=== PATIENT | male | born 1950 | race African-American/Black ===

== ENCOUNTER 2017-05-25 05:42 | Inpatient (IN) | payer OTHER ==
[2017-05-25] VITALS (18 sets, daily range): BP systolic 96–128; BP diastolic 58–74
[~2017-05-25] VITALS: Ht 188 cm; Wt 72.9 kg
--- NOTE | ~2017-05-25 | HC ---
[facility] [place] [address] CONSULTATION Name: JINNY BURT Room #: 245-P ADM IN M.R.#: [id number] Admission: 05/25/17 Attend Phys: Cory Collier MD Discharge: Date of : 48 Report #: [id number] THIS REPORT FOR: //name// CC: Simon Collier REASON FOR CONSULTATION: I was asked to evaluate concerning healthcare-associated, ventilator-associated pneumonia. HISTORY OF PRESENT ILLNESS: The patient was a 66-year-old who was initially admitted to [facility] on January 18 where he was found to be poorly responsive and had aspirated. He was intubated and had evidence of a large right pneumonia and pleural effusion. He has bullous emphysema and there was some concern that he had hemorrhage in one of the bullae. He required tracheostomy and a PEG tube placement and was transferred to [facility] for ventilatory weaning. This did not occur and ultimately transferred to [facility] for further care. He is now admitted with increasing pulmonary infiltrates and oxygen requirements. The patient was unable to give me any further details of his history. He had a left lower lobe infiltrate seen on x-ray yesterday. Has a moderate amount of tracheal secretions. No recent antibiotics. ALLERGIES: None. MEDICATIONS: As noted on his NOV. PAST MEDICAL HISTORY: BPH, hypertension, atrial fibrillation, emphysema, COPD, spontaneous pneumothorax, pancreatic cyst, respiratory failure. FAMILY HISTORY AND SOCIAL HISTORY: Otherwise not available. REVIEW OF SYSTEMS: The patient has a tracheostomy, peripheral IV in his right neck, indwelling Hancock catheter, PEG tube, incontinent of liquid stool. PHYSICAL EXAMINATION: VITAL SIGNS: He is afebrile and hemodynamically stable. He is on FIO2 of 50%. GENERAL: He was alert and cooperative. HEENT: Unremarkable. Tracheostomy site was unremarkable. LUNGS: Coarse bilaterally. HEART: Regular, without murmur. ABDOMEN: Soft with PEG site unremarkable. Indwelling Hancock catheter. The patient was incontinent of liquid stool that was throughout his bed. EXTREMITIES: Unremarkable. Generalized weakness noted. LABORATORY STUDIES: Sodium 122, potassium 6.2, bicarbonate 38, creatinine 0.5, albumin of 1.6. Troponin negative. BNP 2800. INR 1.1. Hemoglobin 8.4, [address] [address] CONSULTATION Name: JINNY BURT Room #: [address] [place] [address] IN M.R.#: [id number] Admission: 05/25/17 Attend Phys: Cory Collier MD Discharge: Date of : 48 Report #: [id number] platelet count 603,000. WBC 8.0, 81% segs, 0% bands, 4% lymphs. C. difficile by PCR is pending. MRSA by PCR is pending. Urinalysis unremarkable. ABG on FiO2 of 50% showed a pO2 of 85, pCO2 77, pH 7.34. Blood and sputum cultures are pending. Chest x-ray: Cardiomegaly with vascular congestion and bilateral pleural effusions with atelectasis and infiltrate in the bases. This is more marked on the right. Abdominal x-ray: Nonspecific bowel gas pattern. Lower extremity ultrasound negative for DVT. IMPRESSION: Respiratory failure with basilar infiltrates and purulent sputum production associated with hyponatremia and hyperkalemia. This fits with healthcare-associated pneumonia, ventilator-associated. Need to be concerned about nosocomial organisms. PLAN: Recommend broad antibiotic coverage pending culture results. The patient had liquid stools after receiving Kayexalate. We will need to ensure no C. difficile colitis as well. We will continue full support in the Intensive Care Unit and discuss with nursing staff. We will adjust antibiotic course pending culture results. By: 1625 2043 Jose Luis Crouch MD /nt
--- NOTE | ~2017-05-25 | EKG ---
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 Marina GAGE : 1950 Requested By: Susanna Thompson Order Number: [id number] MD: Fausto Royal Measurements Intervals [place] Rate: 68 P: 81 PA: 153 QRS: -16 QRSD: 125 T: 78 QT: 408 QTc: 434 Interpretive Statements Sinus rhythm Nonspecific intraventricular conduction delay Anterior infarct, old Compared to ECG 05/25/2017 07:31:18 Intraventricular conduction delay now present Criteria for anterior infarct more prominent Right bundle-branch block no longer present Electronically Signed On 05-25-2017 17:08:39 CDT by Fausto Royal [email or web address] <ELECTRONICALLY SIGNED> By: Fausto Royal MD, [facility] 05/25/17 1708 1214 1214 Fausto Royal MD, [facility] /EPI
--- NOTE | ~2017-05-25 | H ---
[facility] [place] [address] HISTORY AND PHYSICAL Name: JINNY BURT Room #: 245-P ADM IN M.R.#: [id number] Admission: 05/25/17 Attend Phys: Cory Collier MD Discharge: Date of : 48 Report #: [id number] THIS REPORT FOR: //name// CC: Simon Collier DATE OF SERVICE: 05/25/2017 CHIEF COMPLAINT: Shortness of breath. HISTORY OF PRESENT ILLNESS: The patient is a 66-year-old gentleman transferred from [facility] for continued care of recent respiratory failure. The history is very limited as he is not able to provide much detail. However, there were concerns of developing pneumonia based on x-ray and changes in oxygen requirement. He was also noted to have significant electrolyte lab abnormalities as well with severe hyponatremia and hyperkalemia. PAST MEDICAL HISTORY: Chronic hypoxic hypercapnic respiratory failure. He had previously been treated at [facility], ventilator dependence. PAST SURGICAL HISTORY: He has had a trach and PEG. FAMILY HISTORY: Unknown. SOCIAL HISTORY: Unknown. ALLERGIES: None. MEDICATIONS: DuoNeb, amiodarone, Hytrin, Remeron, Xanax, Pulmicort, MiraLax. REVIEW OF SYSTEMS: He opens his eyes to his name, but really cannot provide any other review or details. PHYSICAL EXAMINATION: VITAL SIGNS: Temperature 36.5, pulse 65, respirations 20, blood pressure 102/66, O2 sat 98% on the ventilator, 50% FIO2. GENERAL, HEAD AND NECK: Unremarkable. LUNGS: Clear anteriorly. HEART: Regular, no murmur. ABDOMEN: Soft, normoactive bowel sounds. PEG tube in place. EXTREMITIES: No cyanosis, clubbing or edema. LABORATORY DATA: Sodium 119, potassium 7, creatinine 0.5. White count is 8, hemoglobin 8.4. ABG with pH 7.3, pCO2 80, pO2 109. Chest x-ray shows bilateral pleural effusions with atelectasis. [facility] [place] [address] HISTORY AND PHYSICAL Name: JINNY BURT Room #: 245-P [facility] IN M.R.#: [id number] Admission: 05/25/17 Attend Phys: Cory Collier MD Discharge: Date of : 48 Report #: [id number] ASSESSMENT: 1. Acute on chronic hypercapnic respiratory failure. 2. Hyponatremia. 3. Hyperkalemia. 4. Anemia of chronic disease. 5. Ventilator dependence. 6. Bilateral pleural effusions. PLAN: He has been assessed by the Renal Service to address his electrolyte disturbance. I will ask the Pulmonary Service to help manage the ventilator and address the effusions to see if thoracentesis is indicated. Otherwise, full ICU supportive measures in place. <ELECTRONICALLY SIGNED> By: Devonte Awad MD 05/27/17 0948 1035 1055 Devonte Awad MD /warren
--- NOTE | ~2017-05-25 | EKG ---
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
--- NOTE | ~2017-05-25 | HC ---
[facility] [place] [address] CONSULTATION Name: JINNY BURT Room #: 462-P ADM IN M.R.#: [id number] Admission: 05/25/17 Attend Phys: Cory Collier MD Discharge: Date of : 48 Report #: [id number] THIS REPORT FOR: //name// CC: Simon Collier REASON FOR CONSULTATION: Hyponatremia and hyperkalemia with respiratory failure. HISTORY OF PRESENT ILLNESS: The patient is not able to provide us with any history. He has mental status issues, he is a chronic vent-dependent and was transferred from [facility]. He had a chest x-ray done yesterday and this showed a possible pneumonia. He was transferred for further evaluation and management. On presentation to the emergency room, he was found to have hyponatremia and hyperkalemia. His creatinine is on the low side; however, he has no muscle mass. He had respiratory failure with a pCO2 of 80 on presentation. There is a mention in the [facility] that he has almost 100-page history from [facility]; however, I am not able to provide any of those information. He had some EKG changes for his hyperkalemia. It does look like that there is a note from [facility] that he is a chronic vent-dependent patient with history of hypertension, major mental status issues for unclear reasons to me. PAST MEDICAL HISTORY: 1. Chronic vent dependency. 2. Major mental status issues. Other parts of the history unavailable. PAST SURGICAL HISTORY: Tracheostomy. FAMILY HISTORY: Unobtainable given the patient's mental status. REVIEW OF SYSTEMS: Unobtainable given the patient's mental status. SOCIAL HISTORY: He resides at the [facility]. CURRENT EMERGENCY ROOM MEDICATIONS: Include vancomycin, Zosyn, levofloxacin, normal saline, hydrocortisone. PHYSICAL EXAMINATION: VITAL SIGNS: The patient is on the vent. Blood pressure is 102/66. HEAD AND NECK: He has tracheostomy with very dry mucous membrane. CHEST: No crackles. CARDIOVASCULAR: No rub detected. [facility] [address] [place] [address] CONSULTATION Name: JINNY BURT Room #: 462-P ADM IN M.R.#: [id number] Admission: 05/25/17 Attend Phys: Cory Collier MD Discharge: Date of : 48 Report #: [id number] ABDOMEN: Soft with a PEG tube. LOWER EXTREMITIES: +2 edema in the thigh areas. LABORATORY VALUES: Reviewed. Sodium was confirmed to be 118, 119; potassium was confirmed to be 7.5, 7. Creatinine was 0.5. ASSESSMENT, IMPRESSION: 1. Hyponatremia. 2. Hyperkalemia with a normal kidney function. 3. Respiratory failure. 4. Anemia. 5. Thrombocytosis. PLAN: 1. We really need to get the patient's medical records to clarify further on his previous medical problems. He has a low sodium with a high potassium and those were addressed appropriately in the Emergency Room. I will ____ the treatment of his hyperkalemia. 2. We will obtain basic labs for hyponatremia and hyperkalemia. 3. Place a Hancock catheter. 4. It is not clear to me if the patient had been on steroids in the past or not; however, hypoadrenalism will need to be ruled out and the patient has already received a dose of steroids in the Emergency Room. 5. Keep on normal saline for now. 6. Watch mental status. 7. Cultures were obtained. 8. Antibiotics per ID. 9. Pulmonary to see for chronic vent management. <ELECTRONICALLY SIGNED> By: Simon Thompson MD 05/28/17 0736 0841 0914 Simon Thompson MD /nt
--- NOTE | ~2017-05-25 | 2DMMODE ---
[facility] [address] [place] [address] 2 D/M-MODE ECHOCARDIOGRAM Name: JINNY BURT Room #: 245-P ADM IN M.R.#: [id number] Admission: 05/25/17 Attend Phys: Maricarmen Griggs Discharge: Date of : 48 Date of Service: 05/25/17 1629 Report #: [id number] THIS REPORT FOR: //name// APPROVED REPORT Study performed: 05/25/2017 15:25:03 EXAM: Comprehensive 2D, Doppler, and color-flow Echocardiogram Patient Location: ICU Room #: [facility] Status: routine BSA: 2.08 HR: 68 bpm BP: 109/63 mmHg Other Information Study Quality: Adequate Indications Congestive Heart Failure Dyspnea 2D Dimensions RVDd: 38.91 mm LVEF(%): 56.13 (>50%) IVSd: 10.46 (7-11mm) LVOT Diam: 22.71 (18-24mm) LVDd: 42.63 mm PWd: 9.61 (7-11mm) LVDs: 30.25 (25-40mm) Aortic Root: 34.93 mm IVC: 23.00 mm Merritt's LVEF: 56.13 % Volumes Left Atrial Volume (Systole) Single Plane 4CH: 54.41 mL Single Plane 2CH: 56.64 mL LA ESV Index: 30.00 mL/m2 Aortic Valve AoV Peak Marlon.: 1.55 m/s AO Peak Gr.: 9.67 mmHg LVOT Max P.02 mmHg LVOT Max V: 1.12 m/s MOISES Vmax: 2.92 cm2 Mitral Valve E/A Ratio: 1.6 MV Decel. Time: 353.86 ms [facility] [address] [place] [address] 2 D/M-MODE ECHOCARDIOGRAM Name: JINNY BURT Room #: 245-P [facility] IN ..#: [id number] Admission: 05/25/17 Attend Phys: Maricarmen Griggs Discharge: Date of : 48 Date of Service: 05/25/17 1629 Report #: [id number] E Max Marlon.: 0.84 m/s MV A Marlon.: 0.53 m/s MV PHT: 102.62 ms IVRT: 96.89 ms Pulmonary Valve PV Peak Marlon.: 0.94 m/s PV Peak Gr.: 3.55 mmHg Tricuspid Valve TR Peak Marlon.: 3.38 m/s RAP Estimate: 10.00 mmHg TR Peak Gr.: 45.77 mmHg PA Pressure: 30.00 mmHg Left Ventricle The left ventricle is normal size. There is normal LV segmental wall motion. There is normal left ventricular wall thickness. The left ventricular systolic function is normal. The left ventricular ejection fraction is within the normal range. LVEF is 55-60%. The left ventricular diastolic function is normal. Right Ventricle The right ventricle is normal size. The right ventricular systolic function is normal. Atria The left atrium size is normal. Right atrium is dilated. Aortic Valve Poorly imaged. Grossly normal No aortic regurgitation is present. There is no aortic valvular stenosis. Mitral Valve The mitral valve is normal in structure. There is no mitral valve regurgitation noted. No evidence of mitral valve stenosis. Tricuspid Valve The tricuspid valve is normal in structure. There is mild tricuspid regurgitation. The right atrial pressure is estimated at 10 mmHg. There is moderate pulmonary hypertension. Pulmonic Valve The pulmonary valve is normal in structure. There is no pulmonic valvular regurgitation. Great Vessels The aortic root is normal in size. IVC is dilated and collapses [facility] [address] [place] [address] 2 D/M-MODE ECHOCARDIOGRAM Name: JINNY BURT Room #: 245-P ADM IN M.R.#: [id number] Admission: 05/25/17 Attend Phys: Maricarmen Griggs Discharge: Date of : 48 Date of Service: 05/25/17 1629 Report #: [id number] <50% with inspiration. Pericardium Large circumferential pericardial effusion. No echo indications of pericardial tamponade. <Conclusion> The left ventricular systolic function is normal. LVEF is 55-60%. There is normal LV segmental wall motion. Poorly imaged. Grossly normal. No aortic valvular stenosis. The mitral valve is normal in structure. No mitral valve regurgitation noted. Pulmonary artery pressure of 50mmHg Large circumferential pericardial effusion. No clear cut signs of tamponade physiology <ELECTRONICALLY SIGNED> By: Fausto Royal MD, [facility] 05/25/17 1629 1629 162 Fausto Royal MD, FACC /INF
--- NOTE | ~2017-05-25 | EKG ---
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
--- NOTE | ~2017-05-25 | D ---
[facility] [place] [address] DISCHARGE SUMMARY Name: JINNY BURT Room #: 462-P [facility] IN M.R.#: [id number] Admission: 05/25/17 Attend Phys: Cory Collier MD Discharge: 05/28/17 Date of : 48 Report #: [id number] THIS REPORT FOR: //name// CC: Simon Collier DATE OF SERVICE: 05/28/2017 FINAL DIAGNOSES: 1. Hyponatremia. 2. Hyperkalemia. 3. Chronic respiratory failure. 4. Ventilator dependent. 5. Paroxysmal atrial fibrillation. 6. Anemia of chronic disease. 7. Severe protein-calorie malnutrition. 8. Healthcare-associated pneumonia. HOSPITAL COURSE: The patient was admitted from his long-term care ventilator unit with tachycardia and altered mental status. He was found to have paroxysmal atrial fibrillation and also severe hyponatremia with sodium around 118 and hyperkalemia with potassium around 7. The renal service saw him and adjusted fluids and gave him treatment and things slowly corrected. By the time of discharge, his potassium had normalized and his ____ slightly low side and sodium had climbed slowly to 128. His mental status was much improved. Pulmonary service managed the ventilator. Dr. Jose Luis Crouch saw him and treated him for healthcare-associated pneumonia with IV antibiotics. He was noted with protein calorie malnutrition with albumin of 1.6. PHYSICAL EXAMINATION: GENERAL: On the day of discharge, he was resting comfortably in bed on the ventilator. VITAL SIGNS: He had stable vital signs: Stable, heart rate. LUNGS: Clear. HEART: Regular. ABDOMEN: Soft, normoactive bowel sounds. EXTREMITIES: Showed no edema. DIS[facility]ITION[facility] [address] [place] [address] DISCHARGE SUMMARY Name: JINNY BURT Room #: 462-P [facility] IN M.R.#: [id number] Admission: 05/25/17 Attend Phys: Cory Collier MD Discharge: 05/28/17 Date of : 48 Report #: [id number] weaning attempts. I have signed all his transfer orders and medications and follow up lab data. He will be under the care of Dr. Thaddeus Crouch on transfer. <ELECTRONICALLY SIGNED> By: Devonte Awad MD 06/01/17922 Devonte Awad MD /nt
[2017-05-25 06:09] LABS: ABG SAMPLE TYPE ARTERIAL; BE(vivo) 14.6 mmol/L (-2 to +3); HCO3 42.7 mmol/L (22.0-26.0); LACTATE 1.07 mmol/L (0.5-2.0); O2(CT) 12.5 mL/dL (15.0-23.0); O2Hb 96.9 % (92.0-98.0); PO2 109.4 mmHg (80.0-100.0); pH 7.343 (7.360-7.450); sO2 97.5 % (92.0-98.0); tCO2 45.2 mmol/L (24.0-30.0)
[2017-05-25 06:10] LABS: PCO2 80.4 mmHg (35.0-45.0); STICK SITE R.RADIAL; TIDAL VOLUME 450 ml
[2017-05-25 06:32] LABS: HEMATOCRIT 25.2 % (42.0-52.0); HEMOGLOBIN 8.4 gm/dL (14.0-18.0); MCH 25.1 pg (26.0-34.0); MCHC 33.4 g/dL (28.0-37.0); MCV 75.2 fL (80.0-100.0); PLATELET COUNT 603 thou/uL (150-400); RBC 3.35 mil/uL (4.50-6.00); RDW 18.3 % (10.5-14.5)
[2017-05-25 06:33] LABS: MANUAL DIFF YES
[2017-05-25 06:50] LABS: BUN 36 mg/dL (7-18); CALCIUM 8.3 mg/dL (8.5-10.1); CHLORIDE 82 mmol/L (98-107); CO2 39 mmol/L (21-32); CREATININE 0.5 mg/dL (0.7-1.3); GLUCOSE 109 mg/dL (74-106)
[2017-05-25 06:53] LABS: ANION GAP < 0 mmol/L (7-16)
[2017-05-25 06:54] LABS: POTASSIUM 7.5 mmol/L (3.5-5.1); SODIUM 118 mmol/L (136-145)
[2017-05-25 07:27] LABS: ABSOLUTE NEUTROPHILS 6.5 thou/uL (1.4-8.2); NUCLEATED RBCS 2 /100WBC; TOTAL CELL COUNT 100
[2017-05-25 07:28] LABS: ANISOCYTOSIS 2+; HYPOCHROMASIA 2+; POLYCHROMASIA OCCASIONAL
[2017-05-25 08:20] LABS: BUN 33 mg/dL (7-18); CALCIUM 8.7 mg/dL (8.5-10.1); CHLORIDE 84 mmol/L (98-107); CO2 38 mmol/L (21-32); CREATININE 0.5 mg/dL (0.7-1.3); GLUCOSE 93 mg/dL (74-106)
[2017-05-25 08:21] LABS: ANION GAP < 0 mmol/L (7-16)
[2017-05-25 08:22] LABS: SODIUM 119 mmol/L (136-145)
[2017-05-25] MEDS ORDERED: DUONEB 2.5-0.5 M3 ML INH (08:49)
[2017-05-25] MEDS ORDERED: ALBUTEROL2.5 MG/31 INH (08:49)
[2017-05-25] MEDS ORDERED: MAPAP160 MG/52 PER TUBE (08:51)
[2017-05-25] MEDS ORDERED: PACERONE 200 M200 M1 PER TUBE (08:52)
[2017-05-25] MEDS ORDERED: MIRALAX17 GM PER TUBE (08:52)
[2017-05-25] MEDS ORDERED: REMERON15 MG PER TUBE (08:53)
[2017-05-25] MEDS ORDERED: XANAX 0.25 MG0.25 MG PER TUBE (08:53)
[2017-05-25] MEDS ORDERED: SENNA8.6 MG PER TUBE (08:54)
[2017-05-25] MEDS ORDERED: PULMICORT0.5 MG/22 INH (08:58)
[2017-05-25] MEDS ORDERED: HYTRIN 5 M5 MG/1 CAP PER TUBE (08:58)
[2017-05-25 10:56] LABS: URINE BILIRUBIN NEGATIVE (Negative); URINE BLOOD 2+ (Negative); URINE COLOR YELLOW; URINE GLUCOSE-RANDOM* NEGATIVE (Negative); URINE KETONES NEGATIVE (Negative); URINE NITRITE NEGATIVE (Negative); URINE PROTEIN (DIPSTICK) NEGATIVE (Negative); URINE UROBILINOGEN 0.2 E.U./dl (0.2-1.0)
[2017-05-25 11:00] LABS: URINE CREATININE-RANDOM* < 13.0 mg/dL
[2017-05-25 11:21] LABS: BACTERIA 1-9 Few /HPF (None Seen); CASTS None Seen /LPF (None Seen); CRYSTALS None Seen /LPF (None Seen); SQUAMOUS 0-3 Few /LPF (0-3); URINE RBC 3-10 Few /HPF (0-2); URINE WBC None Seen /HPF (0-5)
[2017-05-25 11:59] LABS: APTT 27.9 Seconds (24.5-32.8); INR 1.1; PROTIME 11.1 Seconds (9.3-11.4)
[2017-05-25 13:10] LABS: ALBUMIN 1.6 g/dL (3.4-5.0); CALCIUM 8.3 mg/dL (8.5-10.1); CREATININE 0.5 mg/dL (0.7-1.3); PHOSPHORUS 4.1 mg/dL (2.5-4.9)
[2017-05-25 13:12] LABS: ABG SAMPLE TYPE ARTERIAL; BE(vivo) 13.3 mmol/L (-2 to +3); HCO3 41.1 mmol/L (22.0-26.0); LACTATE 1.28 mmol/L (0.5-2.0); O2(CT) 11.5 mL/dL (15.0-23.0); O2Hb 95.1 % (92.0-98.0); PO2 85.7 mmHg (80.0-100.0); pH 7.343 (7.360-7.450); sO2 95.5 % (92.0-98.0); tCO2 43.4 mmol/L (24.0-30.0)
[2017-05-25 13:13] LABS: PCO2 77.3 mmHg (35.0-45.0); STICK SITE R.RADIAL
[2017-05-25 13:14] LABS: TIDAL VOLUME 500 ml
[2017-05-25 13:22] LABS: POTASSIUM 6.2 mmol/L (3.5-5.1)
[2017-05-25 18:03] LABS: CALCIUM 8.2 mg/dL (8.5-10.1); CREATININE 0.5 mg/dL (0.7-1.3); POTASSIUM 5.7 mmol/L (3.5-5.1)
[2017-05-26] VITALS (42 sets, daily range): BP systolic 80–119; BP diastolic 50–87
[2017-05-26 04:11] LABS: HEMATOCRIT 22.4 % (42.0-52.0); HEMOGLOBIN 7.1 gm/dL (14.0-18.0); MCHC 31.8 g/dL (28.0-37.0); MCV 75.3 fL (80.0-100.0); PLATELET COUNT 553 thou/uL (150-400); RBC 2.97 mil/uL (4.50-6.00); RDW 18.3 % (10.5-14.5)
[2017-05-26 04:16] LABS: MANUAL DIFF YES
[2017-05-26 04:19] LABS: CALCIUM 7.8 mg/dL (8.5-10.1); CREATININE 0.5 mg/dL (0.7-1.3)
[2017-05-26 04:28] LABS: POTASSIUM 4.4 mmol/L (3.5-5.1)
[2017-05-26 05:11] LABS: ABSOLUTE NEUTROPHILS 9.2 thou/uL (1.4-8.2); ANISOCYTOSIS 2+; TOTAL CELL COUNT 100
[2017-05-26 05:17] LABS: ABG SAMPLE TYPE ARTERIAL; HCO3 36.7 mmol/L (22.0-26.0); LACTATE 1.51 mmol/L (0.5-2.0); O2(CT) 11.4 mL/dL (15.0-23.0); O2Hb 93.7 % (92.0-98.0); PCO2 56.3 mmHg (35.0-45.0); PO2 73.8 mmHg (80.0-100.0); STICK SITE R.RADIAL; pH 7.432 (7.360-7.450); sO2 94.9 % (92.0-98.0); tCO2 38.4 mmol/L (24.0-30.0)
[2017-05-26 05:18] LABS: TIDAL VOLUME 500 ml
[2017-05-27] VITALS (15 sets, daily range): BP systolic 95–128; BP diastolic 60–82
[2017-05-27 05:18] LABS: ALBUMIN 1.6 g/dL (3.4-5.0); CALCIUM 7.6 mg/dL (8.5-10.1); CREATININE 0.5 mg/dL (0.7-1.3); PHOSPHORUS 2.4 mg/dL (2.5-4.9); POTASSIUM 3.7 mmol/L (3.5-5.1)
[2017-05-27 13:08] LABS: CORTISOL 30 MIN 36.9 ug/dL (Not Estab.); CORTISOL 60 MIN 38.6 ug/dL (Not Estab.); CORTISOL BASELINE 26.3 ug/dL (())
[2017-05-28] VITALS: BP 98/61
[2017-05-28 03:58] VITALS: BP 117/58
[2017-05-28 06:41] LABS: ALBUMIN 1.6 g/dL (3.4-5.0); CALCIUM 7.7 mg/dL (8.5-10.1); CREATININE 0.4 mg/dL (0.7-1.3); POTASSIUM 3.3 mmol/L (3.5-5.1)
[2017-05-28 07:27] VITALS: BP 104/64
[2017-05-28] MEDS ORDERED: ZOSYN 3.3753.375 GM IV (09:26)
[2017-05-28] MEDS ORDERED: CARDIZEM30 MG PER TUBE (09:26)
[2017-05-28] MEDS ORDERED: HYDROCODON-ACE1 EAC7 PO (09:26)
[2017-05-28] MEDS ORDERED: FUROSEMIDE20 MG/2 ML IV PUSH (09:26)
[2017-05-28] MEDS ORDERED: VANCO1GM IV (09:26)
[2017-05-28] MEDS ORDERED: ENOXAPARIN40 MG/0.1 SUBQ (09:26)
[2017-05-28 11:50] VITALS: BP 110/52
[2017-05-28 16:36] VITALS: BP 94/56
[2017-05-28 19:21] VITALS: BP 99/65
== END 2017-05-28 20:20 | DRG 871 ==
LOC: ER 05:42 → EROBS 07:13 → ICU 07:13 → 4W 05-27 13:55
PROVIDERS: Emergency Medicine; Hospitalist; Internal Medicine Geriatric Medicine; Internal Medicine Pulmonary Disease
PROC: 5A1945Z Respiratory Ventilation, 24-96 Consecutive Hours (ICD-10-PCS; principal; 2017-05-25)
PROC: 0BH17EZ Insertion of Endotracheal Airway into Trachea, Via Natural or Artificial Opening (ICD-10-PCS; principal; 2017-05-25)
DX: A41.9 Sepsis, unspecified organism (principal); J96.22 Acute and chronic respiratory failure with hypercapnia; J18.9 Pneumonia, unspecified organism; E43 Unspecified severe protein-calorie malnutrition; J96.21 Acute and chronic respiratory failure with hypoxia; E87.0 Hyperosmolality and hypernatremia; E87.1 Hypo-osmolality and hyponatremia; J44.0 Chronic obstructive pulmonary disease with (acute) lower respiratory infection; J90 Pleural effusion, not elsewhere classified; J93.9 Pneumothorax, unspecified; Z99.11 Dependence on respirator [ventilator] status; J95.851 Ventilator associated pneumonia; Y84.8 Other medical procedures as the cause of abnormal reaction of the patient, or of later complication, without mention of misadventure at the time of the procedure; Y82.8 Other medical devices associated with adverse incidents; D47.3 Essential (hemorrhagic) thrombocythemia; E87.5 Hyperkalemia; Y95 Nosocomial condition; E87.6 Hypokalemia; D69.6 Thrombocytopenia, unspecified; N40.0 Benign prostatic hyperplasia without lower urinary tract symptoms; I10 Essential (primary) hypertension; I48.0 Paroxysmal atrial fibrillation; D63.8 Anemia in other chronic diseases classified elsewhere; Z93.0 Tracheostomy status; Z68.20 Body mass index [BMI] 20.0-20.9, adult; Z93.1 Gastrostomy status
CPT/HCPCS: 10045; 10078

== ENCOUNTER 2017-05-28 20:40 | Observation (INO) | payer OTHER ==
[~2017-05-28] VITALS: Ht 190.5 cm; Wt 70.9 kg
[~2017-05-28 20:40] MED LIST: ALBUTEROL2.5 MG/31 INH; CARDIZEM30 MG PER TUBE; DUONEB 2.5-0.5 M3 ML INH; ENOXAPARIN40 MG/0.1 SUBQ; FUROSEMIDE20 MG/2 ML IV PUSH; HYDROCODON-ACE1 EAC7 PO; HYTRIN 5 M5 MG/1 CAP PER TUBE; MAPAP160 MG/52 PER TUBE; MIRALAX17 GM PER TUBE; PACERONE 200 M200 M1 PER TUBE; PULMICORT0.5 MG/22 INH; REMERON15 MG PER TUBE; SENNA8.6 MG PER TUBE; VANCO1GM IV; XANAX 0.25 MG0.25 MG PER TUBE; ZOSYN 3.3753.375 GM IV
[2017-05-28 20:41] VITALS: BP 88/48
[2017-05-28 21:56] VITALS: BP 101/62
[2017-05-29 03:49] VITALS: BP 109/59
[2017-05-29 07:11] VITALS: BP 102/60
== END 2017-05-29 13:47 | disposition short-term general hospital (02) ==
LOC: ER 20:40 → 4W 21:37 → EROBS 21:37 → 4W 21:57
DX: J96.12 Chronic respiratory failure with hypercapnia (principal); I10 Essential (primary) hypertension; J44.9 Chronic obstructive pulmonary disease, unspecified; F41.9 Anxiety disorder, unspecified; I95.9 Hypotension, unspecified; I48.0 Paroxysmal atrial fibrillation

== ENCOUNTER 2017-06-11 15:39 | Emergency (ER) | payer OTHER ==
[~2017-06-11] VITALS: Ht 177.8 cm; Wt 79.4 kg
[2017-06-11 16:12] LABS: HEMATOCRIT 29.2 % (42.0-52.0); HEMOGLOBIN 9.2 gm/dL (14.0-18.0); MCH 24.7 pg (26.0-34.0); MCHC 31.6 g/dL (28.0-37.0); MCV 78.3 fL (80.0-100.0); PLATELET COUNT 255 thou/uL (150-400); RBC 3.74 mil/uL (4.50-6.00); RDW 18.8 % (10.5-14.5); WBC 4.4 thou/uL (4.0-11.0)
[2017-06-11 16:13] LABS: MANUAL DIFF YES
[2017-06-11 16:16] VITALS: BP 107/59
[2017-06-11 16:24] LABS: CALCIUM 7.6 mg/dL (8.5-10.1); CREATININE 0.7 mg/dL (0.7-1.3)
[2017-06-11 16:26] LABS: APTT 26.6 Seconds (24.5-32.8); INR 1.1; PROTIME 10.9 Seconds (9.3-11.4)
[2017-06-11 16:30] LABS: ABSOLUTE NEUTROPHILS 2.9 thou/uL (1.4-8.2); ANISOCYTOSIS 1+; TOTAL CELL COUNT 100
[2017-06-11] MEDS ORDERED: DEXTROSE 500.5 GM/ML IV PUSH (16:54)
[2017-06-11 19:18] LABS: CLARITY CLOUDY; COLOR RED; TOTAL VOLUME 20 mL
[2017-06-11 19:30] LABS: BF NUCLEATED CELLS 377; BF RBC 46178
[2017-06-11 20:16] LABS: BF MACROPHAGE 41; BF NEUTROPHILS 36; MANUAL DIFF YES
[2017-06-12 14:09] LABS: BODY FLUID ALBUMIN 1.4 g/dL (()); BODY FLUID AMYLASE 76 U/L (()); BODY FLUID GLUCOSE 90 mg/dL (()); BODY FLUID LDH 239 IU/L (()); BODY FLUID PROTEIN 3.5 g/dL (())
== END 2017-06-11 20:13 | disposition short-term general hospital (02) ==
LOC: ER 15:39
PROVIDERS: Emergency Medicine; Radiology Diagnostic Radiology
DX: J90 Pleural effusion, not elsewhere classified (principal); J96.10 Chronic respiratory failure, unspecified whether with hypoxia or hypercapnia; I10 Essential (primary) hypertension; I48.91 Unspecified atrial fibrillation; J44.9 Chronic obstructive pulmonary disease, unspecified; F41.9 Anxiety disorder, unspecified; J93.9 Pneumothorax, unspecified; Z99.11 Dependence on respirator [ventilator] status

== ENCOUNTER 2017-08-14 20:31 | Inpatient (IN) | payer OTHER ==
[~2017-08-14] VITALS: Ht 190.5 cm; Wt 66.2 kg
[2017-08-14] VITALS (8 sets, daily range): BP systolic 103–123; BP diastolic 67–91
--- NOTE | ~2017-08-14 | O ---
[facility] [place] [address] OPERATIVE REPORT Name: JINNY BURT Room #: 247-P ADM IN M.R.#: [id number] Admission: 08/14/17 Attend Phys: Maricarmen Mario Discharge: Date of : 48 Report #: [id number] THIS REPORT FOR: //name// CC: Susanna Crouch [facility] physician/PCP Erick Mosley DATE OF SERVICE: 08/20/2017 PROCEDURE: 1. Tracheostomy revision. 2. Cauterization of tracheal stoma. 3. Change of tracheostomy tube. PREOPERATIVE DIAGNOSES: 1. Respiratory failure. 2. Tracheostomy dependence. 3. Tracheal hemorrhage. POSTOPERATIVE DIAGNOSES: 1. Respiratory failure. 2. Tracheostomy dependence. 3. Tracheal hemorrhage. SURGEON: Ravi Good MD ANESTHESIA: General. ESTIMATED BLOOD LOSS: 5 mL. COMPLICATIONS: None. SPECIMENS: None. FINDINGS: The patient was found to have a small ulceration in the posterior right tracheal wall. There was a small amount of fresh blood there and very slow oozing. This area was cauterized with suction cautery. The remainder of the tracheal stoma was dry and appeared healthy. INDICATIONS FOR PROCEDURE: The patient is a 66-year-old gentleman with history of respiratory failure and tracheostomy dependence. He was admitted for tracheal bleeding. He had tracheostomy tube placed approximately 4 months ago and has been on the vent. Review of his CT scan from 08/14/2017 showed that the tracheal diameter was approximately 4 cm and there was difficulty maintaining a good seal and he would have positional air leak with the tracheostomy tube and [facility] [address] [place] [address] OPERATIVE REPORT Name: JINNY BURT Room #: 247-P ADM IN M.R.#: [id number] Admission: 08/14/17 Attend Phys: Maricarmen Mario Discharge: Date of : 48 Report #: [id number] he continued to have a slow bleed with old blood being suctioned from the tracheostomy tube in small amounts. He was taken for tracheostomy revision on 08/18/2017 and had the tracheal stoma cauterized and also had his tracheostomy tube upsized from a #6 Shiley to a #8 Shiley. However, he continued to have small amounts of blood being suctioned from the tracheostomy and also a positional air leak and it was decided that he would benefit from a second look at the tracheostomy and also upsizing of the trach to a distal XLT in hopes that the cuff could be placed below the area of the expanded trachea in order to get a better seal. The risks, benefits and alternatives were discussed with him and he agreed to proceed. DESCRIPTION OF PROCEDURE: After informed consent was obtained, the patient was taken to the operating room and placed in supine position. He underwent general anesthesia. He was intubated from above by the anesthesia service with a size 6.5 endotracheal tube. This was passed through the cords until resistance was met. The tracheostomy tube was then withdrawn. The balloon of the endotracheal tube was then visualized in the trachea and this was advanced below the level of the stoma. The tracheostomy was then inspected. There was noted to be a small area of ulceration on the posterior wall of the trachea with a small amount of fresh blood. This was removed with suction cautery and this area was cauterized. The remainder of the tracheal stoma appeared dry and healthy and there was no other bleeding that was noted. The anesthesia service then slowly withdrew the endotracheal tube until it was superior to the stoma and a size 8 Shiley distal XLT tracheostomy tube was then placed into the stoma and into the trachea. The patient was then connected to the anesthesia circuit and tidal CO2 were confirmed. Surgicel was then packed around the tracheostomy tube and drain sponges were also placed. The trach was then secured with trach ties. The patient was then turned back over to the anesthesia service and successfully transported back to the ICU in stable condition. All counts were reported as correct and there were no complications during the procedure. <ELECTRONICALLY SIGNED> By: Ravi Good MD 08/23/17 1659 1315 1411 Ravi Good MD /nt
--- NOTE | ~2017-08-14 | O ---
[facility] [address] OPERATIVE REPORT Name: JINNY BURT Room #: 247-P ADM IN M.R.#: [id number] Admission: 08/14/17 Attend Phys: Maricarmen Mario Discharge: Date of : 48 Report #: [id number] THIS REPORT FOR: //name// CC: Susanna Crouch [facility] physician/PCP Erick Mosley DATE OF SERVICE: 08/18/2017 PROCEDURES: 1. Tracheostomy revision. 2. Control of tracheal hemorrhage. PREOPERATIVE DIAGNOSES: 1. Tracheostomy dependence. 2. Tracheal hemorrhage. POSTOPERATIVE DIAGNOSES: 1. Tracheostomy dependence. 2. Tracheal hemorrhage. SURGEON: Ravi Good M.D. ANESTHESIA: General. ESTIMATED BLOOD LOSS: 5 mL. COMPLICATIONS: None. SPECIMENS: None. FINDINGS: 1. The patient was found to have a slow bleeding from the superior aspect of the stoma and track of the tracheostomy. 2. His size 6 Shiley was replaced with a size 8 Shiley DCT tracheostomy tube. INDICATIONS FOR PROCEDURE: The patient is a 66-year-old gentleman with a history of COPD and trach and vent dependence. He recently had bleeding from the tracheostomy. It was also noted that he did not have a good seal while on the vent with the size 6 tracheostomy tube and it was decided that he would benefit from revision with placement of a larger trach and cauterization. The risks, benefits and alternatives were discussed with him and he agreed to proceed. DESCRIPTION OF PROCEDURE: After informed consent was obtained, the patient was [facility] [address] OPERATIVE REPORT Name: JINNY BURT Room #: 247-P [facility] IN M.R.#: [id number] Admission: 08/14/17 Attend Phys: Maricarmen Mario Discharge: Date of : 48 Report #: [id number] taken to the operating room and placed in supine position. He underwent general anesthesia with endotracheal intubation from the oral cavity. Once the endotracheal tube was placed, the tracheostomy tube cuff was deflated and that was removed. The tracheal stoma was then inspected. There was noted to be some fresh blood and slow oozing from the superior aspect of the stoma and the tracheostomy tract. This was cauterized with Bovie cautery and also with bipolar cautery. The skin was then widened by making a small inferior incision using Bovie cautery. Once all bleeding was controlled and the stoma was adequately widened, Anesthesia withdrew the endotracheal tube. So, it was just above the stoma and a size 8 DCT tracheostomy tube was placed into the trachea. The patient was connected to the anesthesia circuit and tidal CO2s were confirmed. Surgicel was then packed around the tracheostomy tube and the tracheostomy tube was secured with trach ties. The patient was then turned back over to the Anesthesia Service. He was successfully transported back to the ICU in stable condition. All counts were reported as correct and there were no complications during the procedure. <ELECTRONICALLY SIGNED> By: Ravi Good MD 08/19/17 1439 2202 [id number] Ravi Good MD /nt
--- NOTE | ~2017-08-14 | EKG ---
[address] [employer] [place] [address] ELECTROCARDIOGRAM REPORT Name: JINNY BURT Room #: 247-P ADM IN M.R.#: [id number] Admission: 08/14/17 Attend Phys: Maricarmen Mario Discharge: Date of : 48 Report #: [id number] THIS REPORT FOR: //name// 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 : 1950 Requested By: Jose Luis Grayson Order Number: [id number] MD: Fausto Royal Measurements Intervals [place] Rate: 121 P: [place]: QRS: -7 QRSD: 114 T: 261 QT: 340 QTc: 483 Interpretive Statements Atrial flutter with variable AV block Nonspecific T wave abnormality Possible septal infarct, old Compared to ECG 05/25/2017 12:14:31 atrial flutter is now present Electronically Signed On 08-15-2017 14:20:53 COMMUNITY PLANNING TECHNICIAN by Fausto Royal [email or web address] <ELECTRONICALLY SIGNED> By: Fausto Royal MD, [facility] 08/15/17 1420 29 29 Fausto Royal MD, [facility] /EPI
--- NOTE | ~2017-08-14 | D ---
[facility] [place] [address] DISCHARGE SUMMARY Name: JINNY BURT Room #: 247-P [facility] IN M.R.#: [id number] Admission: 08/14/17 Attend Phys: Maricarmen Mario Discharge: 08/24/17 Date of : 48 Report #: [id number] THIS REPORT FOR: //name// CC: Susanna Crouch [facility] physician/PCP Erick Mosley DATE OF SERVICE: 08/24/2017 FINAL DIAGNOSES: 1. Tracheal ulcer. 2. Hemoptysis. 3. Chronic respiratory failure. 4. Ventilator dependence. 5. Chronic obstructive pulmonary disease. 6. Liver hemangioma. 7. Anemia of chronic disease. 8. Severe protein-calorie malnutrition with albumin of 2.1. HOSPITAL COURSE: The patient was admitted with hemoptysis. He had several bronchoscopies during his stay, these were unremarkable. Dr. Good saw him from ENT. Ultimately, he went back for a second trach change and revision and a tracheal ulcer was seen. This was cauterized and a longer trach was replaced. Please see that op note. This seemed to resolve his bleeding. He also had some abdominal discomfort. An ultrasound revealed a possible liver mass, but CT with contrast confirmed hemangioma according to the radiology report. He had no other interval complications. DISPOSITION: He is being transferred back to [facility]. He will continue all current care, medications, ventilator status. I have signed all his transfer orders. He will be under the care of Dr. Crouch. <ELECTRONICALLY SIGNED> By: Devonte Awad MD 08/26/17 1156 1600 1650 Devonte Awad MD /nt
--- NOTE | ~2017-08-14 | HC ---
[facility] [place] [address] CONSULTATION Name: JINNY BURT Room #: 247-P ADM IN M.R.#: [id number] Admission: 08/14/17 Attend Phys: Maricarmen Mario Discharge: Date of : 48 Report #: [id number] THIS REPORT FOR: //name// CC: Susanna Crouch [facility] physician/PCP Erick Mosley DATE OF SERVICE: 08/15/2017 REASON FOR CONSULTATION: Hemoptysis. IMPRESSION: 1. Hemoptysis, question etiology. 2. Acute on chronic hypoxic, hypercapnic respiratory failure. 3. Pleural effusions. 4. History of atrial fibrillation. PLAN: Bronchoscopy, aerosol therapy, antibiotics per ID. May require ENT evaluation. HISTORY: A 66-year-old male discharged from hospital on May 28 with hyponatremia, hyperkalemia, chronic respiratory failure and healthcare-associated pneumonia. Has been having hemoptysis at facility at [facility]. Bleeding seemed to get worse yesterday and transferred to [facility]. Bronchoscopy was done today that did not reveal any definite bleeding site. PAST MEDICAL HISTORY/SURGERIES: Tracheostomy. MEDICATIONS: Have included DuoNeb, amiodarone, Lasix and Tylenol. Meds noted on NOV. FAMILY HISTORY: Unobtainable. SOCIAL HISTORY: Unobtainable. REVIEW OF SYSTEMS: The patient awake and complains of cough. No definite chest pain or palpitations or abdominal pain. OBJECTIVE: VITAL SIGNS: Temp 98.5, pulse 94, respirations 20 and BP 101/72. Trach in place, blood noted. LUNGS: Coarse, left greater than the right. HEART: Regular. ABDOMEN: Bowel sounds present. EXTREMITIES: Showed no edema. [facility] [address] [place] [address] CONSULTATION Name: JINNY BURT Room #: 247-P ADM IN M.R.#: [id number] Admission: 08/14/17 Attend Phys: Maricarmen Mario Discharge: Date of : 48 Report #: [id number] LABORATORY DATA: INR 1.1. White count 6.3, hemoglobin 9.7, platelets 322, bands 1. BUN 29 and creatinine 1.1. Albumin 3. ProBNP 515. ____. pH 7.43, pCO2 [address] PE protocol showed no PE. Bilateral infiltrates, left greater than right with emphysema. Influenza negative. <ELECTRONICALLY SIGNED> By: Susanna Thompson MD 08/16/17 1624 1601 0338 Susanna Thompson MD /nt
--- NOTE | ~2017-08-14 | H ---
[facility] [place] [address] HISTORY AND PHYSICAL Name: JINNY BURT Room #: 247-P [facility] IN M.R.#: [id number] Admission: 08/14/17 Attend Phys: Maricarmen Mario Discharge: 08/24/17 Date of : 48 Report #: [id number] THIS REPORT FOR: //name// CC: Susanna Crouch [facility] physician/PCP Erick Mosley ATTENDING PHYSICIAN: [place] Crouch MD. CHIEF COMPLAINT: Blood-tinged sputum around the tracheostomy site. HISTORY OF PRESENT ILLNESS: The patient is a 66-year-old gentleman who is known to have chronic obstructive pulmonary disease with chronic respiratory failure, on ventilator. The patient was noted to have blood-tinged secretions through his tracheostomy site for the last 48 hours. He was noted to have profuse bleeding yesterday, which was not stopping and hence was transferred to acute care hospital. He was evaluated and noted to have continued bleeding, but he was stable. The patient has been admitted to the intensive care unit and is awaiting a bronchoscopy. PAST MEDICAL HISTORY: Significant for history of chronic respiratory failure, on ventilator, tracheostomy in place. Hypertension, chronic atrial fibrillation, COPD, anxiety, benign prostatic hypertrophy and malnutrition, history of pneumothorax and pleural effusions. MEDICATIONS: He was currently on Lasix p.r.n., Tylenol p.r.n., DuoNeb nebulizer treatment, amiodarone 200 mg daily and hydrocodone p.r.n. SOCIAL HISTORY: The patient does not drink alcohol. REVIEW OF SYSTEMS: Not possible. PHYSICAL EXAMINATION: GENERAL: Elderly gentleman was resting in bed, did not appear to be in any distress. He was alert, oriented and responsive. VITAL SIGNS: He was afebrile, his pulse was 92-98, irregular. Blood pressure was 100/71. HEENT: There was mild pallor, no icterus. Mucosa was moist. NECK: The patient had a tracheostomy tube in place with being attached to the ventilator. LUNGS: Clear anteriorly. The patient had blood-tinged secretions from his tracheostomy. ABDOMEN: Soft, nontender, bowel sounds normally heard. The patient had a PEG tube in place. EXTREMITIES: Did not reveal any edema. NEUROLOGIC: The patient was moving all 4 extremities equally and normally. [address] [address] HISTORY AND PHYSICAL Name: JINNY BURT Room #: 247-P [facility] IN M.R.#: [id number] Admission: 08/14/17 Attend Phys: Maricarmen Mario Discharge: 08/24/17 Date of : 48 Report #: [id number] LABORATORY DATA: On admission showed a white cell count of 6.9, hemoglobin 8.4, hematocrit 26.1 and a platelet count of 282. PT was 10.8, with INR 1.1. Sodium was 137, potassium 4.8, chloride of 96, bicarbonate of 37, BUN 29, creatinine 1.1. Chest x-ray showed chronic lung changes, no consolidating infiltrate, pneumothorax or significant pleural effusion. ASSESSMENT: 1. Severe hemoptysis. 2. Chronic respiratory failure, on ventilator. 3. Chronic obstructive pulmonary disease. 4. Atrial fibrillation. PLAN: To admit him to the intensive care unit and have a bronchoscopy and continue his amiodarone for right now and continue with the ventilator. <ELECTRONICALLY SIGNED> By: Cory Collier MD 08/25/17 1236 0817 0924 Cory Collier MD /nt
--- NOTE | ~2017-08-14 | EKG ---
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
--- NOTE | ~2017-08-14 | HC ---
[facility] [place] [address] CONSULTATION Name: JINNY BURT Room #: 247-P ADM IN M.R.#: [id number] Admission: 08/14/17 Attend Phys: Maricarmen Mario Discharge: Date of : 48 Report #: [id number] THIS REPORT FOR: //name// CC: Susanna Crouch [facility] physician/PCP Erick Mosley DATE OF SERVICE: 08/15/2017 ATTENDING PHYSICIAN: Erick Mosley MD REASON FOR CONSULTATION: Possible use of antibiotic. HISTORY OF PRESENT ILLNESS: The patient is a 66-year-old man with chronic tracheostomy, residing at [facility] where he said to develop tracheal bleeding, may be having 1.2 liters of blood aspirated. At the time of transfer, the patient is alert, comfortable, afebrile with minimal bleeding per tracheostomy. PAST MEDICAL HISTORY: Chronic respiratory failure, tracheostomy, mechanical ventilator dependent. Hypertension. Atrial fibrillation. COPD. Previous urinary tract infection and urinary retention. Pneumothorax. DRUG ALLERGIES: None listed. CURRENT MEDICATIONS: Vancomycin 1250 mg IV every 12 hours, p.r.n. glucose, glucagon, fentanyl 50 mcg IV q.4 h. p.r.n., Atrovent and albuterol inhalation treatments, p.r.n. ondansetron, Zosyn was given 3.375 g IV single dose yesterday and subsequently appears not to be further dosed. REVIEW OF SYSTEMS: Unable to obtain. FAMILY HISTORY: Unable to obtain. SOCIAL HISTORY: Unable to obtain. PHYSICAL EXAMINATION: GENERAL: Well-developed man, alert, comfortable, suctioning oral secretions. VITAL SIGNS: Presenting temperature 98.5; pulse 94; respirations 20; BP 178/63, 101/72; O2 saturation 100% on FiO2 of 40%. HEENMT: Head normocephalic, atraumatic. Pupils reactive. Mouth: Carious, missing teeth, no thrush. NECK: Tracheostomy in place, minimal blood in the tracheal tubing and suctioning devices. LUNGS: Few rhonchi. [facility] [address] [place] [address] CONSULTATION Name: JINNY BURT Room #: 247-P ADM IN M.R.#: [id number] Admission: 08/14/17 Attend Phys: Maricarmen Mario Discharge: Date of : 48 Report #: [id number] HEART: S1, S2. ABDOMEN: Gastrostomy tube in place. GENITALIA AND RECTAL: Deferred. EXTREMITIES: No clubbing, cyanosis. NEUROLOGIC: Grossly within normal limits. LABORATORY DATA: Sodium 138, potassium 4.2, BUN 22, creatinine 1, glucose 131. Alkaline phosphatase 111, albumin 3 g/dL. NT-proBNP 515. WBC 6900, hemoglobin 8.4 g/dL, platelets 282,000. No white blood cell count differential today, but yesterday the white blood cell count differential revealed only 55% neutrophils, which possibly goes against acute septic event. The ABGs yesterday revealed pH 7.43, pCO2 of 47, pO2 of 89, bicarbonate 30, total CO2 of 31.9, lactate normal. This set of gases on tidal volume 500, 5 of PEEP and FiO2 of 40%. MICROBIOLOGY DATA: Blood cultures were obtained in afebrile patient; I suspect they will be negative. Nasopharyngeal swab was obtained for influenza A and B and those were negative. Sputum obtained in 05/2017 revealed Serratia marcescens, Stenotrophomonas maltophilia. The Stenotrophomonas sensitive to Levaquin and the Serratia marcescens also sensitive to Levaquin. RADIOLOGY EVALUATION: Chest x-ray: Tracheostomy, stable mediastinal configuration, chronic lung changes with scattered interstitial opacities bilaterally. No new or increasing consolidation or pulmonary infiltrates noted. Yesterday, a CT scan of chest PE protocol was obtained and it revealed no evidence of pulmonary embolism, bilateral lower lobe infiltrate, left greater on right, with severe emphysematous changes. The CT scan of the chest reviewed and note is made that the patient possibly has a large cyst on the left lung, which is partially fluid filled. ASSESSMENT: 1. Bleeding per tracheostomy, question etiology. 2. Chronic obstructive pulmonary disease with fibrocystic lung changes and possibly fluid-filled cyst, left lung. 3. Chronic respiratory failure with tracheostomy and mechanical ventilator dependence. SUGGESTIONS: Recommend continuing treatment with vancomycin and Levaquin. Dr. Mosely, thank you for requesting my suggestions in the care of your patient. <ELECTRONICALLY SIGNED> By: Dwain Dawn MD 08/16/17 0848 0721 1737 Dwain Dawn MD /nt
--- NOTE | ~2017-08-14 | P ---
[facility] [place] [address] PROCEDURE REPORT Name: JINNY BURT Room #: 247-P ADM IN M.R.#: [id number] Admission: 08/14/17 Attend Phys: Maricarmen Mario Discharge: Date of : 48 Report #: [id number] THIS REPORT FOR: //name// CC: Susanna Crouch [facility] physician/PCP Erick Mosley PROCEDURE: Fiberoptic bronchoscopy with wash. INDICATION: Hemoptysis. PREOPERATIVE DIAGNOSIS: Rule out endobronchial lesion. POSTOPERATIVE DIAGNOSIS: No endobronchial lesion. Minimal bleeding noted. No site found. COMPLICATIONS: Mild bleeding. MEDICATIONS: Include Versed 3 mg, fentanyl was used. DESCRIPTION OF PROCEDURE: The patient was informed of the risks and benefits including infection, bleeding, pneumothorax, and consented. Procedure was done in room 247. Bronchoscope was passed through the trach tube with ease. There was blood in airway, which was suctioned; however, main cj was sharp and no obvious bleeding site was noted. There may have been a little more blood on left than right, but not significant. No bleeding above trach site was noted or with coughing was any suctioning of blood done. The patient tolerated the procedure well with medications. <ELECTRONICALLY SIGNED> By: Susanna Thompson MD 08/16/17 1624 1604 0324 Susanna Thompson MD /nt
[~2017-08-14 20:31] MED LIST changes: +DEXTROSE 500.5 GM/ML IV PUSH
[2017-08-14 20:52] LABS: HEMATOCRIT 30.4 % (42.0-52.0); HEMOGLOBIN 9.7 gm/dL (14.0-18.0); MANUAL DIFF YES; MCH 26.9 pg (26.0-34.0); MCHC 31.9 g/dL (28.0-37.0); MCV 84.3 fL (80.0-100.0); PLATELET COUNT 322 thou/uL (150-400); RDW 20.1 % (10.5-14.5); WBC 6.3 thou/uL (4.0-11.0)
[2017-08-14 21:00] LABS: ANION GAP 4 mmol/L (7-16); BUN 29 mg/dL (7-18); CALCIUM 8.6 mg/dL (8.5-10.1); CHLORIDE 96 mmol/L (98-107); CO2 37 mmol/L (21-32); CREATININE 1.1 mg/dL (0.7-1.3); GLUCOSE 80 mg/dL (74-106); POTASSIUM 4.8 mmol/L (3.5-5.1); SODIUM 137 mmol/L (136-145)
[2017-08-14 21:07] LABS: APTT 22.7 Seconds (24.5-32.8); INR 1.1; PROTIME 10.8 Seconds (9.3-11.4)
[2017-08-14 21:08] LABS: ALKALINE PHOSPHATASE 111 U/L (46-116); SGOT 39 U/L (15-37); SGPT 38 U/L (30-65); TOTAL BILIRUBIN 0.5 mg/dL (<0.1-1.0); TOTAL PROTEIN 8.1 g/dL (6.4-8.2); TROPONIN-I < 0.04 ng/mL (<0.06)
[2017-08-14 21:09] LABS: ABSOLUTE NEUTROPHILS 3.5 thou/uL (1.4-8.2); ANISOCYTOSIS 1+; TOTAL CELL COUNT 100
[2017-08-14] MEDS ORDERED: MAPAP160 MG/51 PER TUBE (21:28)
[2017-08-14] MEDS ORDERED: BISACODYL SUPP10 MG RECTAL (21:29)
[2017-08-14 21:51] LABS: ABG SAMPLE TYPE ARTERIAL; BE(vivo) 5.5 mmol/L (-2 to +3); HCO3 30.5 mmol/L (22.0-26.0); O2(CT) 13.9 mL/dL (15.0-23.0); O2Hb 96.4 % (92.0-98.0); PO2 89.1 mmHg (80.0-100.0); STICK SITE R.RADIAL; sO2 96.9 % (92.0-98.0); tCO2 31.9 mmol/L (24.0-30.0)
[2017-08-14 21:52] LABS: ABG COMMENT A/C MODE; TIDAL VOLUME 500 ml
[2017-08-15] VITALS (72 sets, daily range): BP systolic 69–122; BP diastolic 13–92
[2017-08-15 04:54] LABS: HEMATOCRIT 26.1 % (42.0-52.0); HEMOGLOBIN 8.4 gm/dL (14.0-18.0); MCH 27.3 pg (26.0-34.0); MCHC 32.2 g/dL (28.0-37.0); MCV 84.6 fL (80.0-100.0); RBC 3.08 mil/uL (4.50-6.00); RDW 19.6 % (10.5-14.5); WBC 6.9 thou/uL (4.0-11.0)
[2017-08-15 05:02] LABS: CALCIUM 7.7 mg/dL (8.5-10.1); POTASSIUM 4.2 mmol/L (3.5-5.1)
[2017-08-15 11:24] LABS: HIV-1 P24 AG Nonreactive (Nonreactive)
[2017-08-16] VITALS (47 sets, daily range): BP systolic 82–189; BP diastolic 53–166
[2017-08-16 19:11] LABS: HBsAG-EMPLOYEE EXPOSURE Negative (Negative); HCV AB-EMPLOYEE EXPOSURE 0.1 (0.0-0.9)
[2017-08-17] VITALS (48 sets, daily range): BP systolic 90–128; BP diastolic 59–114
[2017-08-17 06:50] LABS: HEMATOCRIT 27.6 % (42.0-52.0); HEMOGLOBIN 8.6 gm/dL (14.0-18.0); MCH 26.9 pg (26.0-34.0); MCHC 31.2 g/dL (28.0-37.0); MCV 86.4 fL (80.0-100.0); RBC 3.2 mil/uL (4.50-6.00); RDW 19.9 % (10.5-14.5)
[2017-08-17 06:58] LABS: CALCIUM 7.7 mg/dL (8.5-10.1); CREATININE 0.7 mg/dL (0.7-1.3); POTASSIUM 4.5 mmol/L (3.5-5.1)
[2017-08-18] VITALS (60 sets, daily range): BP systolic 72–149; BP diastolic 50–105
[2017-08-18 04:34] LABS: HEMATOCRIT 25.7 % (42.0-52.0); HEMOGLOBIN 8.1 gm/dL (14.0-18.0); MCHC 31.5 g/dL (28.0-37.0); MCV 85.5 fL (80.0-100.0); RDW 19.9 % (10.5-14.5); WBC 5.1 thou/uL (4.0-11.0)
[2017-08-18 04:42] LABS: CREATININE 0.8 mg/dL (0.7-1.3); POTASSIUM 4.2 mmol/L (3.5-5.1)
[2017-08-19] VITALS (44 sets, daily range): BP systolic 80–126; BP diastolic 56–99
[2017-08-20] VITALS (41 sets, daily range): BP systolic 94–119; BP diastolic 55–79
[2017-08-20 05:43] LABS: HEMATOCRIT 25.1 % (42.0-52.0); HEMOGLOBIN 7.9 gm/dL (14.0-18.0); MCH 27.2 pg (26.0-34.0); MCHC 31.5 g/dL (28.0-37.0); MCV 86.3 fL (80.0-100.0); RBC 2.91 mil/uL (4.50-6.00); RDW 19.8 % (10.5-14.5); WBC 5.5 thou/uL (4.0-11.0)
[2017-08-20 05:53] LABS: CALCIUM 7.6 mg/dL (8.5-10.1); CREATININE 0.8 mg/dL (0.7-1.3); POTASSIUM 4.1 mmol/L (3.5-5.1)
[2017-08-21] VITALS (20 sets, daily range): BP systolic 93–138; BP diastolic 56–83
[2017-08-22] VITALS (44 sets, daily range): BP systolic 94–128; BP diastolic 62–97
[2017-08-22 04:42] LABS: HEMATOCRIT 25.9 % (42.0-52.0); HEMOGLOBIN 8.1 gm/dL (14.0-18.0); MCH 26.5 pg (26.0-34.0); MCHC 31.2 g/dL (28.0-37.0); RBC 3.05 mil/uL (4.50-6.00); RDW 19.8 % (10.5-14.5)
[2017-08-22 04:50] LABS: CREATININE 0.6 mg/dL (0.7-1.3); POTASSIUM 3.7 mmol/L (3.5-5.1)
[2017-08-22 06:50] LABS: ALBUMIN 2.1 g/dL (3.4-5.0); DIRECT BILIRUBIN 0.2 mg/dL (<0.1-0.3); TOTAL BILIRUBIN 0.5 mg/dL (<0.1-1.0)
[2017-08-23] VITALS (23 sets, daily range): BP systolic 84–123; BP diastolic 54–86
[2017-08-23 14:02] LABS: HEMATOCRIT 26.1 % (42.0-52.0); HEMOGLOBIN 8.2 gm/dL (14.0-18.0); MCH 27.1 pg (26.0-34.0); MCHC 31.6 g/dL (28.0-37.0); MCV 85.9 fL (80.0-100.0); RBC 3.04 mil/uL (4.50-6.00); RDW 19.9 % (10.5-14.5); WBC 4.7 thou/uL (4.0-11.0)
[2017-08-23 14:17] LABS: ALBUMIN 2.1 g/dL (3.4-5.0); CREATININE 0.7 mg/dL (0.7-1.3); POTASSIUM 3.9 mmol/L (3.5-5.1); TOTAL BILIRUBIN 0.4 mg/dL (<0.1-1.0); TOTAL PROTEIN 6.3 g/dL (6.4-8.2)
[2017-08-24] VITALS (12 sets, daily range): BP systolic 87–112; BP diastolic 56–83
[2017-08-24] MEDS ORDERED: LACTULOSE20 GM/30 M PER TUBE (09:57)
[2017-08-24] MEDS ORDERED: HYDROCODON-ACE1 EAC7 PO (09:57)
[2017-08-24] MEDS ORDERED: FAMOTIDINE40 MG/5 ML PER TUBE (09:57)
[2017-08-24] MEDS ORDERED: MAXIPIME 1 GM/D51 G1 IV (09:58)
== END 2017-08-24 11:50 | DRG 163 ==
LOC: ER 20:31 → ICU 21:40 → EROBS 21:40 → ICU 22:22
PROVIDERS: Emergency Medicine; Internal Medicine Geriatric Medicine; Internal Medicine Pulmonary Disease; Otolaryngology; Specialist
PROC: 5A1955Z Respiratory Ventilation, Greater than 96 Consecutive Hours (ICD-10-PCS; principal; 2017-08-14)
PROC: 0BW18FZ Revision of Tracheostomy Device in Trachea, Via Natural or Artificial Opening Endoscopic (ICD-10-PCS; 2017-08-18)
PROC: 0BJ08ZZ Inspection of Tracheobronchial Tree, Via Natural or Artificial Opening Endoscopic (ICD-10-PCS; 2017-08-19)
PROC: 0B21XFZ Change Tracheostomy Device in Trachea, External Approach (ICD-10-PCS; 2017-08-20)
PROC: 0W3Q0ZZ Control Bleeding in Respiratory Tract, Open Approach (ICD-10-PCS; 2017-08-20)
DX: J95.01 Hemorrhage from tracheostomy stoma (principal); J96.21 Acute and chronic respiratory failure with hypoxia; J96.22 Acute and chronic respiratory failure with hypercapnia; E43 Unspecified severe protein-calorie malnutrition; R04.2 Hemoptysis; J90 Pleural effusion, not elsewhere classified; Z99.11 Dependence on respirator [ventilator] status; Z68.1 Body mass index [BMI] 19.9 or less, adult; R04.89 Hemorrhage from other sites in respiratory passages; N40.0 Benign prostatic hyperplasia without lower urinary tract symptoms; I10 Essential (primary) hypertension; J44.9 Chronic obstructive pulmonary disease, unspecified; K59.00 Constipation, unspecified; F41.9 Anxiety disorder, unspecified; J39.8 Other specified diseases of upper respiratory tract; D18.09 Hemangioma of other sites; D63.8 Anemia in other chronic diseases classified elsewhere; I48.2 Chronic atrial fibrillation; I27.20 Pulmonary hypertension, unspecified; R14.0 Abdominal distension (gaseous); Z79.899 Other long term (current) drug therapy; Y83.8 Other surgical procedures as the cause of abnormal reaction of the patient, or of later complication, without mention of misadventure at the time of the procedure; Y92.89 Other specified places as the place of occurrence of the external cause
CPT/HCPCS: 10078; 50101; 50386; 50398; 50517; 56525; 56526; 56639; 62110; 62900; 83006

== ENCOUNTER 2017-10-20 15:12 | Inpatient (IN) | payer OTHER ==
[~2017-10-20] VITALS: Ht 190.5 cm; Wt 61.3 kg
--- NOTE | ~2017-10-20 | HC ---
[facility] [place] [address] CONSULTATION Name: JINNY BURT Elly Room #: 352-P ADM IN M.R.#: [id number] Admission: 10/20/17 Attend Phys: Maricarmen Mario Discharge: Date of : 48 Report #: [id number] THIS REPORT FOR: //name// CC: Clayton Crouch DATE OF SERVICE: 10/21/2017 HISTORY OF PRESENT ILLNESS: The patient is a 67-year-old who is ventilator dependent. He came in with abdominal pain and distention. The patient apparently has not had any stool for 2 days. He was brought to the emergency room. He is residing at [facility]. The patient has COPD, respiratory failure, has a trach and a PEG in. His CT scan shows multiple dilated loops of small-bowel seen throughout the abdomen measuring up to 3.6 cm. No definite transition identified. He has gaseous distention also of the proximal colon. The findings are felt to be more ileus. His white count is 5.7. The patient is able to communicate with moving his lips. He said that he did have pain when he came in, but today he said he is not having any pain. PHYSICAL EXAMINATION: The patient is quite thin and his bowel loops are even palpable and visible through the abdomen. There is a PEG tube in place. I do not see any scar to suggest any abdominal surgeries. He has voluntary guarding and difficult to relax his abdomen. A few bowel sounds are present. I do not think there is any rigidity or rebound. IMPRESSION: The patient is a 67-year-old with abdominal distention. He has not had any surgery before. It is difficult to tell if this is a bowel obstruction or profound ileus. I am not sure the reason for his ileus. The patient does not appear to be toxic. I do not think he has a bowel compromise. CT was reviewed. RECOMMENDATION: The distention does need to be reduced. There is currently ordered for his PEG tube to be put on suction. I did speak with the nurse regarding this. We will add Reglan at this point and then try suppository to see if get him to pass gas. Because of the patient's bad pulmonary status, he is not a very good surgical candidate. Hopefully, this will decompress and start working on it is own. <ELECTRONICALLY SIGNED> By: Merlin Burnett MD 10/28/17 1439 1041 1103 Merlin Burnett MD /nt
--- NOTE | ~2017-10-20 | HC ---
[facility] [place] [address] CONSULTATION Name: JINNY BURT Elly Room #: 352-P [facility] IN M.R.#: [id number] Admission: 10/20/17 Attend Phys: Maricarmen Mario Discharge: Date of : 48 Report #: [id number] THIS REPORT FOR: //name// CC: Clayton Crouch DATE OF SERVICE: 10/21/2017 TYPE OF CONSULTATION: Pulmonary. PRIMARY CARE PHYSICIAN: Thaddeus Crouch MD REASON FOR REFERRAL: Chronic mechanical ventilator management. HISTORY OF PRESENT ILLNESS: The patient is a 67-year-old -Serbian male who was brought to the Emergency Room with abdominal distention and pain. He is felt to have small-bowel obstruction. The patient is also on chronic mechanical ventilation. A pulmonary consultation was requested. The patient has known COPD. He was hospitalized at [facility] in January 2017 when he was found to be unresponsive. He was treated for presumed aspiration pneumonia. He was felt to have right-sided pneumonia along with parapneumonic effusion. He is also felt to have bullous emphysema. He was not able to wean from mechanical ventilation and subsequently had tracheostomy and PEG tube placed and transferred to [facility]. He was not able to be weaned and he was subsequently transferred to [facility] for ongoing care. He was last hospitalized here in July 2017 for hemoptysis. He was doing fairly well until 2 days prior to presentation, the patient started to develop bowel distention along with abdominal pain. CT of abdomen and pelvis noted showing bowel distention along with possible bowel obstruction. Presently, he is awake, alert, in no apparent distress. He is tolerating the mechanical ventilation. 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 Should also include benign prostatic hypertrophy, hypertension, atrial fibrillation, anxiety disorder, urinary retention, malnutrition. PAST SURGICAL HISTORY: As mentioned above. [facility] [address] [place] [address] CONSULTATION Name: JINNY BURT Elly Room #: 352-P [facility] IN ..#: [id number] Admission: 10/20/17 Attend Phys: Maricarmen Mario Discharge: Date of : 48 Report #: [id number] ALLERGIES: None noted. MEDICATIONS: From the facility include Dulcolax, DuoNebs, amiodarone, Lasix. He was recently on cefepime, Pepcid, and hydrocodone. FAMILY HISTORY: Unknown. SOCIAL HISTORY: The patient has smoked in the past. No history of alcohol use. REVIEW OF SYSTEMS: Deferred as the patient has a tracheostomy. PHYSICAL EXAMINATION: GENERAL: He is awake and alert, who does not appear to be in distress. VITAL SIGNS: Temperature is 98 degrees Fahrenheit, pulse is 99, respiratory rate is 20, blood pressure is 99/67 mmHg, saturation 100%. HEENT: Normocephalic and atraumatic. NECK: Supple without lymphadenopathy or thyromegaly. CHEST: Breath sounds are clear bilaterally without any rales or wheezes. CARDIOVASCULAR: Normal S1, S2. There are no murmurs or gallop. There is no JVD, no carotid bruit. Pulses are 2+/4+ bilaterally. ABDOMEN: Mildly distended, mildly tender. No rebound tenderness, no masses felt. GENITOURINARY AND RECTAL: Deferred. EXTREMITIES: There is no edema, cyanosis or clubbing. LABORATORY DATA: Portable chest x-ray is pending. CT abdomen and pelvis revealed multiple mildly dilated loops of small bowel seen throughout. Focal loculated fluid seen in the left hemidiaphragm measuring 5.9 x 2.7 cm in diameter. Mild consolidations seen in the right lower lobe. KUB shows similar generalized gaseous distention of the bowel throughout. Electrolytes are normal except for creatinine of 1.3. WBC is 5700, hemoglobin is normal at 12.5. There is no bandemia. IMPRESSION: 1. Abdominal distention, pain, likely related to ileus. Deferred to primary care and GI service. 2. Chronic respiratory failure, felt to be ventilator dependent, due to chronic obstructive pulmonary disease/emphysema. 3. Remote pneumonia with parapneumonic effusion. 4. Mild right lower lobe infiltrate, possible pneumonia. I think it is reasonable to treat for presumed nosocomial infections including aspiration. 5. Malnutrition, albumin level will be helpful. 6. Status post tracheostomy and percutaneous endoscopic gastrostomy tube. The patient has had trouble with trach cuff leak along with bleeding recently. 7. Paroxysmal atrial fibrillation. [address] [place] [address] CONSULTATION Name: JINNY BURT Room #: 352-P [facility] IN M.R.#: [id number] Admission: 10/20/17 Attend Phys: Maricarmen Mario Discharge: Date of : 48 Report #: [id number] 8. Benign cyst involving the pancreas and liver. 9. Benign prostatic hypertrophy. 10. Hypertension. RECOMMENDATIONS: We will continue mechanical ventilation, wean for saturation 90%. Given the malnutrition, we will consider increasing caloric intake. We will defer ileus management to primary care and GI consultants. DVT and GI prophylaxis will be addressed. In terms of his infiltrates, I think it is reasonable to treat for possible pneumonia. No further workup is necessary for his loculated effusion given his past history of pneumonia and parapneumonic effusions this past year. In terms of inability, it is presumed the patient has been difficult to wean. We will continue mechanical ventilation for now until the patient's nutritional status has medically improved. Then, we will reconsider whether the patient could be weaned, at least partially perhaps during the days and on mechanical ventilation at nights. Thank you for this consultation. <ELECTRONICALLY SIGNED> By: Lucio Vital MD 10/23/17 1737 1643 0808 Lucio Vital MD /nt
--- NOTE | ~2017-10-20 | H ---
[facility] [place] [address] HISTORY AND PHYSICAL Name: JINNY BURT Room #: 352-P ADM IN M.R.#: [id number] Admission: 10/20/17 Attend Phys: Maricarmen Mario Discharge: Date of : 48 Report #: [id number] THIS REPORT FOR: //name// CC: Clayton Crouch DATE OF SERVICE: 10/20/2017 CHIEF COMPLAINT: Abdominal pain. HISTORY OF PRESENT ILLNESS: The patient is a 67-year-old gentleman from [facility] facility sent to the Emergency Room with nausea, vomiting, abdominal pain. The staff reported that he has not had a bowel movement for a day or two and has developed bowel obstruction. They noted his abdomen to be distended and firm. He was rating pain about 9/10. He does have chronic respiratory failure, ventilator dependence related to COPD. He had an extensive hospital stay recently for hemoptysis which required a revision replacement of his trach and ablation of an exposed tracheal ulcer that was bleeding. PAST MEDICAL HISTORY: COPD and emphysema. History of pleural effusions, history of pneumothorax, chronic ventilator dependent with tracheostomy tube, recent bleeding tracheal ulcer, paroxysmal atrial fibrillation. There is a report of cystic disease of the pancreas as previously seen on CT of the liver. PAST SURGICAL HISTORY: Unknown. FAMILY HISTORY: Unknown. SOCIAL HISTORY: Unknown chronic alcohol or tobacco use. ALLERGIES: None. MEDICATIONS: Lactulose, Pepcid, hydrocodone, Dulcolax, DuoNeb, amiodarone, Lasix. REVIEW OF SYSTEMS: Other than abdominal pain, denies headache, chest pain, shortness of breath, myalgias, arthralgias. OBJECTIVE: VITAL SIGNS: Temperature 36.7, pulse 99, respirations 16, blood pressure 84/61, O2 sat 99% on the ventilator. GENERAL: He is awake and alert, in no distress. HEAD AND NECK: Shows trach in place, no bleeding. LUNGS: Clear. HEART: Regular. ABDOMEN: Protuberant, firm, hypoactive bowel sounds. No rebound, guarding. PEG tube in place. [address] [address] HISTORY AND PHYSICAL Name: JINNY BURT Room #: 352-P [facility] IN M.R.#: [id number] Admission: 10/20/17 Attend Phys: Maricarmen Mario Discharge: Date of : 48 Report #: [id number] EXTREMITIES: No cyanosis, clubbing or edema. NEUROLOGIC: Moves all extremities, global strength about 3/5. LABORATORY DATA: CT of the abdomen was reviewed. ASSESSMENT: 1. Small-bowel obstruction. 2. Chronic obstructive pulmonary disease. 3. Chronic ventilator dependence. 4. Chronic hypoxic respiratory failure. PLAN: Keep him n.p.o. and place a PEG tube to suction. I will ask Dr. Burnett to assess, but this may be a wait and see approach to treat his bowel symptoms. Pulmonary to help manage the ventilator while he is here. <ELECTRONICALLY SIGNED> By: Devonte Awad MD 10/21/17 1108 1015 1041 Devonte Awad MD /nt
[~2017-10-20 15:12] MED LIST changes: +BISACODYL SUPP10 MG RECTAL; +FAMOTIDINE40 MG/5 ML PER TUBE; +LACTULOSE20 GM/30 M PER TUBE; +MAPAP160 MG/51 PO; +MAXIPIME 1 GM/D51 G1 IV; -PACERONE 200 M200 M1 PER TUBE; +PACERONE 200 M200 M1 PO
[2017-10-20 15:13] VITALS: BP 113/84
[2017-10-20 17:18] LABS: HEMATOCRIT 38.7 % (42.0-52.0); HEMOGLOBIN 12.5 gm/dL (14.0-18.0); MCH 28.1 pg (26.0-34.0); MCHC 32.4 g/dL (28.0-37.0); MCV 86.6 fL (80.0-100.0); PLATELET COUNT 379 thou/uL (150-400); RBC 4.46 mil/uL (4.50-6.00); RDW 14.7 % (10.5-14.5); WBC 5.7 thou/uL (4.0-11.0)
[2017-10-20 17:35] LABS: ICTOTEST (BILI CONFIRMATORY) Negative (Negative); URINE BILIRUBIN NEGATIVE (Negative); URINE BLOOD 1+ (Negative); URINE CLARITY CLEAR; URINE COLOR YELLOW; URINE GLUCOSE-RANDOM* NEGATIVE (Negative); URINE KETONES TRACE (Negative); URINE LEUKOCYTES-REFLEX NEGATIVE (Negative); URINE NITRITE-REFLEX NEGATIVE (Negative); URINE PROTEIN (DIPSTICK) 1+ (Negative); URINE SPECIFIC GRAVITY >= 1.030 (1.005-1.035); URINE UROBILINOGEN 0.2 E.U./dl (0.2-1.0)
[2017-10-20 17:38] LABS: CALCIUM 9.5 mg/dL (8.5-10.1); CREATININE 1.3 mg/dL (0.7-1.3); POTASSIUM 4.7 mmol/L (3.5-5.1)
[2017-10-20 17:41] LABS: ABSOLUTE NEUTROPHILS 3.8 thou/uL (1.4-8.2); ANISOCYTOSIS 1+; BURR CELLS FEW
[2017-10-20 17:42] LABS: MICROCYTES 1+
[2017-10-20 17:49] LABS: AMORPHOUS URATES Moderate /LPF (None Seen); HYALINE CASTS >10 Many /LPF (None Seen); MUCUS 0-3 Light strn/LPF (None Seen); SQUAMOUS 4-10 Moderate /LPF (0-3); URINE RBC 3-10 Few /HPF (0-2); URINE WBC-REFLEX 6-15 Few /HPF (0-5)
[2017-10-20] MEDS ORDERED: LASIX 20 MG TAB20 MG PER TUBE (19:21)
[2017-10-20 21:08] VITALS: BP 94/59
[2017-10-20 21:30] VITALS: BP 128/94
[2017-10-20 23:30] VITALS: BP 95/67
[2017-10-21 06:13] VITALS: BP 99/67
[2017-10-21 08:57] VITALS: BP 84/61
[2017-10-21 19:32] VITALS: BP 96/62
[2017-10-22 04:42] VITALS: BP 86/54
[2017-10-22 07:10] LABS: BE(vivo) 3.7 mmol/L (-2 to +3); HCO3 28.3 mmol/L (22.0-26.0); PCO2 42.8 mmHg (35.0-45.0); PO2 84.3 mmHg (80.0-100.0); pH 7.438 (7.360-7.450); sO2 96.6 % (92.0-98.0)
[2017-10-22 07:50] VITALS: BP 86/51
[2017-10-22 08:22] LABS: HEMATOCRIT 29.3 % (42.0-52.0); MCH 28.3 pg (26.0-34.0); MCHC 32.6 g/dL (28.0-37.0); MCV 86.8 fL (80.0-100.0); RBC 3.38 mil/uL (4.50-6.00); RDW 14.5 % (10.5-14.5); WBC 3.8 thou/uL (4.0-11.0)
[2017-10-22 08:24] LABS: HEMOGLOBIN 9.6 gm/dL (14.0-18.0)
[2017-10-22 08:41] LABS: ALBUMIN 2.6 g/dL (3.4-5.0); CREATININE 1.1 mg/dL (0.7-1.3); POTASSIUM 3.8 mmol/L (3.5-5.1); TOTAL BILIRUBIN 0.4 mg/dL (<0.1-1.0); TOTAL PROTEIN 6.6 g/dL (6.4-8.2)
[2017-10-22 12:31] VITALS: BP 93/54
[2017-10-22 16:13] VITALS: BP 93/54
[2017-10-22 18:37] LABS: URINE BILIRUBIN NEGATIVE (Negative); URINE BLOOD 3+ (Negative); URINE CLARITY CLEAR; URINE COLOR YELLOW; URINE GLUCOSE-RANDOM* NEGATIVE (Negative); URINE KETONES NEGATIVE (Negative); URINE LEUKOCYTES-REFLEX 2+ (Negative); URINE NITRITE-REFLEX NEGATIVE (Negative); URINE PROTEIN (DIPSTICK) 1+ (Negative); URINE UROBILINOGEN 0.2 E.U./dl (0.2-1.0)
[2017-10-22 18:43] LABS: CASTS None Seen /LPF (None Seen); CRYSTALS None Seen /LPF (None Seen); SQUAMOUS None Seen /LPF (0-3); URINE RBC >20 Many /HPF (0-2); URINE WBC-REFLEX >25 Many /HPF (0-5)
[2017-10-22 19:13] VITALS: BP 96/56
[2017-10-23 03:47] VITALS: BP 95/58
[2017-10-23 06:10] LABS: HEMATOCRIT 29.4 % (42.0-52.0); HEMOGLOBIN 9.7 gm/dL (14.0-18.0); MCH 28.6 pg (26.0-34.0); MCV 86.7 fL (80.0-100.0); RBC 3.39 mil/uL (4.50-6.00); RDW 14.5 % (10.5-14.5); WBC 4.7 thou/uL (4.0-11.0)
[2017-10-23 06:15] LABS: CALCIUM 7.8 mg/dL (8.5-10.1); CREATININE 0.9 mg/dL (0.7-1.3); POTASSIUM 3.4 mmol/L (3.5-5.1)
[2017-10-23 08:17] VITALS: BP 90/60
[2017-10-23 11:20] VITALS: BP 100/60
[2017-10-23 15:31] VITALS: BP 102/63
[2017-10-23 19:30] VITALS: BP 94/60
[2017-10-24 04:15] VITALS: BP 85/52
[2017-10-24 06:01] LABS: HEMATOCRIT 27.8 % (42.0-52.0); MCH 28.2 pg (26.0-34.0); MCHC 32.5 g/dL (28.0-37.0); RBC 3.2 mil/uL (4.50-6.00); WBC 4.9 thou/uL (4.0-11.0)
[2017-10-24 06:24] LABS: CALCIUM 7.3 mg/dL (8.5-10.1); CREATININE 0.8 mg/dL (0.7-1.3); POTASSIUM 3.5 mmol/L (3.5-5.1)
[2017-10-24 07:39] VITALS: BP 87/58
[2017-10-24 11:17] VITALS: BP 94/57
[2017-10-24 15:09] VITALS: BP 83/54
[2017-10-24 20:00] VITALS: BP 97/65
[2017-10-25 04:00] VITALS: BP 91/66
[2017-10-25 06:55] LABS: HEMATOCRIT 28.5 % (42.0-52.0); HEMOGLOBIN 9.2 gm/dL (14.0-18.0); MCH 28.1 pg (26.0-34.0); MCHC 32.3 g/dL (28.0-37.0); RBC 3.27 mil/uL (4.50-6.00); RDW 14.3 % (10.5-14.5); WBC 5.4 thou/uL (4.0-11.0)
[2017-10-25 07:03] LABS: CALCIUM 7.3 mg/dL (8.5-10.1); CREATININE 0.9 mg/dL (0.7-1.3); POTASSIUM 3.5 mmol/L (3.5-5.1)
[2017-10-25 07:23] VITALS: BP 98/56
[2017-10-25 11:19] VITALS: BP 92/66
[2017-10-25 15:20] VITALS: BP 110/78
[2017-10-25 19:09] VITALS: BP 110/69
[2017-10-26 03:48] VITALS: BP 97/61
[2017-10-26 07:35] VITALS: BP 108/65
[2017-10-26 12:00] VITALS: BP 110/68
[2017-10-26 17:29] VITALS: BP 94/56
[2017-10-26 19:34] VITALS: BP 97/52
[2017-10-27 04:10] VITALS: BP 119/74
[2017-10-27 06:14] LABS: HEMATOCRIT 30.6 % (42.0-52.0); HEMOGLOBIN 10.1 gm/dL (14.0-18.0); MCH 28.8 pg (26.0-34.0); MCHC 32.9 g/dL (28.0-37.0); MCV 87.3 fL (80.0-100.0); RBC 3.51 mil/uL (4.50-6.00); RDW 13.8 % (10.5-14.5)
[2017-10-27 06:28] LABS: CALCIUM 7.4 mg/dL (8.5-10.1); CREATININE 0.8 mg/dL (0.7-1.3); POTASSIUM 3.8 mmol/L (3.5-5.1)
[2017-10-27 07:47] VITALS: BP 111/68
[2017-10-27 15:05] VITALS: BP 128/85
[2017-10-27 19:40] VITALS: BP 104/69
[2017-10-28 03:55] VITALS: BP 146/88
[2017-10-28 07:17] VITALS: BP 114/71
[2017-10-28 11:05] VITALS: BP 165/112
[2017-10-28 19:50] VITALS: BP 90/54
[2017-10-29 04:07] VITALS: BP 92/54
[2017-10-29 08:06] VITALS: BP 86/54
[2017-10-29] MEDS ORDERED: ERYPED 400400 MG/5 M PER TUBE (09:45)
[2017-10-29] MEDS ORDERED: ZOSYN 3.3753.375 GM IV (09:45)
[2017-10-29] MEDS ORDERED: OXYCODONE20 MG/1 ML SUBLING (09:46)
[2017-10-29] MEDS ORDERED: METOCLOPRA10 MG/101 PER TUBE (09:46)
[2017-10-29 11:33] VITALS: BP 92/54
== END 2017-10-29 14:45 | DRG 388 ==
LOC: ER 15:12 → EROBS 18:58 → 3W 18:58
PROVIDERS: Emergency Medicine; Internal Medicine Geriatric Medicine; Internal Medicine Pulmonary Disease
PROC: 5A1955Z Respiratory Ventilation, Greater than 96 Consecutive Hours (ICD-10-PCS; principal; 2017-10-20)
PROC: 0DH63UZ Insertion of Feeding Device into Stomach, Percutaneous Approach (ICD-10-PCS; 2017-10-25)
DX: K56.7 Ileus, unspecified (principal); J96.21 Acute and chronic respiratory failure with hypoxia; E43 Unspecified severe protein-calorie malnutrition; J18.9 Pneumonia, unspecified organism; K86.2 Cyst of pancreas; Z99.11 Dependence on respirator [ventilator] status; Z68.1 Body mass index [BMI] 19.9 or less, adult; J44.0 Chronic obstructive pulmonary disease with (acute) lower respiratory infection; K56.609 Unspecified intestinal obstruction, unspecified as to partial versus complete obstruction; N40.0 Benign prostatic hyperplasia without lower urinary tract symptoms; I10 Essential (primary) hypertension; F41.9 Anxiety disorder, unspecified; I48.0 Paroxysmal atrial fibrillation; R14.0 Abdominal distension (gaseous); K76.89 Other specified diseases of liver; Z79.899 Other long term (current) drug therapy; Z93.0 Tracheostomy status; Z87.891 Personal history of nicotine dependence
CPT/HCPCS: 10879

== ENCOUNTER 2017-11-20 21:52 | Emergency (ER) | payer OTHER ==
[~2017-11-20] VITALS: Ht 188 cm; Wt 63.5 kg
--- NOTE | ~2017-11-20 | EKG ---
[place] [address] [facility] [place] [address] ELECTROCARDIOGRAM REPORT Name: CARMELJINNY L [id number] Admission: 11/20/17 Attend Phys: Discharge: 11/21/17 Date of : 48 Report #: [id number] THIS REPORT FOR: //name// [facility] ED Test Date: 2017-11-20 Test Time: 22:48:39 Pat Name: JINNY BURT Department: Room: Gender: Title Investigator: ROBE : 1950 Requested By: Rut Oliva Order Number: [id number] MD: Fausto Royal Measurements Intervals [place] Rate: 106 P: GA: QRS: 9 QRSD: 106 T: 257 QT: 341 QTc: 453 Interpretive Statements Atrial flutter with variable AV conduction Anterior infarct, old Nonspecific T abnormalities No previous ECGs available for comparison Electronically Signed On 11-22-2017 8:34:31 LOAN SERVICING REPRESENTATIVE by Fausto Royal [email or web address] <ELECTRONICALLY SIGNED> By: Fausto Royal MD, [facility] 11/22/17 0834 2248 2248 Fausto Royal MD, FACC /EPI
--- NOTE | ~2017-11-20 | EKG ---
[place] [address] [facility] [place] [address] ELECTROCARDIOGRAM REPORT Name: CARMEL,JINNY L [id number] Admission: 11/20/17 Attend Phys: Discharge: 11/21/17 Date of : 48 Report #: [id number] THIS REPORT FOR: //name// [facility] ED Test Date: 2017-11-20 Test Time: 22:39:54 Pat Name: JINNY BURT Department: Room: Gender: Roller: ROBE : 1950 Requested By: Rut Oliva Order Number: [id number] MD: Palmer Dawn Measurements Intervals [place] Rate: 143 P: [place]: QRS: 261 QRSD: 168 T: 176 QT: 347 QTc: 535 Interpretive Statements Poor quality data, interpretation may be affected Undetermined rhythm due to artifact, possible afib. Electronically Signed On 11-21-2017 10:24:27 SCREEN ROOM OPERATOR by Palmer Dawn [email or web address] <ELECTRONICALLY SIGNED> By: Palmer Dawn MD 11/21/17 1024 2239 2239 Palmer Dawn MD /TOM
[~2017-11-20 21:52] MED LIST changes: +ERYPED 400400 MG/5 M PER TUBE; +LASIX 20 MG TAB20 MG PER TUBE; +METOCLOPRA10 MG/101 PER TUBE; +OXYCODONE20 MG/1 ML SUBLING
[2017-11-20 22:09] LABS: HCO3 32.1 mmol/L (22.0-26.0); PCO2 47.8 mmHg (35.0-45.0); PO2 85.4 mmHg (80.0-100.0); pH 7.445 (7.360-7.450); sO2 96.7 % (92.0-98.0)
[2017-11-20 23:25] LABS: HEMATOCRIT 36.2 % (42.0-52.0); HEMOGLOBIN 11.8 gm/dL (14.0-18.0); MCH 28.1 pg (26.0-34.0); MCHC 32.5 g/dL (28.0-37.0); MCV 86.4 fL (80.0-100.0); PLATELET COUNT 326 thou/uL (150-400); RBC 4.19 mil/uL (4.50-6.00); RDW 14.9 % (10.5-14.5); WBC 5.9 thou/uL (4.0-11.0)
[2017-11-20 23:40] LABS: ANION GAP 1 mmol/L (7-16); BUN 30 mg/dL (7-18); CALCIUM 8.5 mg/dL (8.5-10.1); CHLORIDE 91 mmol/L (98-107); CO2 36 mmol/L (21-32); CREATININE 0.9 mg/dL (0.7-1.3); GLUCOSE 62 mg/dL (74-106); POTASSIUM 5.1 mmol/L (3.5-5.1); SODIUM 128 mmol/L (136-145)
[2017-11-20 23:51] LABS: DIRECT BILIRUBIN 0.2 mg/dL (<0.1-0.3); LIPASE 142 U/L (73-393); SGOT 52 U/L (15-37); SGPT 60 U/L (30-65); TOTAL BILIRUBIN 0.5 mg/dL (<0.1-1.0); TROPONIN-I < 0.04 ng/mL (<0.06)
[2017-11-21 00:34] LABS: ABSOLUTE NEUTROPHILS 4.4 thou/uL (1.4-8.2)
[2017-11-21 00:35] LABS: LARGE PLATELETS FEW
[2017-11-21 02:50] VITALS: BP 110/72
== END 2017-11-21 02:50 | disposition home or self-care (01) ==
LOC: ER 21:52
PROVIDERS: Emergency Medicine
DX: J96.11 Chronic respiratory failure with hypoxia (principal); Z99.11 Dependence on respirator [ventilator] status; N40.0 Benign prostatic hyperplasia without lower urinary tract symptoms; I10 Essential (primary) hypertension; J44.9 Chronic obstructive pulmonary disease, unspecified; I48.91 Unspecified atrial fibrillation; F41.9 Anxiety disorder, unspecified

== ENCOUNTER 2017-12-20 15:35 | Inpatient (IN) | payer OTHER, MEDICAID ==
[~2017-12-20] VITALS: Ht 188 cm; Wt 72.0 kg
--- NOTE | ~2017-12-20 | EKG ---
[address] [employer] [address] ELECTROCARDIOGRAM REPORT Name: JINNY BURT Room #: 351-P ADM IN M.R.#: [id number] Admission: 12/20/17 Attend Phys: Cory Collier MD Discharge: Date of : 48 Report #: [id number] THIS REPORT FOR: //name// [facility] ED Test Date: 2017-12-20 Test Time: 16:22:20 Pat Name: JINNY BURT Department: Room: [employer] Gender: M Camp Director: LJ : 1950 Requested By: Odilon Bess Order Number: [id number] MD: Fausto Royal Measurements Intervals [place] Rate: 96 P: CT: QRS: -35 QRSD: 139 T: 266 QT: 440 QTc: 557 Interpretive Statements Atrial flutter Septal infarct, old Compared to ECG 11/20/2017 22:48:39 No significant change was found Electronically Signed On 12-21-2017 9:46:53 CDT by Fausto Royal [email or web address] <ELECTRONICALLY SIGNED> By: Fausto Royal MD, [facility] 12/21/17 0946 162 21 Fausto Royal MD, [facility] /EPI
--- NOTE | ~2017-12-20 | P ---
[facility] [place] [address] PROCEDURE REPORT Name: JINNY BURT Room #: 351-P [facility] IN M.R.#: [id number] Admission: 12/20/17 Attend Phys: Cory Collier MD Discharge: Date of : 48 Report #: [id number] THIS REPORT FOR: //name// CC: Clayton Collier DATE OF SERVICE: 12/21/2017 PROCEDURE: Bronchoscopy. REASON FOR BRONCHOSCOPY: Hemoptysis, pulmonary infiltrates. PROCEDURE NOTATION: After discussing risks, benefits of planned procedure with the patient, he desired to proceed. After obtaining informed consent, he was brought to laborer brooder farm 3. He was placed on continuous cardiopulmonary monitoring and supplemental oxygen via nasal cannula at 3 liters. The patient had a 7.0 [place] tight shaft tracheostomy in place. Once brought back to the procedure table, the patient received 4% lidocaine nebulized to anesthetize the upper respiratory tract. Once accomplished, he received conscious sedation. Total of 3 mg of Versed were titrated during the procedure to provide adequate sedation. Once accomplished, bronchoscope was passed through the tracheostomy until distal trachea was seen. Some thick clotted blood was noted predominantly in the right lower lung, but no fresh blood noted. No active oozing was noted. 1% lidocaine was instilled on the trachea to provide topical anesthesia. The airways were then surveyed. FINDINGS: Mainstem, lobar, segmental and subsegmental bronchi were explored and appeared patent once the airways were purged of old blood. Some thick purulent secretions were noted in the right lower lobe. Most of the findings were noted on the right side; however, diffuse old blood was noted throughout. No active oozing was noted at the end of procedure. A lavage was performed in the right lower lobe at the end with some slightly cloudy, blood tinged return with mucus plugs noted. Airways were patent post-procedure with no obvious bleeding. IMPRESSION: 1. Hemoptysis, suspect from tracheal source above level that could be seen through his tracheostomy tube. 2. Pneumonia, likely aspiration and/or other healthcare-associated pneumonia. [facility] [address] [place] [address] PROCEDURE REPORT Name: JINNY BURT Room #: 351-P [facility] IN .R.#: [id number] Admission: 12/20/17 Attend Phys: Cory Collier MD Discharge: Date of : 48 Report #: [id number] SUGGESTION: Await cultures. ENT consultation, followup chest x-ray, airway clearance, change to humidified tracheal air and/or oxygen for now. By: 1044 1234 Abdiel Concepcion MD /nt
--- NOTE | ~2017-12-20 | HC ---
[facility] [place] [address] CONSULTATION Name: JINNY BURT Room #: 351-P [facility] IN M.R.#: [id number] Admission: 12/20/17 Attend Phys: oCry Collier MD Discharge: Date of : 48 Report #: [id number] THIS REPORT FOR: //name// CC: Clayton Collier DATE OF SERVICE: 12/21/2017 REASON FOR CONSULTATION: I was asked to evaluate concerning healthcare-associated pneumonia with chronic tracheostomy and ventilatory requirement. HISTORY OF PRESENT ILLNESS: The patient is a 67-year-old with chronic tracheostomy and ventilatory support, who resides at [facility]. He had been recently weaned from the ventilator and has his trach capped and presented with increased shortness of breath, hemoptysis. He has had a previous history of tracheal ulcer. No fever, chills or sweats. Bloody hemoptysis was also noted. He underwent bronchoscopy and ENT evaluation. Remains on broad antibiotic coverage. ALLERGIES: None. MEDICATIONS: As noted on his MAR, which were reviewed. PAST MEDICAL HISTORY: COPD, loculated pleural effusion, pneumothorax, tracheal ulcer, paroxysmal atrial fibrillation, cystic lesion on the pancreas. FAMILY HISTORY: Noncontributory. SOCIAL HISTORY: shelter resident, now with generalized debility. REVIEW OF SYSTEMS: No nausea, vomiting or diarrhea. He has a PEG tube. Peripheral IV in place. PHYSICAL EXAMINATION: VITAL SIGNS: Afebrile and hemodynamically stable. GENERAL: He was alert and cooperative. HEENT: Remarkable for tracheostomy with some bloody drainage from the aspirate. He was thin. LUNGS: Decreased breath sounds bilaterally. No consolidation audible. HEART: Regular, tachycardic. ABDOMEN: Soft. PEG site was unremarkable. EXTREMITIES: Unremarkable. LABORATORY STUDIES: MRSA screen positive. CT scan of the chest, extensive consolidation, patchy infiltrate lower lungs bilaterally, large bullae [facility] [address] [place] [address] CONSULTATION Name: JINNY BURT Room #: 351-P [facility] IN [facility]#: [id number] Admission: 12/20/17 Attend Phys: Cory Collier MD Discharge: Date of : 48 Report #: [id number] identified left lung, small amount of fluid within the large left lower lobe bleb. Hemoglobin 10, WBC 5.6, platelet count 437,000, 63% segs, 20% lymphs, 13% monocytes. BNP 463. Sodium 134, potassium 4.8, bicarbonate of 36, creatinine 0.8, AST 39. Influenza antigen negative. Bronchoscopy report: Bloody purulent secretions throughout. It was felt most likely hemoptysis, was from a tracheal source. IMPRESSION: Healthcare-associated pneumonia, aspiration bloody tracheal secretions. He has previous extended-spectrum beta-lactamase gram-negative identified from urine culture in the past. PLAN: I would recommend combination of MRSA and ESBL coverage pending culture results. ENT evaluation of his tracheostomy is underway. <ELECTRONICALLY SIGNED> By: Jose Luis Crouch MD 12/22/17 1024 1828 2207 Jose Luis Crouch MD /nt
--- NOTE | ~2017-12-20 | CNG ---
[facility] [place] [address] CYTO-NONGYN REPORT PROCEDURE Name: JINNY ALMEIDA Room #: 351-P ADM IN M.R.#: [id number] Admission: 12/20/17 Date of : 48 Discharge: Report #: [id number] Path Case #: [id number] CYTOPATHOLOGY REPORT COLLECTION DATE: 12/21/2017 RECEIVED DATE: 12/21/2017 SUBMITTING PHYS: Dr. Abdiel Concepcion OTHER PHYS: Dr. Cory Crouch CLINICAL HISTORY: HCAP, Hemotysis, Hypoxia, Tracheostomy SPECIMEN(S) RECEIVED: A.Bronchoalveolar lavage,RLL * * * * * * * * * * * * FINAL DIAGNOSIS: A. Lung, RLL, Bronchoalveolar lavage: - No malignant cells identified. Pulmonary macrophages,few squamous epithelial cells and acute inflammatory cells identified. PATHOLOGIST: Gillian Womack M.D. REPORT ELECTRONICALLY SIGNED BY: Gillian Womack M.D. DATE/TIME: 12/22/2017 13:28 * * * * * * * * * * * * GROSS PATHOLOGY: A. Bronchoalveolar lavage,RLL: The specimen is submitted unfixed, labeled "Jinny Almeida". Received by the Cytology Department is 26 mL of cloudy pink fluid. One ThinPrep slide was prepared. (mm 12.21.2017) RN MENTAL HEALTH(S): [facility]dom[facility] INITIAL CPT CODE(S): A; 45427 Professional services performed by [facility] at [facility] [address], [place] [address] Technical services performed by [facility] at [address] [place] [address], [address], [place] [address]. [facility] [address] [place] [address], [facility] [address] [place], [place] [address] [place] [address] [place] [address] CYTO-NONGYN REPORT PROCEDURE Name: JINNY ALMEIDA Room #: 351-P ADM IN M.R.#: [id number] Admission: 12/20/17 Date of : 48 Discharge: Report #: [id number] Path Case #: [id number] PHONE: [phone] DIRECTOR: Rudi Ceja M.D. * * * END OF REPORT * * *
--- NOTE | ~2017-12-20 | D ---
[facility] [place] [address] DISCHARGE SUMMARY Name: JINNY BURT Room #: 351-P [facility] IN M.R.#: [id number] Admission: 12/20/17 Attend Phys: Cory Collier MD Discharge: 12/31/17 Date of : 48 Report #: [id number] THIS REPORT FOR: //name// CC: Clayton Collier FINAL DIAGNOSES: 1. Healthcare-associated pneumonia. 2. Hemoptysis. 3. Chronic obstructive pulmonary disease. 4. Chronic hypoxic respiratory failure. HOSPITAL COURSE: The patient was admitted with hemoptysis. He received bronchoscopy and ENT evaluation, his trach shield was changed. There were no obvious signs of bleeding, but it was determined that this was related to a lower respiratory tract pneumonia infection. He was treated with antibiotics accordingly and slowly the hemoptysis subsided. He gradually was weaned off the ventilator back to trach shield which he was tolerating the last 2 hospital days without incident. PHYSICAL EXAMINATION: On the day of discharge: GENERAL: He was awake and alert with stable vital signs. LUNGS: Clear. HEART: Regular. ABDOMEN: Soft, normoactive bowel sounds. EXTREMITIES: No edema. DISPOSITION: He will be transferred back to [facility] facility with care of Dr. Crouch. I will continue all current medications, including meropenem. He will be on trach shield, tube feeding for now as he has not taken oral diet. Prognosis remains guarded due to his severe COPD. Our service will follow his stay and I have prepared all the orders. <ELECTRONICALLY SIGNED> By: Devonte Awad MD 12/31/17 1630 0847 1112 Devonte Awad MD /nt
--- NOTE | ~2017-12-20 | HC ---
[facility] [place] [address] CONSULTATION Name: JINNY BURT Room #: 351-P [facility] IN M.R.#: [id number] Admission: 12/20/17 Attend Phys: Cory Collier MD Discharge: Date of : 48 Report #: [id number] THIS REPORT FOR: //name// CC: Clayton Collier DATE OF SERVICE: 12/21/2017 REFERRING PROVIDER: Devonte Awad MD. REASON FOR CONSULTATION: Hemoptysis, chronic tracheostomy. CHIEF COMPLAINT: Hemoptysis, shortness of breath. HISTORY OF PRESENT ILLNESS: Our group was asked to evaluate the patient in consultation while hospitalized at [facility]. He had recently been hospitalized here as recently as October, had prior chronic tracheostomy and vent support, had recently been weaned from mechanical ventilatory support and initially presented with a capped trach to the hospital yesterday evening with complaints of increasing shortness of breath and hemoptysis. He had prior episodes of hemoptysis requiring bronchoscopy and ENT evaluation in 07/2017. Findings of an ulcer in the trachea that was cauterized and extended length trach was put in at that time for the trach cuff to be distal to the injury. The patient noted symptoms for the last 2-3 days. No fever, chills or sweats. The patient continues to have some bloody hemoptysis noted. The patient notes significant difficulty with breathing at this time. ALLERGIES: None known. PAST MEDICAL HISTORY: 1. COPD. 2. History of chronic respiratory insufficiency. 3. History of loculated pleural effusion. 4. History of pneumothorax. 5. Tracheal ulcer. 6. Paroxysmal atrial fibrillation. 7. Cystic lesion on the pancreas. PAST SURGICAL HISTORY: Uncertain of tracheostomy. SOCIAL HISTORY: Unable to obtain. FAMILY HISTORY: Unknown. [facility] [address] [place] [address] CONSULTATION Name: JINNY BURT Elly Room #: 351-P [facility] IN [facility]#: [id number] Admission: 12/20/17 Attend Phys: Cory Collier MD Discharge: Date of : 48 Report #: [id number] REVIEW OF SYSTEMS: CONSTITUTIONAL: No fevers, chills, sweats. ENT: Tracheostomy in place, prior tracheal bleeding noted. GASTROINTESTINAL: No nausea or vomiting. The patient does not take much p.o., but is cleared for oral intake, has a PEG tube in place. GENITOURINARY: No dysuria, no frequency. INTEGUMENT: Denies any new rash. MUSCULOSKELETAL: Generalized weakness and debilitation. States he can ambulate from his bed to the nursing station at this current LTAC. PHYSICAL EXAMINATION: VITAL SIGNS: Afebrile, pulse 90s, respiratory rate 16, blood pressure 102/67, oxygen saturation 99% on 3 L. GENERAL: This is a thin, elderly black male, alert and conversant with speaking valve in place. ENT: Revealed a size 7.0 tight shaft Bivona tracheostomy tube in place. No surrounding erythema. LUNGS: Coarse, markedly diminished in the bases. CARDIOVASCULAR: Heart regular. No murmurs noted. ABDOMEN: Soft, nontender. PEG tube in place. EXTREMITIES: Revealed significant muscular atrophy with 2+ pulses, no edema noted. LABORATORY DATA: Chest x-ray and CT chest, both confirmed bibasilar extensive infiltrates, loculated pleural effusion on the left with endobronchial debris noted in the lower lobe suggestive of mucus plugging or blood clotting. No arterial blood gases performed. White blood cell count 6000, hemoglobin 10, hematocrit 31, platelet count 437. Sodium 134, potassium 4.8, chloride 97, bicarbonate 36, BUN 21, creatinine 0.8, MRSA screen pending. IMPRESSION: 1. Hemoptysis, concern for upper and/or lower respiratory source with prior tracheal ulceration. 2. Pneumonia, healthcare associated. 3. Chronic respiratory insufficiency. 4. Chronic trach. 5. Underlying chronic obstructive pulmonary disease, emphysema predominant on prior scans. 6. General debilitation. 7. Protein malnourishment. SUGGESTIONS: 1. Bronchoscopy today. 2. ENT evaluation. 3. Infectious Disease consultation to assist with antibiotic management. [address] [address] CONSULTATION Name: CARMELJINNY L Room #: 351-P [facility] IN M.R.#: [id number] Admission: 12/20/17 Attend Phys: Cory Collier MD Discharge: Date of : 48 Report #: [id number] 4. Uncapped trach in place on humidified supplemental oxygen. 5. Bronchodilators. 6. Check coags. 7. Additional recommendations to follow. Thank you for requesting our suggestions. By: 1103 1247 Abdiel Concepcion MD /nt
--- NOTE | ~2017-12-20 | H ---
[facility] [place] [address] HISTORY AND PHYSICAL Name: JINNY BURT Room #: 351-P [facility] IN M.R.#: [id number] Admission: 12/20/17 Attend Phys: Cory Collier MD Discharge: Date of : 48 Report #: [id number] THIS REPORT FOR: //name// CC: Clayton Collier DATE OF SERVICE: 12/20/2017 CHIEF COMPLAINT: Bloody sputum. HISTORY OF PRESENT ILLNESS: The patient is a 67-year-old gentleman from [facility] LT[facility] facility, was sent to the ER with hemoptysis. He has had a long history of respiratory failure I think related to pneumonia and hospitalization episode sometime in 2016, this left him with tracheostomy tube, PEG tube and ventilator dependence. He was over at [facility] for a number of months and had a couple of admissions here for hemoptysis. Last fall in July, he was here for a extended period of time and after several bronchoscopies and ENT procedures, it was determined he had a bleeding tracheal ulcer. That was stabilized and then he transferred back to [facility]. He had another hospitalization here for abdominal symptoms and then transferred to the LTAC facility where he was subsequently weaned from the ventilator. In recent weeks, he has been tolerating his tracheostomy tube with a cap and to speak and eat during the day; however, he began spitting up blood in the last couple of days and was sent to the ER. PAST MEDICAL HISTORY: Recurrent hemoptysis, COPD, emphysema, paroxysmal AFib, history of urinary retention, pleural effusions, history of pneumothorax. PAST SURGICAL HISTORY: As above. FAMILY HISTORY: Noncontributory. SOCIAL HISTORY: Heavy tobacco history. ALLERGIES: None. MEDICATIONS: Erythromycin for GI motility, oxycodone, Reglan, lactulose, Pepcid, amiodarone, DuoNeb. REVIEW OF SYSTEMS: Denies headache, chest pain, shortness of breath, abdominal pain, nausea, vomiting, diarrhea, constipation, dysuria, syncope. OBJECTIVE: VITAL SIGNS: Temperature 36.7, pulse 93, respirations 16, blood pressure 102/67. GENERAL: He is awake and alert, in no distress. [address] [address] HISTORY AND PHYSICAL Name: JINNY BURT Room #: 351-P [facility] IN .R.#: [id number] Admission: 12/20/17 Attend Phys: Cory Collier MD Discharge: Date of : 48 Report #: [id number] HEAD AND NECK: He has some bleeding around the tracheostomy. There is blood in the suction canister. LUNGS: Clear anteriorly. HEART: Regular. ABDOMEN: Soft, normoactive bowel sounds. PEG tube. EXTREMITIES: No edema. ASSESSMENT: 1. Recurrent hemoptysis. 2. Chronic obstructive pulmonary disease. 3. Tracheostomy tube dependent. 4. Moderate protein-calorie malnutrition, albumin 2.5. PLAN: The pulmonary service has assessed him and bronchoscopy has been performed. I have asked Dr. Good to reassess him and Dr. Jose Luis Crouch to assess for pneumonia. <ELECTRONICALLY SIGNED> By: Devonte Awad MD 12/21/17 1536 1147 1247 Devonte Awad MD /nt
--- NOTE | ~2017-12-20 | HC ---
[facility] [place] [address] CONSULTATION Name: JINNY BURT Elly Room #: 351-P [facility] IN .R.#: [id number] Admission: 12/20/17 Attend Phys: Cory Collier MD Discharge: Date of : 48 Report #: [id number] THIS REPORT FOR: //name// CC: Clayton Collier DATE OF SERVICE: 12/21/2017 REASON FOR CONSULTATION: Tracheotomy complication. HISTORY OF PRESENT ILLNESS: The patient is a 67-year-old male who has come from [facility] long-term care facility with hemoptysis. He has a lower lung infection and has been coughing up blood, had an episode of respiratory failure, pneumonia in 2017, which left him with a tracheotomy tube, PEG tube and ventilator dependent. He has been able to cap his trach over the last several days and speak and eat during the day. He has been spitting up blood in the last couple of days, was sent to the Emergency Room, has a lower lung infiltrate with recurrent pneumonia. PAST MEDICAL HISTORY: Significant for recurrent hemoptysis, COPD, emphysema, atrial fibrillation, urinary retention, pleural effusion, pneumothorax. FAMILY HISTORY: Noncontributory. SOCIAL HISTORY: Heavy tobacco use. ALLERGIES: NONE. MEDICATIONS: See his MAR for his current medication list. REVIEW OF SYSTEMS: Significant for some shortness of breath, coughing, bleeding from his trach. PHYSICAL EXAMINATION: GENERAL: He is a well-developed, male who is in mild respiratory distress and needs to be suctioned currently. There is no evidence of active hemoptysis at this moment in time, however, in suction, there is blood in the sputum and the suction. HEENT: Head is normocephalic. Pupils are equal. Nasal: No active rhinorrhea. Oral cavity: Granular ulceration seen. NECK: Trachea is midline. He currently has a tracheotomy tube in place, which is a Portex tube, it is cuffed and the cuff is down with suction. He does cough around it and produces some voice. He is currently on a T-piece. The T-piece is resulting in the tracheotomy tube being torqued towards the patient's right side. There is granulation tissue present in the anterior neck at the area of the tracheotomy tube. It appears that there is a tract, which is lying [address] [address] CONSULTATION Name: JINNY BURT Elly Room #: 351-P [facility] IN .R.#: [id number] Admission: 12/20/17 Attend Phys: Cory Collier MD Discharge: Date of : 48 Report #: [id number] subcutaneously where there is granulation present. There is a fairly significant tracheostomy wound inferiorly. IMPRESSION: Tracheotomy tube complication. PLAN: He would be better off on a trach shield without having any resting pressure on the tracheotomy tube, which is torquing down and causing granulation on the anterior aspect of the tracheotomy. This can be dressed with antibiotic steroid cream and a 4 x 4 and should have no pressure placed on the wound inferiorly as this is causing increasing problems with granulation. There is no evidence of active tracheotomy site infection. There is no evidence of significant bleeding from around the tracheotomy tube itself. It appears that most of his blood is coming from the lower respiratory tree. Continued excellent pulmonary toilet with antibiotics should cure the hemoptysis. <ELECTRONICALLY SIGNED> By: Leonides Jo MD 12/26/17 0815 1737 1755 Leonides Jo MD /nt
[2017-12-20 15:39] VITALS: BP 104/65
[2017-12-20 16:43] LABS: HEMATOCRIT 30.7 % (42.0-52.0); MCH 27.7 pg (26.0-34.0); MCHC 32.6 g/dL (28.0-37.0); MCV 85.1 fL (80.0-100.0); PLATELET COUNT 437 thou/uL (150-400); RBC 3.61 mil/uL (4.50-6.00); RDW 16.9 % (10.5-14.5); WBC 5.6 thou/uL (4.0-11.0)
[2017-12-20 16:51] LABS: ANION GAP 1 mmol/L (7-16); BUN 21 mg/dL (7-18); CALCIUM 8.7 mg/dL (8.5-10.1); CHLORIDE 97 mmol/L (98-107); CO2 36 mmol/L (21-32); CREATININE 0.8 mg/dL (0.7-1.3); GLUCOSE 89 mg/dL (74-106); POTASSIUM 4.8 mmol/L (3.5-5.1); SODIUM 134 mmol/L (136-145)
[2017-12-20 17:00] LABS: ALBUMIN 2.5 g/dL (3.4-5.0); SGOT 39 U/L (15-37); SGPT 34 U/L (30-65); TOTAL BILIRUBIN 0.4 mg/dL (<0.1-1.0); TOTAL PROTEIN 7.9 g/dL (6.4-8.2); TROPONIN-I < 0.04 ng/mL (<0.06)
[2017-12-20 17:23] LABS: ABSOLUTE NEUTROPHILS 3.5 thou/uL (1.4-8.2)
[2017-12-20 17:24] LABS: ANISOCYTOSIS 1+; SCHISTOCYTES OCCASIONAL; TARGET CELLS OCCASIONAL
[2017-12-20 17:55] VITALS: BP 102/69
[2017-12-20 18:51] VITALS: BP 99/51
[2017-12-20 19:55] VITALS: BP 80/64
[2017-12-20 23:40] VITALS: BP 97/66
[2017-12-21 03:30] VITALS: BP 97/58
[2017-12-21 08:22] VITALS: BP 102/67
[2017-12-21 12:09] VITALS: BP 91/69
[2017-12-21 12:13] LABS: INR 1.1
[2017-12-21 17:19] VITALS: BP 106/60
[2017-12-21 20:10] VITALS: BP 119/69
[2017-12-21 23:55] VITALS: BP 104/70
[2017-12-22 00:14] LABS: BE(vivo) 0.9 mmol/L (-2 to +3); HCO3 28.5 mmol/L (22.0-26.0); PCO2 60.7 mmHg (35.0-45.0); PO2 71.4 mmHg (80.0-100.0); sO2 92.1 % (92.0-98.0)
[2017-12-22 00:15] LABS: pH 7.289 (7.360-7.450)
[2017-12-22 03:44] VITALS: BP 101/68
[2017-12-22 04:09] LABS: BE(vivo) 4.8 mmol/L (-2 to +3); HCO3 31.3 mmol/L (22.0-26.0); PCO2 57.1 mmHg (35.0-45.0); PO2 63.1 mmHg (80.0-100.0); pH 7.357 (7.360-7.450); sO2 90.8 % (92.0-98.0)
[2017-12-22 07:10] VITALS: BP 95/50
[2017-12-22 10:05] LABS: HEMATOCRIT 28.3 % (42.0-52.0); HEMOGLOBIN 9.1 gm/dL (14.0-18.0); MCH 27.7 pg (26.0-34.0); MCV 86.4 fL (80.0-100.0); RBC 3.28 mil/uL (4.50-6.00)
[2017-12-22 10:13] LABS: CALCIUM 8.2 mg/dL (8.5-10.1); CREATININE 0.9 mg/dL (0.7-1.3); POTASSIUM 4.1 mmol/L (3.5-5.1)
[2017-12-22 12:07] VITALS: BP 105/74
[2017-12-22 17:07] VITALS: BP 105/68
[2017-12-22 19:45] VITALS: BP 120/66
[2017-12-23 00:04] LABS: BE(vivo) 8.2 mmol/L (-2 to +3); HCO3 35.2 mmol/L (22.0-26.0); PCO2 63.6 mmHg (35.0-45.0); PO2 74.6 mmHg (80.0-100.0); pH 7.361 (7.360-7.450)
[2017-12-23 04:59] VITALS: BP 102/68
[2017-12-23 08:18] VITALS: BP 100/71
[2017-12-23 08:36] LABS: BE(vivo) 8.2 mmol/L (-2 to +3); HCO3 34.5 mmol/L (22.0-26.0); PCO2 57.6 mmHg (35.0-45.0); PO2 79.2 mmHg (80.0-100.0); pH 7.395 (7.360-7.450); sO2 95.4 % (92.0-98.0)
[2017-12-23 11:58] VITALS: BP 103/58
[2017-12-23 17:00] VITALS: BP 107/64
[2017-12-23 20:25] VITALS: BP 115/72
[2017-12-24 06:05] LABS: HEMATOCRIT 28.3 % (42.0-52.0); HEMOGLOBIN 9.2 gm/dL (14.0-18.0); MCH 28.2 pg (26.0-34.0); MCHC 32.5 g/dL (28.0-37.0); MCV 86.8 fL (80.0-100.0); RBC 3.27 mil/uL (4.50-6.00); RDW 17.2 % (10.5-14.5); WBC 6.2 thou/uL (4.0-11.0)
[2017-12-24 06:16] LABS: CALCIUM 7.8 mg/dL (8.5-10.1); CREATININE 0.5 mg/dL (0.7-1.3); POTASSIUM 4.9 mmol/L (3.5-5.1)
[2017-12-24 08:07] VITALS: BP 90/59
[2017-12-24 12:10] VITALS: BP 105/74
[2017-12-24 15:41] VITALS: BP 110/74
[2017-12-24 21:04] VITALS: BP 131/87
[2017-12-25 04:50] VITALS: BP 148/89
[2017-12-25 05:43] LABS: BE(vivo) 10.1 mmol/L (-2 to +3); HCO3 36.7 mmol/L (22.0-26.0); PCO2 62.5 mmHg (35.0-45.0); PO2 72.5 mmHg (80.0-100.0); pH 7.387 (7.360-7.450); sO2 93.9 % (92.0-98.0)
[2017-12-25 08:19] VITALS: BP 121/83
[2017-12-25 11:11] VITALS: BP 97/67
[2017-12-25 15:05] VITALS: BP 121/80
[2017-12-25 19:18] VITALS: BP 101/61
[2017-12-26] VITALS (7 sets, daily range): BP systolic 83–107; BP diastolic 59–73
[2017-12-26 07:49] LABS: HEMOGLOBIN 9.3 gm/dL (14.0-18.0); MCH 28.1 pg (26.0-34.0); MCHC 32.2 g/dL (28.0-37.0); RBC 3.33 mil/uL (4.50-6.00); RDW 16.7 % (10.5-14.5); WBC 4.9 thou/uL (4.0-11.0)
[2017-12-26 07:55] LABS: CREATININE 0.6 mg/dL (0.7-1.3); POTASSIUM 4.8 mmol/L (3.5-5.1)
[2017-12-26 10:56] LABS: BE(vivo) 14.2 mmol/L (-2 to +3); HCO3 42.1 mmol/L (22.0-26.0); PO2 58.7 mmHg (80.0-100.0); pH 7.375 (7.360-7.450); sO2 88.5 % (92.0-98.0)
[2017-12-26 10:57] LABS: PCO2 73.7 mmHg (35.0-45.0)
[2017-12-26 13:45] LABS: BE(vivo) 14.2 mmol/L (-2 to +3); HCO3 41.3 mmol/L (22.0-26.0); PO2 224.1 mmHg (80.0-100.0); pH 7.404 (7.360-7.450); sO2 99.4 % (92.0-98.0)
[2017-12-26 13:46] LABS: PCO2 67.5 mmHg (35.0-45.0)
[2017-12-27 05:19] VITALS: BP 109/73
[2017-12-27 08:23] VITALS: BP 110/76
[2017-12-27 12:01] VITALS: BP 112/83
[2017-12-27 15:54] VITALS: BP 120/84
[2017-12-27 20:10] VITALS: BP 107/74
[2017-12-28 05:03] VITALS: BP 123/78
[2017-12-28 08:15] VITALS: BP 104/77
[2017-12-28 12:32] VITALS: BP 107/70
[2017-12-28 16:05] VITALS: BP 117/73
[2017-12-28 19:21] VITALS: BP 117/74
[2017-12-29 03:59] VITALS: BP 132/89
[2017-12-29 08:00] VITALS: BP 117/88
[2017-12-29 12:00] VITALS: BP 131/83
[2017-12-29 12:03] LABS: BE(vivo) 14.4 mmol/L (-2 to +3); HCO3 40.5 mmol/L (22.0-26.0); PCO2 60.8 mmHg (35.0-45.0); PO2 80.1 mmHg (80.0-100.0); pH 7.441 (7.360-7.450); sO2 95.9 % (92.0-98.0)
[2017-12-29 16:00] VITALS: BP 147/100
[2017-12-29 19:02] VITALS: BP 162/102
[2017-12-30 03:05] VITALS: BP 129/77
[2017-12-30 06:56] LABS: BE(vivo) 6.8 mmol/L (-2 to +3); HCO3 32.3 mmol/L (22.0-26.0); PO2 80.1 mmHg (80.0-100.0); pH 7.419 (7.360-7.450); sO2 95.9 % (92.0-98.0)
[2017-12-30 07:39] VITALS: BP 106/75
[2017-12-30 11:56] VITALS: BP 97/61
[2017-12-30 16:04] VITALS: BP 91/58
[2017-12-30 19:13] VITALS: BP 103/71
[2017-12-31 04:05] VITALS: BP 119/85
[2017-12-31 07:51] VITALS: BP 110/74
[2017-12-31] MEDS ORDERED: MEROPENEM500 MG IV (08:41)
[2017-12-31] MEDS ORDERED: ACETAMINOPHEN325 M1 PO (08:42)
[2017-12-31] MEDS ORDERED: HYDROCODONE-ACE15 ML PER TUBE (08:42)
[2017-12-31] MEDS ORDERED: ATIVAN0.5 MG PO (08:43)
== END 2017-12-31 12:51 | DRG 166 ==
LOC: ER 15:35 → 3W 17:42 → EROBS 17:42 → 3W 19:04
PROVIDERS: Emergency Medicine; Internal Medicine; Internal Medicine Geriatric Medicine; Internal Medicine Pulmonary Disease
PROC: 0B9F8ZX Drainage of Right Lower Lung Lobe, Via Natural or Artificial Opening Endoscopic, Diagnostic (ICD-10-PCS; principal; 2017-12-21)
PROC: 5A1955Z Respiratory Ventilation, Greater than 96 Consecutive Hours (ICD-10-PCS; 2017-12-26)
DX: J69.0 Pneumonitis due to inhalation of food and vomit (principal); J96.21 Acute and chronic respiratory failure with hypoxia; J96.22 Acute and chronic respiratory failure with hypercapnia; J95.01 Hemorrhage from tracheostomy stoma; E44.0 Moderate protein-calorie malnutrition; Y82.8 Other medical devices associated with adverse incidents; Y83.8 Other surgical procedures as the cause of abnormal reaction of the patient, or of later complication, without mention of misadventure at the time of the procedure; N40.0 Benign prostatic hyperplasia without lower urinary tract symptoms; I10 Essential (primary) hypertension; K59.00 Constipation, unspecified; F41.9 Anxiety disorder, unspecified; J44.9 Chronic obstructive pulmonary disease, unspecified; I48.0 Paroxysmal atrial fibrillation; J39.8 Other specified diseases of upper respiratory tract; Z68.20 Body mass index [BMI] 20.0-20.9, adult
CPT/HCPCS: 10879

== ENCOUNTER 2018-04-20 15:28 | Inpatient (IN) | payer OTHER, MEDICAID ==
[~2018-04-20] VITALS: Ht 190.5 cm; Wt 62.6 kg
--- NOTE | ~2018-04-20 | D ---
[facility] [place] [address] DISCHARGE SUMMARY Name: JINNY BURT Elly Room #: 362-P [facility] IN M.R.#: [id number] Admission: 04/20/18 Attend Phys: Maricarmen Mario Discharge: 04/26/18 Date of : 49 Report #: [id number] THIS REPORT FOR: //name// CC: Clayton Crouch FINAL DIAGNOSES: 1. Methicillin-resistant Staphylococcus aureus pneumonia. 2. Hemoptysis, due to the above. 3. Chronic obstructive pulmonary disease. 4. Emphysema. 5. Chronic hypercapnic respiratory failure. 6. Ventilator dependence. 7. Tracheostomy dependence. 8. Adynamic ileus. 9. Hyperkalemia. 10. Hyponatremia. 11. Anemia of chronic disease. HOSPITAL COURSE: The patient was admitted with reports of hemoptysis. There was a report of some penile drainage or difficulty with his Hancock catheter, but he had no issues during his stay here. CT of the chest was negative for PE. Sputum culture grew MRSA. Vancomycin was ordered along with Zosyn and Levaquin, which was subsequently then discontinued. Other home medications were continued with the exception of Reglan, which I felt may be contributing to his hyperkalemia. He was tolerating tube feeds. With fluid resuscitation, his sodium normalized and potassium. Ultimately, he was felt to have terminal lung disease that he is in nonweanable situation. Plan was just supportive care. PHYSICAL EXAMINATION: GENERAL: On the day of discharge, he was awake and alert and in no distress. VITAL SIGNS: Stable. LUNGS: Clear. HEART: Regular. ABDOMEN: Protuberant, soft, normal bowel sounds. EXTREMITIES: No edema. DISPOSITION: He will return to [facility] with IV vancomycin for 10 more days, Levaquin per tube for 10 more days. He will resume all his other medications with the exception of Reglan. I have ordered followup lab data in 2 days' time. Ultimately, this is a terminal lung disease situation and he needs to reconsider his code status as I am not aware of any family or other decision maker to intervene on his behalf. <ELECTRONICALLY SIGNED> By: Devonte Awad MD 04/29/18 1211 1015 1108 Devonte Awad MD /nt
--- NOTE | ~2018-04-20 | H ---
[facility] [place] [address] HISTORY AND PHYSICAL Name: JINNY BURT Room #: 362-P [facility] IN M.R.#: [id number] Admission: 04/20/18 Attend Phys: Maricarmen Mario Discharge: Date of : 49 Report #: [id number] THIS REPORT FOR: //name// CC: Clayton Crouch DATE OF SERVICE: 04/20/2018 CHIEF COMPLAINT: Scrotal edema. HISTORY OF PRESENT ILLNESS: The patient is a 67-year-old gentleman with COPD and chronic ventilator dependence, who was sent to the ER from [facility] for evaluation of several complaints, but apparently the presenting issue was penile and scrotal swelling, there is very limited data available, but that was reported to the ER staff. He was also noted to have some blood-tinged sputum in his tracheostomy tube. He has a history of extensive hemoptysis in the past, I believe related initially to tracheal ulcer that required cauterization by ENT and he has had several tracheostomy tubes exchanged. In recent past, he has had MRSA pneumonia, I believe was a contributing factor for recurrent hemoptysis. He has a long history of COPD due to bullous emphysema and respiratory failure that [facility] at [facility] over a year ago. He was at the LTAC facility several times and has failed to consistently wean and stay off the ventilator. Most recently, a few months ago, he was unable to wean and is now chronically ventilated at the [facility] care unit. He has had a history of adynamic ileus as well, with difficulty of gastric motility. He has been receiving Reglan for motility. Initial ER labs showed significant hyponatremia and hyperkalemia. PAST MEDICAL HISTORY: COPD due to bullous emphysema; chronic respiratory failure, ventilator and tracheostomy tube dependent; chronic PEG tube dependent; adynamic ileus; paroxysmal AFib, not on anticoagulation due to recurrent tracheal bleed; chronic constipation; anxiety. There is a report of a pancreatic cyst, history of urinary retention with Hancock catheter, remote history of pneumothorax and I believe he has had a chest tube at one point. PAST SURGICAL HISTORY: Unknown. FAMILY HISTORY: Unknown. SOCIAL HISTORY: A 26-whyh-zpoo history of smoking, but he has been ventilated now for about 2 years in the hospital. Unknown alcohol use. ALLERGIES: None. MEDICATIONS: Reglan, Ativan, Paxil, hydrocodone, amiodarone, lactulose, Ativan and erythromycin. [address] [address] HISTORY AND PHYSICAL Name: JINNY BURT Room #: 362-P [facility] IN [facility]#: [id number] Admission: 04/20/18 Attend Phys: Maricarmen Mario Discharge: Date of : 49 Report #: [id number] REVIEW OF SYSTEMS: Denies headache, chest pain, shortness of breath, abdominal pain. He does have some distention, complains of some scrotal pain, no joint pain. OBJECTIVE: VITAL SIGNS: Temperature 36.9, he has been afebrile, pulse , respirations 16, blood pressure 116/69, O2 sat 100% on the ventilator. GENERAL: He is awake and alert, on the trach, he tries to nod and answer questions. HEAD AND NECK: Unremarkable. Trach in place. LUNGS: Clear anteriorly. HEART: Regular. ABDOMEN: Protuberant, soft, scattered hypoactive bowel sounds. PEG tube in place. EXTREMITIES: No cyanosis, clubbing or edema. GENITOURINARY: Scrotum has some dependent pitting edema. There is no erythema, he has a little bit of penile swelling, but there is no penile discharge. Hancock catheter in place. I see no bleeding wounds. NEUROLOGIC: He moves his arms. Global strength about 3/5. LABORATORY DATA REVIEW: White count 13.5, hemoglobin 8.9. Sodium initially was 120, now 123; with initial potassium 6.1, now 5.8. CT chest shows negative for PE. Doppler ultrasound was negative for DVT. Chest x-ray and CT are showing bullous emphysema with some pulmonary fibrosis and a left lower lobe infiltrate. ASSESSMENT: 1. Healthcare-associated pneumonia. 2. Chronic ventilator dependence. 3. Chronic hypercapnic hypoxic respiratory failure. 4. Chronic obstructive pulmonary disease. 5. Chronic hemoptysis. 6. Hyponatremia. 7. Hyperkalemia. 8. Adynamic ileus. 9. Chronic oropharyngeal dysphagia with percutaneous endoscopic gastrostomy tube. 10. Anemia of chronic disease. 11. Chronic hemoptysis. PLAN: Initial treatment with IV fluids for his sodium and we will add some treatment for his hyperkalemia. I will discontinue his Reglan for now if there is a component of this contributing to the potassium issue. I have asked Dr. Concepcion or the Pulmonary Service to follow his ventilator care during his stay, but as he has failed ventilator weaning in the past, this is a chronic [facility] [address] [place] [address] HISTORY AND PHYSICAL Name: JINNY BURT Room #: 362-P ADM IN M.R.#: [id number] Admission: 04/20/18 Attend Phys: Maricarmen Mario Discharge: Date of : 48 Report #: [id number] ventilator dependent patient. However, given the hypercarbia, there may be some in ventilator adjustment ability. Other supportive measures, to continue, including empiric antibiotics. No Lovenox DVT prophylaxis at this point due to recurrent tracheal bleed and hemoptysis, SCDs for now. His overall condition is poor as he has terminal illness of lung disease and ventilator dependence. Ultimate plan, if stabilization occurs, will be to return to [facility]. <ELECTRONICALLY SIGNED> By: Devonte Awad MD 04/25/18 1144 1139 1226 Devonte Awad MD /nt
[~2018-04-20 15:28] MED LIST changes: +ACETAMINOPHEN325 M1 PO; +ATIVAN0.5 MG PO; +HYDROCODONE-ACE15 ML PER TUBE; +MEROPENEM500 MG IV
[2018-04-20 15:34] VITALS: BP 120/90
[2018-04-20 16:32] LABS: BE(vivo) 12.6 mmol/L (-2 to +3); PO2 101.6 mmHg (80.0-100.0); sO2 96.8 % (92.0-98.0)
[2018-04-20 16:33] LABS: PCO2 82.4 mmHg (35.0-45.0); pH 7.315 (7.360-7.450)
[2018-04-20 19:36] VITALS: BP 134/88
[2018-04-20 20:33] VITALS: BP 121/74
[2018-04-20 20:46] LABS: ABSOLUTE NEUTROPHILS 11.8 thou/uL (1.4-8.2); BASOPHILS 0.1 % (0.0-2.0); EOSINOPHILS 0.1 % (0.0-3.0); HEMATOCRIT 27.1 % (42.0-52.0); HEMOGLOBIN 8.9 gm/dL (14.0-18.0); LYMPHOCYTES 4.5 % (24.0-44.0); MCH 27.8 pg (26.0-34.0); MCHC 32.9 g/dL (28.0-37.0); MCV 84.4 fL (80.0-100.0); MONOCYTES 7.8 % (1.0-8.0); PLATELET COUNT 215 thou/uL (150-400); POLYS 87.5 % (36.0-66.0); RBC 3.21 mil/uL (4.50-6.00); RDW 16.5 % (10.5-14.5); WBC 13.5 thou/uL (4.0-11.0)
[2018-04-20 20:55] LABS: ANION GAP < 0 mmol/L (7-16); BUN 25 mg/dL (7-18); CALCIUM 8.7 mg/dL (8.5-10.1); CHLORIDE 84 mmol/L (98-107); CO2 40 mmol/L (21-32); CREATININE 0.7 mg/dL (0.7-1.3); GLUCOSE 101 mg/dL (74-106); SODIUM 120 mmol/L (136-145)
[2018-04-20 20:56] LABS: POTASSIUM 6.1 mmol/L (3.5-5.1)
[2018-04-20] MEDS ORDERED: Acetaminophen PER TUBE (21:36)
[2018-04-20] MEDS ORDERED: NORCO 7.5-3251 EACH PER TUBE (21:41)
[2018-04-20] MEDS ORDERED: PAXIL10 MG PER TUBE (21:43)
[2018-04-20] MEDS ORDERED: ATIVAN0.5 MG PER TUBE (21:45)
[2018-04-20] MEDS ORDERED: REGLAN 10 MG TA10 MG PER TUBE (21:49)
[2018-04-21 03:46] VITALS: BP 132/83
[2018-04-21 06:45] LABS: ANION GAP < 0 mmol/L (7-16); BUN 22 mg/dL (7-18); CALCIUM 7.9 mg/dL (8.5-10.1); CHLORIDE 88 mmol/L (98-107); CO2 39 mmol/L (21-32); CREATININE 0.7 mg/dL (0.7-1.3); GLUCOSE 77 mg/dL (74-106); POTASSIUM 5.9 mmol/L (3.5-5.1); SODIUM 123 mmol/L (136-145)
[2018-04-21 08:28] VITALS: BP 116/69
[2018-04-21 12:19] VITALS: BP 139/86
[2018-04-21 13:51] LABS: BE(vivo) 8.2 mmol/L (-2 to +3); HCO3 35.7 mmol/L (22.0-26.0); PO2 92.1 mmHg (80.0-100.0)
[2018-04-21 13:52] LABS: PCO2 72.6 mmHg (35.0-45.0)
[2018-04-21 16:04] VITALS: BP 115/76
[2018-04-21 17:01] LABS: ANION GAP < 0 mmol/L (7-16); BUN 16 mg/dL (7-18); CHLORIDE 94 mmol/L (98-107); CO2 40 mmol/L (21-32); CREATININE 0.8 mg/dL (0.7-1.3); GLUCOSE 99 mg/dL (74-106); POTASSIUM 5.5 mmol/L (3.5-5.1); SODIUM 129 mmol/L (136-145)
[2018-04-21 20:15] VITALS: BP 124/71
[2018-04-22 04:10] VITALS: BP 119/68
[2018-04-22 06:05] LABS: HEMATOCRIT 22.6 % (42.0-52.0); HEMOGLOBIN 7.5 gm/dL (14.0-18.0); MCH 28.4 pg (26.0-34.0); MCHC 33.3 g/dL (28.0-37.0); MCV 85.5 fL (80.0-100.0); RBC 2.65 mil/uL (4.50-6.00); RDW 16.4 % (10.5-14.5); WBC 10.4 thou/uL (4.0-11.0)
[2018-04-22 06:26] LABS: CALCIUM 7.4 mg/dL (8.5-10.1); CREATININE 0.7 mg/dL (0.7-1.3)
[2018-04-22 06:28] LABS: POTASSIUM 4.3 mmol/L (3.5-5.1)
[2018-04-22 07:43] LABS: BE(vivo) 11.1 mmol/L (-2 to +3); HCO3 38.4 mmol/L (22.0-26.0); PCO2 70.4 mmHg (35.0-45.0); PO2 105.5 mmHg (80.0-100.0); pH 7.355 (7.360-7.450); sO2 97.4 % (92.0-98.0)
[2018-04-22 08:43] VITALS: BP 132/76
[2018-04-22 11:09] LABS: ANION GAP < 0 mmol/L (7-16); BUN 11 mg/dL (7-18); CALCIUM 7.5 mg/dL (8.5-10.1); CHLORIDE 93 mmol/L (98-107); CO2 39 mmol/L (21-32); CREATININE 0.6 mg/dL (0.7-1.3); GLUCOSE 128 mg/dL (74-106); POTASSIUM 3.8 mmol/L (3.5-5.1); SODIUM 131 mmol/L (136-145)
[2018-04-22 11:55] LABS: HEMATOCRIT 21.9 % (42.0-52.0); HEMOGLOBIN 7.3 gm/dL (14.0-18.0); MCH 28.1 pg (26.0-34.0); MCHC 33.2 g/dL (28.0-37.0); MCV 84.9 fL (80.0-100.0); RBC 2.59 mil/uL (4.50-6.00); RDW 16.5 % (10.5-14.5); WBC 10.7 thou/uL (4.0-11.0)
[2018-04-22 14:22] VITALS: BP 135/89
[2018-04-22 17:05] VITALS: BP 128/84
[2018-04-22 20:00] VITALS: BP 121/79
[2018-04-23 04:30] VITALS: BP 131/78
[2018-04-23 08:30] VITALS: BP 116/82
[2018-04-23 11:17] VITALS: BP 122/71
[2018-04-23 11:56] LABS: HEMATOCRIT 21.8 % (42.0-52.0); HEMOGLOBIN 7.2 gm/dL (14.0-18.0); MCHC 33.1 g/dL (28.0-37.0); MCV 84.6 fL (80.0-100.0); RBC 2.58 mil/uL (4.50-6.00); RDW 16.8 % (10.5-14.5); WBC 11.3 thou/uL (4.0-11.0)
[2018-04-23 12:07] LABS: ANION GAP < 0 mmol/L (7-16); BUN 11 mg/dL (7-18); CALCIUM 7.7 mg/dL (8.5-10.1); CHLORIDE 97 mmol/L (98-107); CO2 39 mmol/L (21-32); CREATININE 0.7 mg/dL (0.7-1.3); GLUCOSE 146 mg/dL (74-106); SODIUM 134 mmol/L (136-145)
[2018-04-23 16:27] VITALS: BP 122/73
[2018-04-23 19:50] VITALS: BP 117/68
[2018-04-24 03:30] VITALS: BP 139/87
[2018-04-24 08:30] VITALS: BP 138/82
[2018-04-24 11:23] LABS: HEMATOCRIT 23.8 % (42.0-52.0); HEMOGLOBIN 7.8 gm/dL (14.0-18.0); MCH 28.1 pg (26.0-34.0); MCHC 32.8 g/dL (28.0-37.0); MCV 85.7 fL (80.0-100.0); RBC 2.77 mil/uL (4.50-6.00); RDW 16.7 % (10.5-14.5); WBC 9.8 thou/uL (4.0-11.0)
[2018-04-24 11:33] LABS: ANION GAP < 0 mmol/L (7-16); BUN 14 mg/dL (7-18); CALCIUM 7.8 mg/dL (8.5-10.1); CHLORIDE 98 mmol/L (98-107); CO2 41 mmol/L (21-32); CREATININE 0.6 mg/dL (0.7-1.3); GLUCOSE 128 mg/dL (74-106); POTASSIUM 4.8 mmol/L (3.5-5.1); SODIUM 137 mmol/L (136-145)
[2018-04-24 11:50] VITALS: BP 144/92
[2018-04-24 16:21] VITALS: BP 133/86
[2018-04-24 20:00] VITALS: BP 130/84
[2018-04-25 04:27] LABS: CALCIUM 7.8 mg/dL (8.5-10.1); CREATININE 0.6 mg/dL (0.7-1.3)
[2018-04-25 04:40] VITALS: BP 136/78
[2018-04-25 04:49] LABS: HEMOGLOBIN 7.3 gm/dL (14.0-18.0); MCH 28.5 pg (26.0-34.0); MCHC 33.3 g/dL (28.0-37.0); MCV 85.6 fL (80.0-100.0); RBC 2.57 mil/uL (4.50-6.00); RDW 16.8 % (10.5-14.5); WBC 8.8 thou/uL (4.0-11.0)
[2018-04-25 08:00] VITALS: BP 142/75
[2018-04-25 12:23] VITALS: BP 152/90
[2018-04-25 16:30] VITALS: BP 141/74
[2018-04-25 20:10] VITALS: BP 137/72
[2018-04-26 04:45] VITALS: BP 144/71
[2018-04-26 06:00] LABS: HEMOGLOBIN 7.7 gm/dL (14.0-18.0); MCH 27.8 pg (26.0-34.0); MCHC 32.3 g/dL (28.0-37.0); RBC 2.79 mil/uL (4.50-6.00); RDW 16.6 % (10.5-14.5); WBC 9.5 thou/uL (4.0-11.0)
[2018-04-26 06:10] LABS: ANION GAP < 0 mmol/L (7-16); BUN 21 mg/dL (7-18); CALCIUM 7.8 mg/dL (8.5-10.1); CHLORIDE 100 mmol/L (98-107); CO2 40 mmol/L (21-32); CREATININE 0.7 mg/dL (0.7-1.3); GLUCOSE 138 mg/dL (74-106); POTASSIUM 4.9 mmol/L (3.5-5.1); SODIUM 138 mmol/L (136-145)
[2018-04-26 08:20] VITALS: BP 149/79
[2018-04-26] MEDS ORDERED: LEVAQUIN 500 M500 M2 PO (09:25)
[2018-04-26] MEDS ORDERED: HYDROCODONE-ACE15 ML PER TUBE (09:26)
[2018-04-26] MEDS ORDERED: IPRAT-ALBUT 0.5-3 ML INH (09:26)
[2018-04-26] MEDS ORDERED: ACETAMINOP160 MG/5 M PER TUBE (09:26)
[2018-04-26] MEDS ORDERED: ATIVAN0.5 MG PER TUBE (09:27)
[2018-04-26] MEDS ORDERED: VANCO 1.251.25 GM/15 IV (09:28)
[2018-04-26] MEDS ORDERED: PREDNISONE 20 M20 MG PO (09:29)
[2018-04-26 11:30] VITALS: BP 159/97
== END 2018-04-26 12:46 | DRG 207 ==
LOC: ER 15:28 → 3W 17:05 → EROBS 17:05 → 3W 20:22
PROVIDERS: Emergency Medicine; Internal Medicine; Internal Medicine Geriatric Medicine; Internal Medicine Pulmonary Disease
PROC: 5A1955Z Respiratory Ventilation, Greater than 96 Consecutive Hours (ICD-10-PCS; principal; 2018-04-20)
DX: J15.212 Pneumonia due to Methicillin resistant Staphylococcus aureus (principal); J96.22 Acute and chronic respiratory failure with hypercapnia; J96.21 Acute and chronic respiratory failure with hypoxia; K56.0 Paralytic ileus; E87.1 Hypo-osmolality and hyponatremia; R65.10 Systemic inflammatory response syndrome (SIRS) of non-infectious origin without acute organ dysfunction; I48.0 Paroxysmal atrial fibrillation; N40.0 Benign prostatic hyperplasia without lower urinary tract symptoms; I10 Essential (primary) hypertension; F41.9 Anxiety disorder, unspecified; E87.5 Hyperkalemia; J43.9 Emphysema, unspecified; D63.8 Anemia in other chronic diseases classified elsewhere; R13.12 Dysphagia, oropharyngeal phase; N50.89 Other specified disorders of the male genital organs; E87.8 Other disorders of electrolyte and fluid balance, not elsewhere classified; Z79.2 Long term (current) use of antibiotics; Z79.899 Other long term (current) drug therapy; Z87.891 Personal history of nicotine dependence; Z79.1 Long term (current) use of non-steroidal anti-inflammatories (NSAID); Z93.0 Tracheostomy status
CPT/HCPCS: 10879

== ENCOUNTER 2018-06-29 07:27 | Emergency (ER) | payer OTHER, MEDICAID ==
[~2018-06-29] VITALS: Ht 190.5 cm; Wt 74.8 kg
--- NOTE | ~2018-06-29 | EKG ---
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: [facility] : 1950 Requested By: Rtu Oliva Order Number: [id number] MD: Fausto Royal Measurements Intervals [place] Rate: 72 P: SD: QRS: -25 QRSD: 106 T: 86 QT: 392 QTc: 430 Interpretive Statements Sinus rhythm Borderline low voltage, extremity leads Nonspecific intraventricular conduction delay Nonspecific T abnormalities, lateral leads Compared to ECG 12/20/2017 16:22:20 Sinus rhythm has replaced atrial flutter Electronically Signed On 06-29-2018 17:21:00 CDT by Fausto Royal [email or web address] <ELECTRONICALLY SIGNED> By: Fausto Royal MD, [facility] 06/29/18 1721 0759 0759 Fausto Royal MD, [facility] /EPI
[~2018-06-29 07:27] MED LIST changes: +ACETAMINOP160 MG/5 M PER TUBE; +ATIVAN0.5 MG PER TUBE; +Acetaminophen PER TUBE; +IPRAT-ALBUT 0.5-3 ML INH; +LEVAQUIN 500 M500 M2 PO; +NORCO 7.5-3251 EACH PER TUBE; +PAXIL10 MG PER TUBE; +PREDNISONE 20 M20 MG PO; +REGLAN 10 MG TA10 MG PER TUBE; +VANCO 1.251.25 GM/15 IV
[2018-06-29 08:19] LABS: ABSOLUTE NEUTROPHILS 10.1 thou/uL (1.4-8.2); BASOPHILS 0.3 % (0.0-2.0); HEMATOCRIT 30.6 % (42.0-52.0); HEMOGLOBIN 9.9 gm/dL (14.0-18.0); LYMPHOCYTES 6.8 % (24.0-44.0); MCH 27.9 pg (26.0-34.0); MCHC 32.3 g/dL (28.0-37.0); MCV 86.3 fL (80.0-100.0); MONOCYTES 7.8 % (1.0-8.0); PLATELET COUNT 399 thou/uL (150-400); POLYS 84.1 % (36.0-66.0); RBC 3.55 mil/uL (4.50-6.00); RDW 15.6 % (10.5-14.5)
[2018-06-29 08:30] LABS: URINE BILIRUBIN NEGATIVE (Negative); URINE BLOOD 3+ (Negative); URINE CLARITY CLOUDY; URINE COLOR YELLOW; URINE GLUCOSE-RANDOM* NEGATIVE (Negative); URINE KETONES NEGATIVE (Negative); URINE PROTEIN (DIPSTICK) 1+ (Negative); URINE SPECIFIC GRAVITY >= 1.030 (1.005-1.035); URINE UROBILINOGEN 0.2 E.U./dl (0.2-1.0)
[2018-06-29 08:32] LABS: URINE LEUKOCYTES-REFLEX TRACE (Negative); URINE NITRITE-REFLEX POSITIVE (Negative)
[2018-06-29 08:32] LABS: ANION GAP < 0 mmol/L (7-16); BUN 13 mg/dL (7-18); CALCIUM 8.5 mg/dL (8.5-10.1); CHLORIDE 86 mmol/L (98-107); CO2 38 mmol/L (21-32); CREATININE 0.8 mg/dL (0.7-1.3); GLUCOSE 141 mg/dL (74-106); POTASSIUM 4.9 mmol/L (3.5-5.1); SODIUM 120 mmol/L (136-145)
[2018-06-29 08:37] LABS: ALBUMIN 2.1 g/dL (3.4-5.0); DIRECT BILIRUBIN < 0.1 mg/dL (<0.1-0.3); LIPASE 94 U/L (73-393); SGOT 33 U/L (15-37); SGPT 16 U/L (30-65); TOTAL BILIRUBIN 0.2 mg/dL (<0.1-1.0); TOTAL PROTEIN 8.1 g/dL (6.4-8.2)
[2018-06-29 09:05] LABS: CASTS None Seen /LPF (None Seen); SQUAMOUS None Seen /LPF (0-3)
[2018-06-29 09:07] LABS: BACTERIA-REFLEX >30 Many /HPF (None Seen); CALCIUM OXALATE 0-3 Few /LPF (None Seen)
[2018-06-29] MEDS ORDERED: AUGMENTIN250 MG/5 M PER TUBE (10:41)
== END 2018-06-29 12:00 ==
LOC: ER 07:27
PROVIDERS: Emergency Medicine
DX: R09.02 Hypoxemia (principal); N39.0 Urinary tract infection, site not specified; Z99.11 Dependence on respirator [ventilator] status; J44.9 Chronic obstructive pulmonary disease, unspecified; I48.91 Unspecified atrial fibrillation; I10 Essential (primary) hypertension; F41.9 Anxiety disorder, unspecified; N40.0 Benign prostatic hyperplasia without lower urinary tract symptoms

== ENCOUNTER 2018-08-14 00:18 | Inpatient (IN) | payer OTHER, MEDICAID ==
[~2018-08-14] VITALS: Ht 190.5 cm; Wt 57.7 kg
[2018-08-14] VITALS (29 sets, daily range): BP systolic 86–161; BP diastolic 56–89
--- NOTE | ~2018-08-14 | HC ---
[facility] [place] [place] [address] CONSULTATION Name: JINNY BURT Elly Room #: 236-P [facility] IN ..#: [id number] Admission: 08/14/18 Attend Phys: Devonte Awad MD Discharge: 08/17/18 Date of : 48 Report #: [id number] THIS REPORT FOR: //name// CC: Clayton Vital DATE OF SERVICE: 08/17/2018 FINAL DIAGNOSES: 1. Healthcare-associated pneumonia. 2. Tracheostomy dependence. 3. Chronic obstructive pulmonary disease. 4. Emphysema. 5. Chronic ventilator dependence. 6. Chronic colonic ileus. 7. Anemia of chronic disease. 8. Hyponatremia. HOSPITAL COURSE: The patient was admitted with tracheostomy problems from his long-term care facility. Pulmonary and ENT services assessed him and felt that his trach is very positional dependent and recommended a Bivona extra-long trach, which was changed out. Following this, he had no further respiratory difficulties, maintaining volumes or saturations. Chest x-ray was showing diffuse pneumonia. He has had a known history of MRSA and therefore was treated with vancomycin along with Zosyn and Levaquin. Cultures are still pending at the time of discharge, but initial sputum culture was showing gram-positive cocci. Sodium corrected with adjustment of his free water flush. Tube feeding was reinitiated and other home medications. He has had a known chronic abdominal distention with ileus, but he does have active bowel sounds and is having regular bowel movements. PHYSICAL EXAMINATION: On the day of discharge: GENERAL: He is resting on the vent comfortably. VITAL SIGNS: Pulse 80, sats 95%, blood pressure 109/67. LUNGS: Distant but clear. HEART: Regular. ABDOMEN: Protuberant, soft, normoactive bowel sounds. EXTREMITIES: No edema. DISPOSITION: He is discharged back to [facility] long-term care facility on full ventilator care with no plans of weaning, tube feeding with water flushes, lab [facility] [address] [place] [address] CONSULTATION Name: JINNY BURT Room #: 236-P [facility].#: [id number] Admission: 08/14/18 Attend Phys: Devonte Awad MD Discharge: 08/17/18 Date of : 48 Report #: [id number] work including vancomycin trough in 2 days and then weekly. Resume usual medicines plus vancomycin, Zosyn and Levaquin for 14 days. By: 1214 1703 Devonte Awad MD /nt
--- NOTE | ~2018-08-14 | EKG ---
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: IVANNA NICHOLSON : 1950 Requested By: Rut Oliva Order Number: [id number] MD: Gavin Looney Measurements Intervals [place] Rate: 87 P: 57 AR: 172 QRS: -36 QRSD: 93 T: 89 QT: 407 QTc: 490 Interpretive Statements Sinus rhythm Left axis deviation Anteroseptal infarct, old Nonspecific ST/T abnormalities Compared to ECG 06/29/2018 07:59:27 no significant changes Electronically Signed On 08-14-2018 23:45:15 OFFSET PLATE PREPARATION SUPERVISOR by Gavin Looney [email or web address] <ELECTRONICALLY SIGNED> By: Gavin Looney MD 08/14/18 5045 0044 0044 Gavin Looney MD /EPI
--- NOTE | ~2018-08-14 | HC ---
[facility] [place] [address] CONSULTATION Name: JINNY BURT Room #: 236-P [facility] IN ..#: [id number] Admission: 08/14/18 Attend Phys: Devonte Awad MD Discharge: Date of : 48 Report #: [id number] THIS REPORT FOR: //name// CC: Clayton Vital DATE OF SERVICE: 08/15/2018 REASON FOR CONSULTATION: Leaking tracheostomy tube. HISTORY OF PRESENT ILLNESS: The patient is a 67-year-old male who has had problems with his trach tube leaking. He was at [facility] up until yesterday. He had his trach tube changed there and continued to have problems with shortness of breath. He had a chest x-ray showing bilateral pneumonia. He was admitted to the hospital and placed on IV antibiotics. He has improved, but he continues to have problems with his trach leaking. PAST MEDICAL HISTORY: Significant for COPD, emphysema, vent-dependent tracheotomy, PEG tube, hypertension, atrial fibrillation, constipation, colonic ileus, urinary retention, pneumothorax, hemoptysis. FAMILY HISTORY: Noncontributory. SOCIAL HISTORY: He has chronic use of tobacco, currently is not using it. Not using alcohol. ALLERGIES: None. MEDICATIONS: See his MAR. REVIEW OF SYSTEMS: Currently is noncontributory. He is improved and does not feel short of breath at the moment. PHYSICAL EXAMINATION: He is a well-developed male, in no apparent distress. He is resting comfortably, supine in his bed. He has very stiff neck and does not extend or flex his neck very well. He is somewhat cachectic. He has a little bit of granulation around his tracheotomy wound superiorly, but there was no evidence of active bleeding. He has #6 tracheotomy tube that is in place with a low pressure cuff and that has been hyperinflated. A flexible fiberoptic bronchoscopy was performed through the existing tracheotomy tube. With manipulation of the tube, reveals that the trachea is dilated and when it is posterior or to the right side, then it comes up against the posterior wall of the right tracheal wall. The tracheotomy tube is exchanged for a foam cuff #7 Bivona tube. Again, flexible fiberoptic bronchoscopy was performed through the tube after the exchange revealing that the distal tip to the tube is [facility] [address] [place] [address] CONSULTATION Name: JINNY BURT Elly Room #: 236-[facility] IN [facility].#: [id number] Admission: 08/14/18 Attend Phys: Devonte Awad MD Discharge: Date of : 48 Report #: [id number] approximately 5 cm above the cj or more. It does appear to fill the void in the trachea where the expansion has occurred and he is getting good air volumes back with no immediate complication. There is little bit of bleeding around the tracheotomy wound from the exchange. The patient tolerated the procedure well with maintaining/saturations in the 90s. IMPRESSION: Tracheal dilation with an existing tracheotomy tube. PLAN: The tracheotomy tube was changed to a foam-cuffed Bivona with good airway exchange. If this is unsuccessful or he continues to have problems with significant air leak, then the next step would be a distal extension to a #6 Shiley tracheotomy tube. By: 1644 [id number] Leonides Jo MD /nt
--- NOTE | ~2018-08-14 | H ---
[facility] [place] [place] [address] HISTORY AND PHYSICAL Name: JINNY BURT Room #: 236-P [facility] IN M.R.#: [id number] Admission: 08/14/18 Attend Phys: Devonte Awad MD Discharge: Date of : 48 Report #: [id number] THIS REPORT FOR: //name// CC: Clayton Vital DATE OF SERVICE: 08/14/2018 CHIEF COMPLAINT: Shortness of breath. HISTORY OF PRESENT ILLNESS: The patient is a 67-year-old gentleman from [facility] sent to the Emergency Room with shortness of breath. He has a 2-year history of chronic hypercapnic hypoxic respiratory failure, requiring chronic ventilator treatment with tracheostomy tube in place. He has failed ventilator weaning on multiple attempts. He has had a history of MRSA pneumonia, significant hemoptysis related to pneumonia and previous tracheal bleed. The nursing center called yesterday stating that his trach cuff was leaking and he was de-satting. The respiratory therapist changed the trach, but following this, he was having difficulty with low tidal volumes and desaturations with shortness of breath on the ventilator. Chest x-ray showed bilateral pneumonia. Multiple attempts at repositioning the trach and treatments failed, and therefore, he was sent to the Emergency Room. There he was stabilized with breathing treatments and the initiation of antibiotics. PAST MEDICAL HISTORY: Chronic hypercapnic hypoxic respiratory failure, COPD with, I believe, emphysematous changes on the lung, tracheostomy and vent dependent. He has a PEG tube, hypertension, paroxysmal AFib, constipation, chronic colonic ileus, urinary retention, history of pneumothorax and history of hemoptysis from MRSA pneumonia. He also has had tracheal bleed, requiring surgical intervention approximately a year ago. PAST SURGICAL HISTORY: As above. FAMILY HISTORY: Noncontributory. SOCIAL HISTORY: Chronic tobacco use. Denies chronic alcohol use. ALLERGIES: None. MEDICATIONS: DuoNebs, hydrocodone, Ativan, prednisone, amiodarone and Paxil. REVIEW OF SYSTEMS: He denies currently shortness of breath or chest pain. He is complaining of some abdominal discomfort. PHYSICAL EXAMINATION: [facility] [address] [place] [address] HISTORY AND PHYSICAL Name: JINNY BURT Room #: 236-P [facility] IN [facility]#: [id number] Admission: 08/14/18 Attend Phys: Devonte Awad MD Discharge: Date of : 48 Report #: [id number] VITAL SIGNS: Temperature 36.7, pulse 76, respirations 15, blood pressure 93/65 and O2 sat 97% on the ventilator. GENERAL: He is awake and alert, in no distress. HEAD AND NECK: Unremarkable. Trach in place. LUNGS: Clear. HEART: Regular. ABDOMEN: Protuberant, soft. Normoactive bowel sounds. PEG in place. EXTREMITIES: No cyanosis, clubbing or edema. He has muscle atrophy throughout. NEUROLOGIC: He moves all extremities equally, follows basic commands and is able to communicate. LABORATORY DATA: ABG, x-ray reviewed. Pertinent findings include venous CO2 of 44. Chest x-ray shows bilateral pneumonia. ASSESSMENT: 1. Healthcare-associated pneumonia. 2. Chronic hypercapnic hypoxic respiratory failure. 3. Chronic compensated respiratory acidosis. 4. Severe chronic obstructive pulmonary disease. 5. Emphysema. 6. Paroxysmal atrial fibrillation. 7. History of hemoptysis. 8. History of methicillin-resistant Staphylococcus aureus pneumonia. 9. History of tracheal bleed. 10. Chronic colonic ileus. 11. Anemia of chronic disease. 12. Hyponatremia. 13. Tracheostomy complications. PLAN: For now, he will be treated with antibiotic therapy and ICU care. Resume medicines and tube feeding and diet as tolerated. I have asked Dr. Vital to assess him. He has had a similar episode with his tracheostomy tube in the past and, I believe, he required an extra-long tracheal tube. We will see what Dr. Vital has after his assessment and consideration for need of ENT if he feels this is warranted. He is non-weanable and therefore chronic ventilator care is planned to continue and he will return to [facility] once tracheostomy issues are resolved. <ELECTRONICALLY SIGNED> By: Devonte Awad MD 08/15/18 1010 0812 1013 Devonte Awad MD /nt
[~2018-08-14 00:18] MED LIST changes: +AUGMENTIN250 MG/5 M PER TUBE
[2018-08-14 00:58] LABS: BASOPHILS 0.4 % (0.0-2.0); EOSINOPHILS 0.3 % (0.0-3.0); HEMOGLOBIN 9.4 gm/dL (14.0-18.0); LYMPHOCYTES 9.3 % (24.0-44.0); MCHC 32.6 g/dL (28.0-37.0); PLATELET COUNT 457 thou/uL (150-400); RBC 3.49 mil/uL (4.50-6.00); RDW 15.8 % (10.5-14.5); WBC 11.3 thou/uL (4.0-11.0)
[2018-08-14 01:05] LABS: ANION GAP < 0 mmol/L (7-16); BUN 14 mg/dL (7-18); CALCIUM 8.7 mg/dL (8.5-10.1); CHLORIDE 88 mmol/L (98-107); CO2 44 mmol/L (21-32); CREATININE 0.6 mg/dL (0.7-1.3); GLUCOSE 76 mg/dL (74-106); POTASSIUM 4.4 mmol/L (3.5-5.1); SODIUM 128 mmol/L (136-145)
[2018-08-14 01:12] LABS: BE(vivo) 15.8 mmol/L (-2 to +3); HCO3 42.3 mmol/L (22.0-26.0); PCO2 63.4 mmHg (35.0-45.0); PO2 90.4 mmHg (80.0-100.0); pH 7.442 (7.360-7.450); sO2 96.9 % (92.0-98.0)
[2018-08-14] MEDS ORDERED: JEVITY 1.5 CAL237 ML PER TUBE ×2 (04:01→04:03)
[2018-08-15] VITALS (25 sets, daily range): BP systolic 99–151; BP diastolic 58–91
[2018-08-15 08:00] LABS: HEMATOCRIT 26.7 % (42.0-52.0); HEMOGLOBIN 8.6 gm/dL (14.0-18.0); MCH 26.7 pg (26.0-34.0); MCV 83.5 fL (80.0-100.0); RBC 3.2 mil/uL (4.50-6.00); RDW 15.9 % (10.5-14.5); WBC 11.5 thou/uL (4.0-11.0)
[2018-08-15 08:09] LABS: ANION GAP < 0 mmol/L (7-16); BUN 19 mg/dL (7-18); CALCIUM 8.6 mg/dL (8.5-10.1); CHLORIDE 92 mmol/L (98-107); CO2 39 mmol/L (21-32); CREATININE 0.7 mg/dL (0.7-1.3); GLUCOSE 97 mg/dL (74-106); POTASSIUM 4.5 mmol/L (3.5-5.1); SODIUM 129 mmol/L (136-145)
[2018-08-16] VITALS (24 sets, daily range): BP systolic 90–128; BP diastolic 57–88
[2018-08-16 05:48] LABS: HEMATOCRIT 27.5 % (42.0-52.0); HEMOGLOBIN 8.6 gm/dL (14.0-18.0); MCH 26.2 pg (26.0-34.0); MCHC 31.2 g/dL (28.0-37.0); MCV 84.1 fL (80.0-100.0); RBC 3.28 mil/uL (4.50-6.00); RDW 15.6 % (10.5-14.5); WBC 12.6 thou/uL (4.0-11.0)
[2018-08-16 06:04] LABS: ANION GAP < 0 mmol/L (7-16); BUN 18 mg/dL (7-18); CALCIUM 8.7 mg/dL (8.5-10.1); CHLORIDE 94 mmol/L (98-107); CO2 39 mmol/L (21-32); CREATININE 0.7 mg/dL (0.7-1.3); GLUCOSE 104 mg/dL (74-106); POTASSIUM 4.5 mmol/L (3.5-5.1); SODIUM 131 mmol/L (136-145)
[2018-08-17] VITALS (16 sets, daily range): BP systolic 109–135; BP diastolic 67–81
[2018-08-17 05:06] LABS: CALCIUM 8.7 mg/dL (8.5-10.1); CREATININE 0.6 mg/dL (0.7-1.3); POTASSIUM 4.4 mmol/L (3.5-5.1)
[2018-08-17 05:11] LABS: HEMATOCRIT 24.9 % (42.0-52.0); HEMOGLOBIN 7.9 gm/dL (14.0-18.0); MCH 26.8 pg (26.0-34.0); MCHC 31.8 g/dL (28.0-37.0); MCV 84.1 fL (80.0-100.0); RBC 2.96 mil/uL (4.50-6.00); RDW 15.7 % (10.5-14.5); WBC 11.2 thou/uL (4.0-11.0)
[2018-08-17] MEDS ORDERED: VANCO 1.251.25 GM/15 IV (12:07)
[2018-08-17] MEDS ORDERED: ZOSYN 3.3753.375 GM IV (12:08)
[2018-08-17] MEDS ORDERED: PREDNISONE 20 M20 M1 PER TUBE (12:08)
[2018-08-17] MEDS ORDERED: LEVAQUIN 750 M750 MG PO (12:09)
== END 2018-08-17 16:03 | DRG 208 ==
LOC: ER 00:18 → ICU 01:55 → EROBS 01:55 → ICU 02:32
PROVIDERS: Emergency Medicine; Internal Medicine Geriatric Medicine
PROC: 5A1945Z Respiratory Ventilation, 24-96 Consecutive Hours (ICD-10-PCS; principal; 2018-08-14)
DX: J18.9 Pneumonia, unspecified organism (principal); J96.21 Acute and chronic respiratory failure with hypoxia; J96.22 Acute and chronic respiratory failure with hypercapnia; K56.7 Ileus, unspecified; E87.1 Hypo-osmolality and hyponatremia; Z99.11 Dependence on respirator [ventilator] status; E87.2 Acidosis; N40.0 Benign prostatic hyperplasia without lower urinary tract symptoms; I10 Essential (primary) hypertension; Y95 Nosocomial condition; F41.9 Anxiety disorder, unspecified; J43.9 Emphysema, unspecified; I48.0 Paroxysmal atrial fibrillation; D63.8 Anemia in other chronic diseases classified elsewhere; E87.8 Other disorders of electrolyte and fluid balance, not elsewhere classified; Z93.0 Tracheostomy status; Z86.14 Personal history of Methicillin resistant Staphylococcus aureus infection; Z79.899 Other long term (current) drug therapy; Z23 Encounter for immunization
CPT/HCPCS: 10078

== ENCOUNTER 2019-02-18 20:08 | Inpatient (IN) | payer OTHER, MEDICAID ==
[~2019-02-18] VITALS: Ht 152.4 cm; Wt 64.9 kg
--- NOTE | ~2019-02-18 | H ---
[facility] [place] [address] HISTORY AND PHYSICAL Name: JINNY BURT Room #: 238-P ADM IN M.R.#: [id number] Admission: 02/18/19 ������������������ Attend Phys: Maricarmen Mario Discharge: ������������������ Date of : 48 Report #: [id number] THIS REPORT FOR: //name// CC: Clayton Crouch DATE OF SERVICE: 02/18/2019 ATTENDING PHYSICIAN: Dr. Clayton Crouch. CHIEF COMPLAINT: Respiratory failure and being unresponsive. HISTORY OF PRESENT ILLNESS: The patient is a 68-year-old gentleman with known history of chronic respiratory failure, on a ventilator, who was noted to be poorly responsive and requiring increased oxygen concentration. The patient was transferred to [facility] where he was evaluated and noted to have possible pneumonia. The patient has now been admitted to the hospital and is in the Intensive Care Unit. The patient is responding some and moving his upper extremities. He continues to have his chronic tremors. The patient is on IV antibiotics and was noted to have elevation of his potassium. PAST MEDICAL HISTORY: Significant for history of chronic respiratory failure, who has been on ventilator with tracheostomy. Hypertension, chronic atrial fibrillation, COPD, emphysema, chronic constipation, anxiety, urinary retention. He is not known to be on medication. CURRENT MEDICATIONS: DuoNeb nebulizer treatment, hydrocodone p.r.n., Tylenol p.r.n., lorazepam and prednisone 20 mg daily, amiodarone, Paxil and MiraLax. SOCIAL HISTORY: Not defined. REVIEW OF SYSTEMS: Not possible. PHYSICAL EXAMINATION: GENERAL: Elderly gentleman who was resting in bed. He was on the ventilator. He was somewhat responsive to his name, was moving his upper extremities. There were continuous tremors of his upper extremities. HEENT: There was mild pallor. Mucosa was moist. LUNGS: Coarse breath sounds bilaterally. There were some localized crackles in the lung bases. HEART: First and second heart sound, which was irregular. ABDOMEN: Soft. There was mild distention. It was nontender. Bowel sounds were sluggish. EXTREMITIES: The patient had contractures of his upper extremities, and there were tremors. There was proximal muscle weakness noted. LABORATORY DATA: On admission showed a pH of 7.39, pCO2 of 78, pO2 of 141, [address] [address] HISTORY AND PHYSICAL Name: JINNY BURT Room #: 238-P [facility] IN .R.#: [id number] Admission: 02/18/19 ������������������ Attend Phys: Maricarmen Mario Discharge: ������������������ Date of : 48 Report #: [id number] bicarbonate was 46, oxygen saturation 98%, FiO2 was 60%. White cell count was 23.1, hemoglobin 7.5, hematocrit 23.8 and a platelet count of 305. Sodium was 131, potassium 5.9, chloride of 89, bicarb of greater than 45, BUN was 19, creatinine of 0.7. Calcium was 8.0. Chest x-ray showed prominent pulmonary vascularity, and there were left lung opacities with chronic lung changes of COPD. CT of the abdomen showed evidence of large amount of stool in the large bowel. There was no evidence of small-bowel obstruction or any acute process. ASSESSMENT: 1. Respiratory failure. 2. Pneumonia, hospital acquired. 3. Anemia. 4. Hypokalemia. 5. Constipation. 6. Chronic obstructive pulmonary disease. 7. History of atrial fibrillation. PLAN: To continue on his antibiotics. We will have infectious disease consultation and consult Pulmonary for his vent management and continue his other medications. We will try and get his constipation resolved. ��������������������������������������������� ���������������������������������������� By: ��������������������������������������������� 0902 0946 Cory Collier MD /nt
[~2019-02-18 20:08] MED LIST changes: +JEVITY 1.5 CAL237 ML PER TUBE; +LEVAQUIN 750 M750 MG PO; +PREDNISONE 20 M20 M1 PER TUBE
[2019-02-18 20:09] VITALS: BP 122/73
[2019-02-18 20:48] LABS: URINE BILIRUBIN NEGATIVE (Negative); URINE BLOOD 2+ (Negative); URINE CLARITY CLOUDY; URINE COLOR YELLOW; URINE GLUCOSE-RANDOM* NEGATIVE (Negative); URINE KETONES NEGATIVE (Negative); URINE NITRITE-REFLEX NEGATIVE (Negative); URINE PROTEIN (DIPSTICK) TRACE (Negative); URINE SPECIFIC GRAVITY >= 1.030 (1.005-1.035); URINE UROBILINOGEN 0.2 E.U./dl (0.2-1.0)
[2019-02-18 20:54] LABS: HEMATOCRIT 27.5 % (42.0-52.0); HEMOGLOBIN 8.5 gm/dL (14.0-18.0); MCH 27.4 pg (26.0-34.0); MCHC 31.1 g/dL (28.0-37.0); MCV 88.1 fL (80.0-100.0); PLATELET COUNT 351 thou/uL (150-400); RBC 3.12 mil/uL (4.50-6.00); RDW 14.2 % (10.5-14.5)
[2019-02-18 20:59] LABS: URINE LEUKOCYTES-REFLEX 1+ (Negative)
[2019-02-18 21:01] LABS: CASTS None Seen /LPF (None Seen); MUCUS 4-6 Moderate strn/LPF (None Seen); SQUAMOUS 0-3 Few /LPF (0-3); TRANSITIONAL EPITHEL CELL 0-3 Few /LPF (None Seen)
[2019-02-18 21:02] LABS: BACTERIA-REFLEX >30 Many /HPF (None Seen); CRYSTALS None Seen /LPF (None Seen); WBC CLUMPS Few (None Seen)
[2019-02-18 21:03] LABS: BE(vivo) 14.6 mmol/L (-2 to +3); HCO3 44.3 mmol/L (22.0-26.0); PO2 125.3 mmHg (80.0-100.0); pH 7.284 (7.360-7.450); sO2 97.8 % (92.0-98.0)
[2019-02-18 21:04] LABS: PCO2 95.5 mmHg (35.0-45.0)
[2019-02-18 21:32] LABS: ALBUMIN 1.4 g/dL (3.4-5.0); ANION GAP 1 mmol/L (7-16); BUN 20 mg/dL (7-18); CHLORIDE 85 mmol/L (98-107); CO2 38 mmol/L (21-32); CREATININE 0.7 mg/dL (0.7-1.3); GLUCOSE 111 mg/dL (74-106); LIPASE 45 U/L (73-393); SGOT 37 U/L (15-37); SGPT 19 U/L (30-65); SODIUM 124 mmol/L (136-145); TOTAL BILIRUBIN 0.1 mg/dL (<0.1-1.0); TOTAL PROTEIN 9.2 g/dL (6.4-8.2); TROPONIN-I <0.06 ng/mL (<0.06)
[2019-02-18 21:49] LABS: ABSOLUTE NEUTROPHILS 23.5 thou/uL (1.4-8.2)
[2019-02-18] MEDS ORDERED: MIRALAX17 G1 PO (22:15)
[2019-02-18] MEDS ORDERED: BISACODYL SUPP10 MG RECTAL (22:18)
[2019-02-18 23:16] VITALS: BP 130/67
--- NOTE | 2019-02-18 23:17 | NUR ---
HAND OFF TOOL PRINTED TO 3W
[2019-02-18 23:24] LABS: BE(vivo) 18.6 mmol/L (-2 to +3); HCO3 47.6 mmol/L (22.0-26.0); PO2 77.9 mmHg (80.0-100.0); sO2 93.5 % (92.0-98.0)
--- NOTE | 2019-02-18 23:24 | NUR ---
HAND OFF TOOL SENT TO ICU AT THIS TIME
[2019-02-18 23:25] LABS: PCO2 94.3 mmHg (35.0-45.0); pH 7.321 (7.360-7.450)
[2019-02-19] VITALS (47 sets, daily range): BP systolic 106–148; BP diastolic 56–87
--- NOTE | 2019-02-19 01:00 | NUR ---
68 Y/O MALE PT ADMITTD TO ICU FROM ER AND [facility]. CHRONIC TRACH AND VENT FOLLOWS SIMPLE COMMANDS. NODS APPROP DENIES PAIN. ARMS VERY CONTRACTURED, VERY FOUL SMELLING URINE. COMPLETE BED BATH GIVEN. CHRONIC AFIB. SUCTIONED FOR A LARGE AMT THICK BEIGE SPUTUM. WILL CONT TO MONITOR
[2019-02-19 04:58] LABS: HEMATOCRIT 23.8 % (42.0-52.0); HEMOGLOBIN 7.5 gm/dL (14.0-18.0); MCH 28.2 pg (26.0-34.0); MCHC 31.7 g/dL (28.0-37.0); PLATELET COUNT 305 thou/uL (150-400); RBC 2.67 mil/uL (4.50-6.00); RDW 14.1 % (10.5-14.5); WBC 23.1 thou/uL (4.0-11.0)
[2019-02-19 05:19] LABS: ALBUMIN 1.4 g/dL (3.4-5.0); BUN 19 mg/dL (7-18); CHLORIDE 89 mmol/L (98-107); CREATININE 0.7 mg/dL (0.7-1.3); GLUCOSE 76 mg/dL (74-106); POTASSIUM 5.9 mmol/L (3.5-5.1); SGOT 31 U/L (15-37); SGPT 18 U/L (30-65); SODIUM 131 mmol/L (136-145); TOTAL BILIRUBIN 0.2 mg/dL (<0.1-1.0); TOTAL PROTEIN 7.9 g/dL (6.4-8.2)
[2019-02-19 05:20] LABS: CO2 > 45 mmol/L (21-32)
[2019-02-19 05:49] LABS: HCO3 46.4 mmol/L (22.0-26.0); PO2 141.1 mmHg (80.0-100.0); pH 7.392 (7.360-7.450); sO2 98.6 % (92.0-98.0)
--- NOTE | 2019-02-19 06:00 | NUR ---
REMAINS TRACHED AND VENTED. LUNGS COARSE BILAT. CONT TO KRISHNA AND NODS APPROP 800 CC UO THIS SHIFT. SKIN INTACT. WILL CONT TO MONITOR
[2019-02-19 06:14] LABS: ABSOLUTE NEUTROPHILS 22.6 thou/uL (1.4-8.2)
[2019-02-19 06:15] LABS: HYPOCHROMASIA 2+; PLATELET ESTIMATE NORMAL
--- NOTE | 2019-02-19 13:30 | NUR ---
PORTABLE CHEST XRAY COMPLETED TO CONFIRM NG PLACEMENT. TAP WATER ENEMA 1,000CC GIVEN IN 3 SEPARATE ENEMAS. INITIALLY CLEAR, THEN WITH FOLLOWING 2 ENEMAS BROWN LIQUID OBTAINED. NO VISIBLE STOOL. PRASHANT LOWER ABD SOFTER TO TOUCH. ALL WELL TOLERATED. SR, TOLERATING TRACH ON VENT, THICK WHITE SECRETIONS, IV PAIN MED GIVEN WITH DECREASE OR RELIEF OF PAIN MEDS, NPO, PEG TO LWIS WITH CLEAR DRAINAGE, ZAVALETA WITH ADEQUATE URINE OUTPUT. SEE ASSESSMENTS FOR FURTHER DETAILS.
[2019-02-20] VITALS (42 sets, daily range): BP systolic 99–134; BP diastolic 43–87
--- NOTE | 2019-02-20 04:00 | NUR ---
PT HAD A LARGE SOFT BROWN STOOL. BATHED AND REPOSITIONED.
[2019-02-20 04:55] LABS: HEMATOCRIT 23.3 % (42.0-52.0); HEMOGLOBIN 7.2 gm/dL (14.0-18.0); MCH 27.3 pg (26.0-34.0); MCV 88.1 fL (80.0-100.0); PLATELET COUNT 345 thou/uL (150-400); RBC 2.64 mil/uL (4.50-6.00); RDW 14.2 % (10.5-14.5); WBC 22.4 thou/uL (4.0-11.0)
[2019-02-20 05:10] LABS: ALBUMIN 1.3 g/dL (3.4-5.0); ANION GAP < 0 mmol/L (7-16); BUN 23 mg/dL (7-18); CALCIUM 7.8 mg/dL (8.5-10.1); CHLORIDE 96 mmol/L (98-107); CO2 38 mmol/L (21-32); CREATININE 0.7 mg/dL (0.7-1.3); GLUCOSE 83 mg/dL (74-106); SGOT 30 U/L (15-37); SGPT 16 U/L (30-65); SODIUM 133 mmol/L (136-145); TOTAL BILIRUBIN 0.2 mg/dL (<0.1-1.0); TOTAL PROTEIN 7.7 g/dL (6.4-8.2)
[2019-02-20 05:26] LABS: ABSOLUTE NEUTROPHILS 21.1 thou/uL (1.4-8.2); MYELOCYTES 1 %
[2019-02-20 05:26] LABS: BE(vivo) 11.9 mmol/L (-2 to +3); HCO3 37.7 mmol/L (22.0-26.0); PCO2 58.2 mmHg (35.0-45.0); PO2 118.4 mmHg (80.0-100.0); pH 7.429 (7.360-7.450); sO2 98.3 % (92.0-98.0)
--- NOTE | 2019-02-20 06:00 | NUR ---
PT IS AWAKE AND ALERT. FOLLOWS COMMANDS. LUNGS COARSE BILAT SUCTIONED FOR A MOD AMT THICK BEIGE SPUTUM. SKIN WARM AND DRY AFEBRILE. ARMS VERY STIFF AND CONTRACTURED. 500 CC UO THIS SHIFT. S/C FOR CT OF CHEST THIS AM. FENTANYL PRN ABDOMINAL DISCOMFORT. ONLY A SCANT AMT OF CLEAR FLUID FROM NGT AND PEG TUBE TONIGHT. BATHED. WILL CONT TO MONITOR.
--- NOTE | 2019-02-20 06:00 | NUR ---
REMAINS TRACHED AND VENTED. LARGE MAT OF CLEAR SECTRETIONS FROM AROUND TRACH SITE.
--- NOTE | 2019-02-20 08:43 | EKG ---
[address] [address] ELECTROCARDIOGRAM REPORT Name: DONNA BURTMARY Sanabria Room #: 238-P ADM IN M.R.#: [id number] ������������������ Admission: 02/18/19 ������������������ Attend Phys: Maricarmen Mario Discharge: ������������������ Date of : 48 Report #: [id number] ����������������������������������������������������������������� [id number] THIS REPORT FOR: //name// [facility] ED Test Date: 2019-02-18 Test Time: 21:56:51 Pat Name: JINNY BURT Department: Room: 238 Gender: M Chro: Luz Marina Truong : 1950 Requested By: Jose Luis Grayson Order Number: [id number] MD: Palmer Dawn Measurements Intervals [place] Rate: 67 P: MA: QRS: -48 QRSD: 116 T: 79 QT: 446 QTc: 471 Interpretive Statements Normal sinus rhythm. Artifact in all leads. Left anterior fascicular block Compared to ECG 08/14/2018 00:44:54 Electronically Signed On 02-20-2019 8:43:15 CDT by Palmer Dawn [email or web address] ��������������������������������������������� <ELECTRONICALLY SIGNED> ���������������������������������������� By: Palmer Dawn MD ��������������������������������������������� 02/20/19 0843 [id number] Palmer Dawn MD /[facility]
--- NOTE | 2019-02-20 10:33 | NUR ---
Nutrition: When appropriate, REC resume enteral feeds of Jevity 1.5 at 50 mL/hr to meet ~100% of needs
--- NOTE | 2019-02-20 12:21 | NUR ---
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 ORDER AND CONSENT NOTED. DISSCUSSED THE PROCEDURE WELL BENIFITS AND RISK FOR DVT AND INFECTION AND HER CONFIRMED UNDERSTANDING. THE RIGHT UPPER ARM BRACHIAL WAS WIDLEY PATENT. A #5F TRIPLE LUMEN POWER PICC WAS PLACED PER HOSPITAL POLICY AFTER A BEDSIDE TIMEOUT WAS COMPLETED. PICC WAS TRIMMEDE TO 40CM AND ADVANCED WITHOUT DIFFICULTY. LINE WAS CONFIRMED TO BE IN GOOD POSITIONED BY A STAT CHEST XRAY. CUFF SLITTER NOTIFIED THE LINE WAS RELEASED FOR USE
--- NOTE | 2019-02-20 12:22 | NUR ---
INITIAL ASSESSMENT: Received consult due to pt being a resident from [facility]. FORTUNATO reviewed chart. Pt was admitted from [facility] SNF due to AMS/pneumonia/UTI/respiratory failure. Pt with hx of chronic respiratory failure. Pt is vent dependent. Pt has trach and peg tube in place. FORTUNATO discussed case with [facility] liaison who states they are able to accept pt back when he is ready for discharge. FORTUNATO met with pt at bedside. Introduced role of SW. Pt is alert/orientated. Pt able to communicate by mouthing words and nodding. Pt agreeable with returning to [facility] when medically stable. FORTUNATO asked about contacting his friend, Steffany, who is listed as his contact. Pt agreeable. FORTUNATO spoke with Steffany via phone to provide update and confirm discharge plan for pt to return to [facility] when he is medically stable. Steffany and her dtr, Giana, are pt's contacts. Pt's family is . landscape architect and planner to fax clinical updates to [facility] for review. FORTUNATO is following to assist as needed with discharge planning.
--- NOTE | 2019-02-20 19:15 | NUR ---
Pt awake almost all day and watching television. Pt reported abdominal discomfort despite pain medications. Dr Awad was notified of abdominal pain this morning and pain medicatin interval adjusted. Tube feeding initiated at end of shift per PEG. NG tube was dc'd per orders. One smear of stool. Adequate urine output. Pt had CT scan of chest done today. Report given to RN assuming care. Sinus rhythm.
[2019-02-21] VITALS (12 sets, daily range): BP systolic 104–122; BP diastolic 60–76
--- NOTE | 2019-02-21 03:18 | NUR ---
ASSESSMENT: PT REMAIN ALERT AND ORIENT TIMES TWO., DOES SHOW SOME CONFUSION TO SITUATION. VSS, AFEBRILE. VENT SETTINGS UNCHANGED, TV 470, AC 24, FI02 50% AND PEEP 6. TOLERATING VENT WELL. COPIOUS AMTS OF CLEAR SECRETIONS SUCTIONED FROM AROUND TRACH., TRACH CARE PROVIDE., ASSUMED CARE OF THIS PT AT 2345 AND AT THAT TIME PT STATE THAT HE WAS HAVING ABD PAIN BUT REFUSED PAIN MEDICATION. NO BM THUS FAR, UO MINIMAL AMTS PER ZAVALETA. PEG TUBE INTACT. PT IS SOMETIMES ABLE TO MOUTH NEEDS. SR PER MONITOR. SLOW PROGRESS TOWARDS DC GOALS,. WILL CONTINUE TO MONITOR.
--- NOTE | 2019-02-21 03:57 | NUR ---
ASSESSMENT: PT ONLY AGREED TO A PARTIAL BATH AND DID NOT WANT BACK WASHED.
[2019-02-21 04:18] LABS: CALCIUM 6.6 mg/dL (8.5-10.1); CREATININE 0.8 mg/dL (0.7-1.3); POTASSIUM 3.8 mmol/L (3.5-5.1)
[2019-02-21 04:31] LABS: RBC 2.33 mil/uL (4.50-6.00)
[2019-02-21 04:33] LABS: HEMATOCRIT 20.5 % (42.0-52.0); HEMOGLOBIN 6.6 gm/dL (14.0-18.0); MCH 28.4 pg (26.0-34.0); MCHC 32.4 g/dL (28.0-37.0); MCV 87.8 fL (80.0-100.0); RDW 14.7 % (10.5-14.5); WBC 10.3 thou/uL (4.0-11.0)
--- NOTE | 2019-02-21 10:50 | NUR ---
FAXED CLINICAL UPDATE TO [facility] LEFT MSG WITH VIJAY IN ADM THAT UPDATE FAXED. DCP TO FOLLOW.
[2019-02-21 10:51] LABS: % SATURATION 36 % (20-39); IRON 60 ug/dL (65-175); TIBC 167 ug/dL (250-450)
--- NOTE | 2019-02-21 15:07 | NUR ---
SW reviewed chart. Pt will be having a bronchoscopy per pulm. Pt may need a blood transfusion tomorrow. SW updated [facility] liaison. Plan is for pt to discharge back to [facility] when medically stable. FORTUNATO is following to assist as needed with discharge planning.
--- NOTE | 2019-02-21 19:57 | NUR ---
ASSUMED CARE OF PT AT APPROX 0700. PT IS ALERT AND ORIENTED X3, ABLE TO NOD HEAD TO YES AND NO QUESTIONS AND MOUTH OVER TRACH. MONITORED ON TELE AND ABLE TO MAINTAIN 02 SAT >90 ON VENT SETTINGS. ASSESSMENT CHARTED. BEDSIDE BRONCH PERFOREMED WITH DR. BARNARD. PT TOLERATED WELL. ZAVALETA TO DD. PT UIPDATED ON POC. MAKING GOOD PROGRESS TOWARDS POC GOALS. WILL CONT TO MONITOR.
[2019-02-22] VITALS (25 sets, daily range): BP systolic 98–139; BP diastolic 62–80
[2019-02-22 05:48] LABS: HEMATOCRIT 24.3 % (42.0-52.0)
[2019-02-22 06:00] LABS: ANION GAP < 0 mmol/L (7-16); BUN 20 mg/dL (7-18); CALCIUM 7.2 mg/dL (8.5-10.1); CHLORIDE 100 mmol/L (98-107); CO2 38 mmol/L (21-32); CREATININE 0.6 mg/dL (0.7-1.3); GLUCOSE 85 mg/dL (74-106); POTASSIUM 4.4 mmol/L (3.5-5.1); SODIUM 136 mmol/L (136-145)
--- NOTE | 2019-02-22 06:13 | NUR ---
Pt awake most of the night with stable VS and adequate SpO2 on current vent settings. PRN hydrocodone and one time dose of fentanyl given for c/o generalized pain with desired effects achieved. TF on hold for increased abdominal distention and pt kept NPO for now. Urine output adequate for shift and am lab results noted. Continue with POC.
--- NOTE | 2019-02-22 11:43 | NUR ---
VASCULAR ACCESS NURSE ROUNDING. PICC LINE CONTINUES TO BE APPROPRIATE AT THIS TIME. THIS PATIENT CONTINUES ON MULTIPLE IV MEDS INCLUSING VESICANTS AND IRRITANTS SUCH VANCOMYCIN 1,000 AND DAILY IRON INFUSIONS. WE WILL CONTINUE TO ROUND DAILY TO EVALUATE STATUS AND NEED FOR THE ACCESS
--- NOTE | 2019-02-22 16:57 | NUR ---
PT IS AWAKE AND MOUTHS WORDS ON THE VENT. COMPLAINS OF ABDOMEN PAIN DUCOLOX SUPOSITORY GIVEN. ABDOMEN IS FIRM AND DISTENDED. CLEAR LIQUID DIET HELD PLEASURE FOODS DUE TO ABDOMEN IS FIRM. NOTIFIED DR. MOLINA FOR ORDERS. SINUS RHYTHM ON THE USER EXPERIENCE RESEARCHER. LUNGS ARE COARSE TO DIMINISHED. BREATHING TREATMENTS PER RT. ZAVALETA TO DD WITH YELLOW URINE. PT IS CONTRACTED. PT WATCHES THE BASKETBALL GAME TODAY. ORAL CARE GIVEN AND SUCTION CLEAR SECREATIONS FROM PT. CALL LIGHT WITHIN REACH IF NEEEDS ASSISSTANCE.
[2019-02-23] VITALS (13 sets, daily range): BP systolic 106–136; BP diastolic 57–103
--- NOTE | 2019-02-23 05:04 | NUR ---
PT APPEARS TO BE RESTING COMFORTABLY. PT SR ON MONITOR. REMAINS ON VENT VIA TRACH AT 40% FIO2 SATS 95%. PT TUBE FEEDINGS RESTARTED AFTER ABLE TO HAVE A BM. PT TOLERATING FEED AT 20ML/HR WITH GOAL OF 40ML/HR. PT AM LABS TO BE DRAWN AND REVIEWED.
[2019-02-23 06:31] LABS: HEMATOCRIT 27.2 % (42.0-52.0); HEMOGLOBIN 8.9 gm/dL (14.0-18.0); MCHC 32.6 g/dL (28.0-37.0); RBC 3.17 mil/uL (4.50-6.00); RDW 14.9 % (10.5-14.5); WBC 10.7 thou/uL (4.0-11.0)
[2019-02-23 06:38] LABS: ANION GAP < 0 mmol/L (7-16); BUN 16 mg/dL (7-18); CALCIUM 7.6 mg/dL (8.5-10.1); CHLORIDE 96 mmol/L (98-107); CO2 37 mmol/L (21-32); CREATININE 0.6 mg/dL (0.7-1.3); GLUCOSE 79 mg/dL (74-106); SODIUM 131 mmol/L (136-145)
[2019-02-23 08:00] LABS: BE(vivo) 14.1 mmol/L (-2 to +3); HCO3 41.2 mmol/L (22.0-26.0); PO2 74.3 mmHg (80.0-100.0); pH 7.405 (7.360-7.450); sO2 94.4 % (92.0-98.0)
[2019-02-23 08:01] LABS: PCO2 67.2 mmHg (35.0-45.0)
[2019-02-23] MEDS ORDERED: MEROPENEM500 MG IV (11:18)
[2019-02-23] MEDS ORDERED: ATIVAN0.5 MG PER TUBE (11:18)
[2019-02-23] MEDS ORDERED: PULMICORT0.5 MG/21 INH (11:19)
[2019-02-23] MEDS ORDERED: MIRALAX17 GM PO (11:19)
[2019-02-23] MEDS ORDERED: PREDNISONE 20 M20 MG PO (11:20)
[2019-02-23] MEDS ORDERED: BISACODYL SUPP10 MG RECTAL (11:24)
--- NOTE | 2019-02-23 12:36 | NUR ---
DISCHARGE ORDERS RECEIVED. PATIENT DISCHARGING TO [facility]. CHART COPIED PER RANCH HAND. ORDERS FAXED TO [facility]IAISON, VERIFIED RECEIVED. [facility] TO TRANSPORT PATIENT, 1330 HOURS. FRIEND, ROXANNA NOTIFIED. UNIT RN NOTIFIED AND CONTACT NUMBER FOR REPORT PROVIDED. UNIT CM/SW AWARE.
--- NOTE | 2019-02-23 12:57 | NUR ---
DISCHARGE NOTE: SW reviewed chart and spoke with nursing and attending physician. Pt is medically stable for discharge back to [facility] today. SW updated [facility] liaison, who confirms they are able to take pt back today. information systems planner coordinated ambulance for 1330 via [facility] and notified pt's family. Chart copy ordered. Nursing to call report. No additional SW needs identified at this time, but is available to assist should needs arise.
--- NOTE | 2019-02-23 13:13 | NUR ---
PT TRANSFERED TO [facility] AND REPORT GIVEN AND PT CLEANED UP PRIOR TO LEAVE. CHART COPY WITH PT PRIOR TO TRANSFER. NO ISSUES OR CONCERNS NOTED. TRNASPORTED ON TO CART. AND PT'S CHART WITH PT. VITALS STABLE PRIOR TO TRANSPORT
--- NOTE | 2019-02-23 16:06 | PATH ---
[facility] [address] [place] [address] PATHOLOGY RPT PROCEDURE Name: JINNY BURT Room #: 238-P ADM IN M.R.#: [id number] ������������������ Admission: 02/18/19 ������������������ Date of : 48 Discharge: Report #: [id number] Path Case #: [id number] Note [facility] Accession Number: [id number] TESTS RESULT FLAG UNITS REF RANGE LAB Clinician Provided Cytology Information No. of containers..01 Other (Miscellaneous) Source: MICRO BRUSH TIP LLL DIAGNOSIS: 02 MICRO BRUSH TIP LLL NEGATIVE FOR MALIGNANT CELLS. REACTIVE CELLULAR CHANGES NOTED. Pathologist ICD10: 02 J18.9 Signed out by: 02 Gillian Womack MD, Pathologist NPI- [id number] Performed by: 01 Shilpi Bernabe Patrol Agent (ASCJoseph) FLAG LEGEND: L-Low Normal,H-High Normal,LL-Alert Low,HH-Alert High <-Panic Low,>-Panic High,A-Abnormal,AA-Critical Abnormal Performed at: [address] [place] [address] Chao Morse MD, [address] [address] Gillian Womack MD, Specimen Comment: A courtesy copy of this report has been sent to Specimen Comment: [phone], . Specimen Comment: Report sent to DR BARNARD / DR MOLINA Specimen Comment: Report sent to Performed at: [address], [place], [place] [id number] MD Chao Morse MD Phone: [phone]
--- NOTE | 2019-02-23 19:46 | HC ---
[facility] [place] [address] CONSULTATION Name: JINNY BURT Elly Room #: 238-P [facility] IN M.R.#: [id number] Admission: 02/18/19 ������������������ Attend Phys: Maricarmen Mario Discharge: 02/23/19 ������������������ Date of : 48 Report #: [id number] THIS REPORT FOR: //name// CC: Clayton Crouch DATE OF SERVICE: 02/19/2019 INFECTIOUS DISEASES CONSULTATION REASON FOR CONSULTATION: Evaluate concerning pneumonia, urinary tract infection and sepsis. HISTORY OF PRESENT ILLNESS: The patient is a 68-year-old, with underlying advanced COPD, who is ventilator dependent with tracheostomy, residing at [facility]. Admitted today with a change in mental status, lethargy, hypoxia, found to have left lung pneumonia and evidence of cystitis. He has been diaphoretic and more lethargic. There has been no chest pain. No increased tracheal secretions or hemoptysis. He is now on 60% FiO2. His chest x-ray showed a fairly dense infiltrate in the left lung, this was from the Emergency Room. Subsequent x-ray shows improvement in that region. He has been treated now with vancomycin and Zosyn. There has been no gross aspiration. No diarrhea. Has a tracheostomy, PEG tube, indwelling Hancock catheter and peripheral IV in place. REVIEW OF SYSTEMS: A 10-point review of systems is negative other than what has been described above. He is bedbound. ALLERGIES: None. MEDICATIONS: As noted on his MAR including vancomycin and Zosyn. 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 FAMILY HISTORY: Noncontributory. SOCIAL HISTORY: General debility, care home resident, nonsmoker, no significant alcohol intake. PHYSICAL EXAMINATION: VITAL SIGNS: Currently afebrile. His maximum temperature is 97.7 axillary, heart rate 66, blood pressure 115/68. GENERAL: He was diaphoretic. He was awake, but very weak with increased muscle tone in the upper extremities and lower extremities. SKIN: Without decubitus or rash. No palpable adenopathy. [facility] [address] [place] [address] CONSULTATION Name: JINNY BURT Elly Room #: 238-P [facility] IN M.R.#: [id number] Admission: 02/18/19 ������������������ Attend Phys: Maricarmen Mario Discharge: 02/23/19 ������������������ Date of : 48 Report #: [id number] HEENT: Eyes without scleral icterus. Mouth without mucositis. Tracheostomy with a fairly large amount of peritracheal purulent secretions. Minimal output from suctioning. NECK: Otherwise, supple. LUNGS: Coarse breath sounds in the left posterior chest. HEART: Regular, without murmur, gallop or rub. ABDOMEN: Soft and nontender with no hepatosplenomegaly or mass appreciated. PEG site was without drainage. GENITOURINARY: External genitalia without lesion or rash with indwelling Hancock catheter. RECTAL: Not performed. EXTREMITIES: Without clubbing, cyanosis or edema. Cranial nerves intact. Marked debility with decreased strength in both upper and lower extremities. Mood depressed. Chest x-ray, left lung pulmonary infiltrate, underlying chronic lung disease with evidence of scarring. CT of the abdomen, stool in the colon. No intra-abdominal abscess or compromised bowel noted. LABORATORY DATA: Hemoglobin 7.5, WBC 23,000 with 84% segs, 13% bands, platelet count 305,000. BNP 1054. Sodium 131, potassium 5.9, bicarbonate greater than 45, creatinine 0.7. Liver function tests normal. Lipase 45. Urinalysis, wbc's and bacteria. Urine culture pending. Blood cultures pending. Sputum culture pending. ABGs on 60% FiO2, pO2 of 141, pCO2 of 78, pH 7.39. IMPRESSION: 1. A 68-year-old, with chronic ventilatory requirements, presents now with healthcare-associated left lung pneumonia with poor clearance of secretions associated with catheter-associated cystitis. The patient is markedly debilitated. Has evidence of sepsis with marked leukocytosis and left shift along with anemia. 2. Underlying chronic obstructive pulmonary disease. 3. Paroxysmal atrial fibrillation. RECOMMENDATION: We will continue IV antibiotic therapy with vancomycin, Zosyn and ciprofloxacin. It is noted the patient has previously had Pseudomonas pneumonia. We will await cultures of blood, urine and sputum. Continue aggressive care, ICU monitoring. I have discussed with nursing staff. We will repeat chest x-ray and laboratory studies. I have discussed the case with pulmonary medicine. We elected to hold off on bronchoscopy today and follow his chest x-rays. It does appear that the x-ray today is a bit improved from his [facility] [address] [place] [address] CONSULTATION Name: CARMELJINNY L Room #: 238-P [facility] IN M.R.#: [id number] Admission: 02/18/19 ������������������ Attend Phys: Maricarmen Mario Discharge: 02/23/19 ������������������ Date of : 48 Report #: [id number] study last evening. He will continue with pulmonary toilet and make adjustments accordingly. He will have repeat chest x-ray and laboratory studies in the a.m. ��������������������������������������������� <ELECTRONICALLY SIGNED> ���������������������������������������� By: Jose Luis Crouch MD ��������������������������������������������� 02/23/19 1946 1158 0101 Jose Luis Crouch MD /nt
--- NOTE | 2019-02-24 10:54 | D ---
[facility] [place] [address] DISCHARGE SUMMARY Name: JINNY BURT Room #: 238-P [facility] IN M.R.#: [id number] Admission: 02/18/19 ������������������ Attend Phys: Maricarmen Mario Discharge: 02/23/19 ������������������ Date of : 48 Report #: [id number] THIS REPORT FOR: //name// CC: Clayton Crouch DATE OF SERVICE: 02/23/2019 FINAL DIAGNOSES: 1. Healthcare-associated pneumonia. 2. Acute on chronic hypercapnic hypoxic respiratory failure. 3. Chronic obstructive pulmonary disease. 4. Ventilator dependence. 5. Tracheostomy tube dependence. 6. Adynamic ileus. 7. Chronic constipation. 8. Anemia of chronic disease. PROCEDURES: Bronchoscopy. HOSPITAL COURSE: The patient was admitted with shortness of breath. Pulmonary service made adjustments to the ventilator. Empiric antibiotics were ordered and ID followed. He underwent a therapeutic and diagnostic bronchoscopy, please see those separately dictated reports. Sputum cultures had Pseudomonas and Citrobacter organism. Dr. Crouch managed his antibiotics. With these adjustments, his pulmonary status stabilized to his baseline ventilator needs. He had no other interval complications. CT of the abdomen was obtained, which was unremarkable other than retained stool. PHYSICAL EXAMINATION: GENERAL: On the day of discharge, he was awake and alert, resting comfortably in bed. VITAL SIGNS: Stable, reviewed electronically. LUNGS: Clear. HEART: Regular. ABDOMEN: Soft, normoactive bowel sounds. PEG tube in place with tube feeding infusing. EXTREMITIES: Showed just trace edema. DISPOSITION: He is discharged back to [facility] under the care of Dr. Crouch. He will continue meropenem for 10 more days. I have signed and reviewed all his transfer medications, orders, tube feedings and notations [facility] [address] [place] [address] DISCHARGE SUMMARY Name: JINNY BURT Room #: 238-P [facility] IN .R.#: [id number] Admission: 02/18/19 ������������������ Attend Phys: Maricarmen Mario Discharge: 02/23/19 ������������������ Date of : 48 Report #: [id number] for the nursing staff. He will continue full code status as per his wish, but his prognosis is terminal. ��������������������������������������������� <ELECTRONICALLY SIGNED> ���������������������������������������� By: Devonte Awad MD ��������������������������������������������� 02/24/19 1054 1126 1943 Devonte Awad MD /nt
--- NOTE | 2019-02-24 14:06 | PATH ---
[facility] [address] [place] [address] PATHOLOGY RPT PROCEDURE Name: JINNY BURT Room #: 238-P [facility] IN .R.#: [id number] ������������������ Admission: 02/18/19 ������������������ Date of : 48 Discharge: 02/23/19 Report #: [id number] Path Case #: [id number] Note [facility] Accession Number: [id number] TESTS RESULT FLAG UNITS REF RANGE LAB Clinician Provided Cytology Information No. of containers..01 Other (Miscellaneous) Source: BRUSH TIP LLL DIAGNOSIS: BRUSH TIP LLL RARE CHRONIC INFLAMMATOTY CELLS AND MACROPHAGES; NO BRONCHIAL EPITHELIAL CELLS PRESENT FOR EXAMINATION. SCANT CELLULARITY. Pathologist ICD10: 02 J18.9 Signed out by: 02 Gililan Womack MD, Pathologist NPI- [id number] Performed by: Shilpi Bernabe [employer] ([facility]) FLAG LEGEND: L-Low Normal,H-High Normal,LL-Alert Low,HH-Alert High <-Panic Low,>-Panic High,A-Abnormal,AA-Critical Abnormal Performed at: [address] [place] [address] Chao Morse MD, [address] [address] Gillian Womack MD, Specimen Comment: A courtesy copy of this report has been sent to Specimen Comment: [phone], . Specimen Comment: Report sent to DR BARNARD / DR MOLINA Specimen Comment: Report sent to Specimen Comment: A duplicate report has been generated due to demographic updates. Performed at: [address], [place], [place] [id number] MD Chao Morse MD Phone: [phone]
--- NOTE | 2019-02-24 14:06 | PATH ---
[facility] [address] [place] [address] PATHOLOGY RPT PROCEDURE Name: JINNY BURT Room #: 238-P [facility] IN M.R.#: [id number] ������������������ Admission: 02/18/19 ������������������ Date of : 48 Discharge: 02/23/19 Report #: [id number] Path Case #: [id number] Note [facility] Accession Number: [id number] TESTS RESULT FLAG UNITS REF RANGE LAB Clinician Provided Cytology Information No. of containers..01 Other (Miscellaneous) Source: BAL LLL DIAGNOSIS: BAL LLL NEGATIVE FOR MALIGNANT CELLS. NORMAL BRONCHIAL CELLS AND MACROPHAGES ARE PRESENT. REACTIVE SQUAMOUS CELLS ARE PRESENT. Pathologist ICD10: 02 J18.9 Signed out by: 02 Gillian Womack MD, Pathologist NPI- [id number] Performed by: 01 Shilpi Bernabe, [facility]) Gross description: 01 15ML, PINK, CLOUDY /LCS FLAG LEGEND: L-Low Normal,H-High Normal,LL-Alert Low,HH-Alert High <-Panic Low,>-Panic High,A-Abnormal,AA-Critical Abnormal Performed at: [address] [place] [address] Chao Morse MD, [address] [address] Gillian Womack MD, Specimen Comment: A courtesy copy of this report has been sent to Specimen Comment: [phone], . Specimen Comment: Report sent to DR BARNARD / DR MOLINA Specimen Comment: Report sent to Specimen Comment: A duplicate report has been generated due to demographic updates. Performed at: [address], [place], [place] [id number] MD Chao Morse MD Phone: [phone]
== END 2019-02-23 13:14 | DRG 870 ==
LOC: ER 20:08 → EROBS 22:39 → ICU 22:39
PROVIDERS: Emergency Medicine; Internal Medicine Geriatric Medicine; Pediatrics; Specialist; ADMIT Internal Medicine
PROC: 5A1955Z Respiratory Ventilation, Greater than 96 Consecutive Hours (ICD-10-PCS; principal; 2019-02-18)
PROC: 02HV33Z Insertion of Infusion Device into Superior Vena Cava, Percutaneous Approach (ICD-10-PCS; 2019-02-20)
PROC: 0BDB8ZX Extraction of Left Lower Lobe Bronchus, Via Natural or Artificial Opening Endoscopic, Diagnostic (ICD-10-PCS; 2019-02-21)
PROC: 30233N1 Transfusion of Nonautologous Red Blood Cells into Peripheral Vein, Percutaneous Approach (ICD-10-PCS; 2019-02-21)
PROC: 0B9J8ZX Drainage of Left Lower Lung Lobe, Via Natural or Artificial Opening Endoscopic, Diagnostic (ICD-10-PCS; 2019-02-21)
DX: A41.9 Sepsis, unspecified organism (principal); J18.9 Pneumonia, unspecified organism; G92 Toxic encephalopathy; J96.21 Acute and chronic respiratory failure with hypoxia; J96.22 Acute and chronic respiratory failure with hypercapnia; T83.518A Infection and inflammatory reaction due to other urinary catheter, initial encounter; E87.1 Hypo-osmolality and hyponatremia; K56.0 Paralytic ileus; E46 Unspecified protein-calorie malnutrition; Z99.11 Dependence on respirator [ventilator] status; J43.9 Emphysema, unspecified; N30.90 Cystitis, unspecified without hematuria; R14.0 Abdominal distension (gaseous); I48.0 Paroxysmal atrial fibrillation; K59.09 Other constipation; D63.8 Anemia in other chronic diseases classified elsewhere; I48.2 Chronic atrial fibrillation; E87.5 Hyperkalemia; E87.8 Other disorders of electrolyte and fluid balance, not elsewhere classified; D64.9 Anemia, unspecified; N40.1 Benign prostatic hyperplasia with lower urinary tract symptoms; B96.1 Klebsiella pneumoniae [K. pneumoniae] as the cause of diseases classified elsewhere; Y83.8 Other surgical procedures as the cause of abnormal reaction of the patient, or of later complication, without mention of misadventure at the time of the procedure; I10 Essential (primary) hypertension; F41.9 Anxiety disorder, unspecified; Z79.1 Long term (current) use of non-steroidal anti-inflammatories (NSAID); Z93.0 Tracheostomy status; Z79.899 Other long term (current) drug therapy; Z68.28 Body mass index [BMI] 28.0-28.9, adult; Y92.89 Other specified places as the place of occurrence of the external cause; Y95 Nosocomial condition
CPT/HCPCS: 10078; 27000; 85076